=== PATIENT | male | born 1965 | race Caucasian/White ===

== ENCOUNTER 2023-12-09 09:53 | Emergency (ER) | payer OTHER, SELFPAY ==
[2023-12-09 10:07] VITALS: BP 113/71; PULSE 82; RESP 16; TEMP 36.6; O2SAT 93; BMI 31.3
[2023-12-09 10:24] LABS: Basophils Absolute Auto 0.1 X10*3/uL (0.0-0.2); Basophils Percent Auto 1.5 % (0-2); Eosinophils Absolute Auto 0.1 X10*3/uL (0.0-0.4); Eosinophils Percent Auto 1.8 % (0-4); Hematocrit 44.3 % (42.0-52.0); Hemoglobin 15.9 g/dl (14.0-18.0); Imm Gran Abs Auto 0.03 X10*3/uL (0.00-0.03); Imm Gran Pct Auto 0.4 % (0.0-0.4); Lymphocytes Percent Auto 25.6 % (20-40); MANUAL DIFF FLAG NO; Mean Corpuscular HGB Conc 35.9 g/dl (31.0-36.0); Mean Corpuscular Hemoglobin 35.1 pg (27.0-33.0); Mean Corpuscular Volume 97.8 fL (80.0-98.0); Mean Platelet Volume 9.1 fL (9.4-12.4); Monocytes Absolute Auto 0.7 X10*3/uL (0.1-1.2); Monocytes Percent Auto 9.5 % (2-11); Neutrophils Absolute Auto 4.8 x10*3/uL (2.0-8.3); Neutrophils Percent Auto 61.2 % (45-73); Platelet Count 219 X10*3/uL (160-400); Red Blood Count 4.53 X10*6/uL (4.60-5.80); Red Cell Distribution Width 12.2 % (11.0-16.0); White Blood Count 7.8 X10*3/uL (4.8-10.8)
[2023-12-09 10:38] LABS: Alanine Aminotransferase 33 U/L (0-40); Albumin Level 4.3 g/dL (3.5-5.0); Alkaline Phosphatase 51 U/L (39-117); Anion Gap 11 (12-20); Aspartate Amino Transferase 50 U/L (5-37); Bilirubin Total 0.4 mg/dL (0.0-1.0); Blood Urea Nitrogen 5 mg/dL (9-16); Calcium 9.3 mg/dL (8.4-10.2); Carbon Dioxide 26 mmol/L (22-29); Chloride 98 mmol/L (96-108); Creatinine Clr Calc Pharmacy 99.3; Estimated Glomerular Filt Rate > 60; Glucose Random 166 mg/dL (60-115); Lipase 17 U/L (8-78); Potassium 4.3 mmol/L (3.3-5.1); Sodium 131 mmol/L (135-145)
--- NOTE | 2023-12-09 11:07 | ED_ITS ---
HPI - General Adult General Chief complaint: Abdominal Pain Stated complaint: hernia Time Seen by Provider: 12/09/23 10:31 Source: patient Mode of arrival: ambulatory History of Present Illness ED Provider: Areli FUENTES narrative: Patient is a 58-year-old male with history of L4/5 fusion presenting to the emergency department with primary complaint of mild periumbilical abdominal pain swelling for the past 3 weeks. He states ?I used to have an inny and now I have an outtie.? Denies recent weight gain. States that he noticed this around 3 weeks ago and describes pain as mild. Denies any nausea, vomiting, diarrhea, constipation. Denies any urinary symptoms. Denies fevers. Also complaining of left hip pain and tingling radiating down upper leg. States has history of L4/5 fusion and has had similar symptoms in the past, reports most recent symptoms have been ongoing for 6 months. Denies any precipitating fall/trauma. States he is seeing his primary care provider on 12/13. MD complaint: abdominal pain, hip pain Onset (ago): week(s) Location: abdomen Severity: mild Quality: aching Pain Consistency: colicky Relieving factors: rest Exacerbating factors: movement Associated symptoms: denies other symptoms Treatments prior to arrival: none Related Data Previous Rx's ?Medication ?Instructions ?Recorded lidocaine 5 % topical patch 1 patch topical DAILY #15 ea 12/09/23 naproxen 500 mg tablet 500 mg PO BID #14 tabs 12/09/23 prednisone 20 mg tablet 40 mg (2 x 20 mg) PO DAILY #10 tabs 12/09/23 Allergies Allergy/AdvReac Type Severity Reaction Status Date / Time shellfish derived Allergy Itching Verified 12/09/23 10:10 Review of Systems 2 Review of Systems: As per HPI. Yes all other systems are reviewed and are negative Constitutional: Constitutional: Reports as per HPI [facility] Social History Social History Advance Directives: No Advance Directives Information Provided: Yes Physical Exam ED Vital Signs: Vital Signs - 24 hr 12/09/23 10:07 Temperature 97.9 F Pulse Rate 82 Respiratory Rate 16 Blood Pressure 113/71 Pulse Oximetry 93 Oxygen Delivery Method Room Air BMI result Body Mass Index 31.3 Vital signs have been reviewed and appear to be correct. Blood pressure normal. Heart rate normal. Respiratory rate normal. Temperature normal. Oxygen saturation normal. Const General: cooperative and no acute distress Orientation/consciousness: oriented to person, oriented to place, oriented to time and patient oriented x3 Limitations: no limitations HENMT Head: Yes normocephalic and Yes atraumatic Ears: external ears normal General nose exam: Normal external nose present Face and sinus: Yes face symmetric Mouth: oropharynx normal and moist mucous membranes Throat: Yes uvula midline Eyes Pupils: Equal, round and reactive pupils present Neck Neck: Yes normal visual inspection and Yes supple Resp Effort & Inspection: normal respiratory effort and able to speak in complete sentences Auscultation: clear to auscultation bilaterally Cardio Rate: regular rate Rhythm: regular rhythm Heart sounds: S1 normal heart sound present and S2 normal heart sound present GI Inspection: Yes visible herniation (small (2cm) periumbilical) Palpation (GI): Soft to palpation, nontender, no guarding, Hernia present umbilical (small), no pulsatile masses and No Rebound tenderness present Auscultation: normoactive bowel sounds General: Yes no CVA tenderness Back/Spine/Pelvis Back: no CVA tenderness Skin General skin exam: elasticity normal and turgor normal Neuro General: oriented to person, oriented to place, oriented to time, patient oriented x3, moves all extremities, no focal motor deficits and CN's II-XI intact bilaterally Cranial nerves: Yes Equal, round and reactive pupils present Cognition (Neuro): normal cognition Extrem General: Yes full ROM, Yes no pedal edema and Yes no calf tenderness Left lower extremity: hip/thigh Details: normal to inspection and normal ROM; no tenderness and foot Details: vascular exam Details: dorsalis pedis pulse present and posterior tibial pulse present Psych Mental Status: mental status grossly normal Affect: normal affect Thought process: Normal thought process present Medical Decision Making Medical Decision Making MDM Narrative: Patient is a 58-year-old male with history of L4/5 fusion presenting to the emergency department with primary complaint of mild periumbilical abdominal pain swelling for the past 3 weeks. On exam patient is awake, A+Ox3, VS WNL, afebrile, normal neurological exam without focal deficits, physical exam findings as above. Given reported symptoms and physical exam findings, initial differential includes umbilical hernia, lumbar radiculopathy, lumbar strain. Do not suspect septic joint, patient has full ROM, no erythema or warmth. Do not suspect incarcerated hernia. Labs notable for no leukocytosis, grossly within normal limits. Will send prescription for short course of prednisone to decrease inflammation for lumbar radiculopathy. Will refer to General surgery but advised patient to discuss this at his upcoming PCP appointment. Return precautions discussed at bedside. Patient verbalized understanding of and agreement with plan. Differential Diagnosis Differential Diagnoses: The differential diagnosis associated with the presentation includes As per [facility] Lab Data [facility] Lab Attestation statement: I reviewed the patient's lab results. as per [facility] 12/09/23 10:19 12/09/23 10:19 Labs: Lab Results 12/09/23 Range/Units 10:19 WBC 7.8 (4.8-10.8) X10*3/uL RBC 4.53 L (4.60-5.80) X10*6/uL Hgb 15.9 (14.0-18.0) g/dl Hct 44.3 (42.0-52.0) % MCV 97.8 (80.0-98.0) fL MCH 35.1 H (27.0-33.0) pg MCHC 35.9 (31.0-36.0) g/dl RDW 12.2 (11.0-16.0) % Plt Count 219 (160-400) X10*3/uL MPV 9.1 L (9.4-12.4) fL Immature Gran % (Auto) 0.4 (0.0-0.4) % Neut % (Auto) 61.2 (45-73) % Lymph % (Auto) 25.6 (20-40) % Orange % (Auto) 9.5 (2-11) % Eos % (Auto) 1.8 (0-4) % Baso % (Auto) 1.5 (0-2) % Lymph # (Auto) 2.0 (1.2-4.9) X10*3/uL Orange # (Auto) 0.7 (0.1-1.2) X10*3/uL Eos # (Auto) 0.1 (0.0-0.4) X10*3/uL Baso # (Auto) 0.1 (0.0-0.2) X10*3/uL Abs Immat Gran (auto) 0.03 (0.00-0.03) X10*3/uL Absolute Neuts (auto) 4.8 (2.0-8.3) x10*3/uL Absolute Nucleated RBC 0.000 (0.0-0.012) X10*3/uL Nucleated RBC % (auto) 0.0 (0.0-0.2) /100WBC Sodium 131 L (135-145) mmol/L Potassium 4.3 (3.3-5.1) mmol/L Chloride 98 (96-108) mmol/L Carbon Dioxide 26 (22-29) mmol/L Anion Gap 11 L (12-20) BUN 5 L (9-16) mg/dL Creatinine 0.86 (0.5-1.4) mg/dL Estim Creat Clear Calc 99.3 Estimated GFR > 60 Random Glucose 166 H (60-115) mg/dL Calcium 9.3 (8.4-10.2) mg/dL Total Bilirubin 0.4 (0.0-1.0) mg/dL AST 50 H (5-37) U/L ALT 33 (0-40) U/L Alkaline Phosphatase 51 (39-117) U/L Total Protein 7.0 (6.5-8.0) g/dL Albumin 4.3 (3.5-5.0) g/dL Lipase 17 (8-78) U/L External Record Review External record reviewed: Inpatient record, Office record and Outpatient record Prescription Management I considered prescription management with: Pain Medication and Other Discharge Plan Discharge Clinical Impression: Hernia, umbilical, Left lumbar radiculopathy Patient Disposition: Home, Self-Care Instructions: Umbilical Hernia (ED), Acute Low Back Pain (ED), Lumbar Radiculopathy (ED), Umbilical Hernia Repair (DC) Additional Instructions: You were evaluated today for abdominal and hip pain. Your exam showed evidence of an umbilical hernia. Please follow-up with your primary care provider about this at your appointment next week. You are being referred to General surgery for further management. You are also being treated for lumbar radiculopathy which is likely causing your left hip pain with naproxen and prednisone. You are also being prescribed topical lidocaine patches which you can wear for up to 12 hours in a 24 hour period. Please take all prescriptions as directed. Return to the emergency department if you develop increasing abdominal pain, persistent vomiting, difficulty having bowel movements, fever, new weakness, numbness, tingling to your extremities or any other concerning symptoms. Prescriptions: New prednisone 20 mg tablet 40 mg PO DAILY Qty: 10 0RF lidocaine 5 % adhesive patch,medicated 1 patch topical DAILY Qty: 15 0RF Rx Instructions: leave on most painful area for up to 12 hrs naproxen 500 mg tablet 500 mg PO BID Qty: 14 0RF Referrals: [facility] General Surgeons [Provider Group] Print Language: Vietnamese
[2023-12-09 11:54] VITALS: BP 128/76; PULSE 75; RESP 16; TEMP 36.9; O2SAT 93
== END 2023-12-09 11:56 | disposition home or self-care (01) ==
PROVIDERS: Emergency Provider Emergency Medicine; PCP Internal Medicine
DX: K42.9 Umbilical hernia without obstruction or gangrene (principal); M54.16 Radiculopathy, lumbar region; Z98.1 Arthrodesis status
CPT/HCPCS: 36415; 80053; 83690; 85025; 99282; 99283

== ENCOUNTER 2024-02-08 08:57 | Outpatient (REF) | payer OTHER, SELFPAY | END 2024-02-08 08:58 | disposition home or self-care (01) | LOC: HO.BBR 08:57 | PROVIDERS: PCP Internal Medicine; Visit Provider Internal Medicine | DX: Z13.89 Encounter for screening for other disorder (principal) ==

== ENCOUNTER 2024-03-21 08:54 | Outpatient (REF) | payer OTHER, SELFPAY | END 2024-03-21 08:55 | disposition home or self-care (01) | LOC: HO.BBR 08:54 | PROVIDERS: PCP Internal Medicine; Visit Provider Internal Medicine | DX: Z13.89 Encounter for screening for other disorder (principal) ==

== ENCOUNTER 2024-04-11 09:13 | Outpatient (REF) | payer OTHER, SELFPAY | END 2024-04-11 09:14 | disposition home or self-care (01) | LOC: HO.BBR 09:13 | PROVIDERS: PCP Internal Medicine; Visit Provider Internal Medicine | DX: Z13.89 Encounter for screening for other disorder (principal) ==

== ENCOUNTER 2024-04-13 09:35 | Emergency (ER) | payer OTHER, SELFPAY ==
--- NOTE | ~2024-04-13 | XR_ITS ---
EXAMINATION: XR RIBS, RIGHT CLINICAL INFORMATION: Fall. Pain and shortness of breath. COMPARISON: None available. TECHNIQUE: PA view of the chest as well as 3 views of the right ribs. FINDINGS: Small right-sided hydropneumothorax. Linear scarring versus atelectasis within the adjacent right lung base. No left-sided pleural effusion. No left-sided pneumothorax. Unremarkable cardiomediastinal silhouette. There are mildly displaced fractures of the lateral aspect of the right 8th through 12th ribs. No concerning lytic or blastic osseous lesion. No abnormal soft tissue calcification. XR/XR ribs RT min 3V w CXR1V IMPRESSION: 1. Mildly displaced fractures of the lateral aspect of the right 8th through 12th ribs. 2. Small right-sided hydropneumothorax with linear scarring versus atelectasis within the adjacent right lung base. No left-sided pneumothorax. This critical result was discussed with LATASHA Shepherd at 11:45 AM on 04/13/2024, and it was ascertained that the content and urgency of the report was understood at the time of direct communication. Electronically signed by: Prasanth Cochran MD 04/13/2024 12:07 PM EDT
--- NOTE | ~2024-04-13 | CT_ITS ---
EXAMINATION: CT ABDOMEN AND PELVIS WITH CONTRAST CLINICAL INFORMATION: Question of abdominal bleeding, fractured ribs COMPARISON: None available. TECHNIQUE: Multidetector volumetric images were obtained from the superior aspect of the liver through the pubic symphysis following administration 85 mL of Omnipaque 350 intravenous contrast. Sagittal and coronal reformatted images were obtained on the technologist's workstation. Oral contrast: No This CT examination was performed using dose optimization techniques as appropriate, variously including the following: *Automated exposure control *Adjustment of mA and/or kV according to patient size (this includes techniques or standardized protocols for targeted exams where dose is matched to indication/reason for exam; i.e. extremities or head) *Use of iterative reconstruction technique DLP: 566 mGy-cm FINDINGS: LUNG BASES: There is small to moderate pleural effusion with adjacent atelectasis and [id number] right-sided pneumothorax . Partially visualized ribs on the right revealed fractures along the posterior axillary line LIVER, GALLBLADDER, AND BILIARY TREE: Liver is of low attenuation due to hepatic steatosis without evidence of rupture or lesions. The gallbladder is unremarkable with no evidence of radiopaque gallstones, gallbladder wall thickening, or obvious pericholecystic inflammatory changes. PANCREAS: Unremarkable. SPLEEN: Unremarkable. ADRENAL GLANDS: There is thickening of the left adrenal gland and less prominent thickening of the right adrenal gland without nodules KIDNEYS AND URETERS: The kidneys are normal in size, shape, and attenuation. No hydronephrosis, hydroureter, or calculi seen. No perinephric stranding. BLADDER: Unremarkable. GASTROINTESTINAL TRACT: The small and large bowel are unremarkable. The appendix is unremarkable. ABDOMINAL WALL: No significant hernia is appreciated. LYMPH NODES: Normal. VASCULAR: Aorta is mildly dilated, measured 2.9 x 2.5 cm infrarenal and calcified PELVIC VISCERA: Unremarkable. OSSEOUS STRUCTURES: No other fractures are identified. There are degenerative changes in lumbar spine CT/CT abdomen pelvis w IV con IMPRESSION: 1. Right-sided pneumothorax and pleural effusion. 2. Multiple right-sided rib fractures. 3. Hepatic steatosis. 4. Mild dilatation of infrarenal abdominal aorta. 5. Thickening of the adrenal glands. Fleischner guidelines were followed. Electronically signed by: Erika Dueñas MD 04/13/2024 03:43 PM EDT
--- NOTE | ~2024-04-13 | CT_ITS ---
EXAMINATION: CT HEAD WITHOUT CONTRAST CLINICAL INFORMATION: Fall COMPARISON: None available. TECHNIQUE: Contiguous axial imaging was performed from the skull base to vertex without intravenous administration of contrast. This CT examination was performed using dose optimization techniques as appropriate, variously including the following: *Automated exposure control *Adjustment of mA and/or kV according to patient size (this includes techniques or standardized protocols for targeted exams where dose is matched to indication/reason for exam; i.e. extremities or head) *Use of iterative reconstruction technique DLP: 775 mGy-cm FINDINGS: CT examination of the brain shows age-related involutional changes with prominence of the ventricles and sulci. Periventricular white matter hypodensities are evident, likely on the basis of chronic microvascular ischemic disease, perhaps somewhat greater than expected for age. There is a small left anterior ganglionic lacunar infarct.. No acute hemorrhage, mass effect or shift is evident. In the posterior fossa, the brainstem, cerebellum and fourth ventricle are unremarkable. The orbits and bony calvarium are intact. The right frontal sinus is under pneumatized and opacified. The paranasal sinuses and mastoid air cells are otherwise clear. CT/CT head/brain wo IV con IMPRESSION: 1. Involutional changes and microvascular disease perhaps somewhat greater than expected for age. 2. No acute hemorrhage, mass effect, shift or acute intracranial pathology. Electronically signed by: Agustin Garcia MD 04/13/2024 02:54 PM EDT
--- NOTE | ~2024-04-13 | CT_ITS ---
EXAMINATION: CT CERVICAL SPINE WITHOUT CONTRAST CLINICAL INFORMATION: Fall. COMPARISON: None available. TECHNIQUE: Contiguous axial imaging was performed from the upper chest through the skull base without intravenous administration of contrast. Coronal and sagittal reformats were obtained at the acquisition workstation. This CT examination was performed using dose optimization techniques as appropriate, variously including the following: *Automated exposure control. *Adjustment of mA and/or kV according to patient size (this includes techniques or standardized protocols for targeted exams where dose is matched to indication/reason for exam; i.e. extremities or head). *Use of iterative reconstruction technique. DLP: 567 mGy-cm FINDINGS: The atlantooccipital and atlantoaxial articulations remain well aligned. Moderate degenerative arthropathy of the atlantodental articulation. Straightening of the normal cervical lordosis. Otherwise, there is anatomic alignment of the vertebral bodies and posterior elements. No evidence of acute fracture or subluxation. Mild degenerative loss of C6 vertebral body height. The remaining vertebral body heights are maintained. Advanced degenerative disc disease at C2-C3. Moderate degenerative disc disease from C3-C6. Facet and uncovertebral joint arthropathy leads to osseous encroachment on the neural foramina from C2-T1. There is no prevertebral soft tissue swelling. The thyroid gland and remaining cervical soft tissues are within normal limits. The lung apices demonstrate no abnormalities. CT/CT cervical spine wo IV con IMPRESSION: 1. No evidence of acute fracture or traumatic subluxation of the cervical spine. 2. Moderate multilevel degenerative spondyloarthropathy of the cervical spine. Electronically signed by: Lucho Oneal DO 04/13/2024 03:07 PM EDT
--- NOTE | ~2024-04-13 | CT_ITS ---
EXAMINATION: CT CHEST WITH CONTRAST CLINICAL INFORMATION: Right hydropneumothorax COMPARISON: None available. TECHNIQUE: Multidetector volumetric CT imaging of the chest was obtained after the administration of 85 mL of Omnipaque 350 intravenous contrast without immediate adverse reactions. Axial MIP volume rendering provided. Sagittal and coronal reformatted images were obtained. This CT examination was performed using dose optimization techniques as appropriate, variously including the following: *Automated exposure control *Adjustment of mA and/or kV according to patient size (this includes techniques or standardized protocols for targeted exams where dose is matched to indication/reason for exam; i.e. extremities or head) *Use of iterative reconstruction technique DLP: 360 mGy-cm FINDINGS: LUNGS: Lungs are clear but there is mild to moderate hydropneumothorax on the right. There is atelectasis in the right lower lobe MEDIASTINUM: The mediastinum is normal. PLEURA: There is right-sided small pleural effusion AXILLA: No lymphadenopathy. UPPER ABDOMEN: Liver is of low attenuation due to hepatic steatosis there is thickening of the left adrenal gland. OSSEOUS STRUCTURES: 5 lower ribs on the right revealed evidence of fracture, including ribs 8,9, 10, [address]/CT chest w IV con IMPRESSION: 1. Mild to moderate hydropneumothorax on the right. 2. Atelectasis in the right lower lobe. 3. Hepatic steatosis. 4. Thickening of the left adrenal gland. 5. Multiple ribs fractures are Fleischner guidelines were followed. Electronically signed by: Erika Dueñas MD 04/13/2024 03:34 PM EDT
[2024-04-13 09:54] VITALS: BP 112/67; PULSE 93; RESP 16; TEMP 36.6; O2SAT 96; BMI 29.4
[2024-04-13 10:51] VITALS: BP 115/70; PULSE 87; RESP 14; O2SAT 93
--- OUTSIDE RECORDS SUMMARY | 2024-04-13 10:58 | XMS_ITS | Continuity of Care Document ---
Author Organization [facility] Address [address] [place] [id number]- Care Team Providers Care Show Host Name Role Phone Tevin FLORIAN, Trent Lopez Primary Care Physician Encounter [facility] [place] Date(s): 09/18/19 - 09/28/[address] [address]- [facility] Attending Physician: Lawanda Wagner Admitting Physician: Lawanda Wagner Referring Physician: AdmtrLawanda Allergies, Adverse Reactions, Alerts Substance Reaction Severity Status shellfish itching Active Immunizations Given and Recorded Vaccine Date Status Refusal Reason tetanus/diphtheria/pertussis, acel(Tdap) 01/28/17 Given Pneumococcal Vaccine (oldterm) 1 02/11/07 Given 1Result Comment: lot # [id number] exp november 01, 2008 Medications Afeditab CR 60 mg oral tablet, extended release 1 tablet = 60 mg, By Mouth, Daily, # 30 tablet, 0 Refills, Maintenance, 10/07/18 9:01:40 EDT, ER Tablet Start Date: 10/07/18 Status: Ordered metoprolol 200 mg oral tablet, extended release 1 tablet = 200 mg, By Mouth, Daily, # 30 tablet, 0 Refills, Maintenance, 10/07/18 9:01:39 EDT, ER Tablet Start Date: 10/07/18 Status: Ordered multivitamin Therapeutic Multiple Vitamins oral tablet 1 tablet, By Mouth, Daily, # 30 tablet, 0 Refills, Maintenance, 01/23/16 8:43:02, Tablet, 1 tablet By Mouth Daily Start Date: 01/23/16 Status: Ordered omeprazole 20 mg oral delayed release tablet 1 tablet = 20 mg, By Mouth, Daily, # 30 tablet, 3 Refills, Maintenance, 04/19/19 13:24:00 EDT Start Date: 04/19/19 Status: Ordered Problem List Condition Effective Dates Status Health Status Inform ant Alcohol abuse(Confirmed) Active Arthritis(Confirmed) 1 Active Chest swelling(Confirmed) Active Disorder of lung(Confirmed) Active Hemochromatosis(Confirmed) Active Hypertensive disorder(Confirmed) Active Pancreatitis(Confirmed) 2007 Active Tobacco abuse(Confirmed) Active 1Left Ankle Social History Social History Type Response Smoking Status Never smoker entered on: 02/26/15 Sex
--- OUTSIDE RECORDS SUMMARY | 2024-04-13 10:58 | XMS_ITS | Continuity of Care Document ---
Author Organization [facility] Address [address] [place] [address]- Care Team Providers Care Operations And Maintenance Manager Name Role Phone Not on Staff, PCP Primary Care Physician Unavail able Encounter [facility] [place] Date(s): 05/23/21 - 06/22/21 [facility] [address] [place] [address]- Attending Physician: Lawanda Wagner Admitting Physician: Lawanda Wagner Referring Physician: AdmtrLawanda Allergies, Adverse Reactions, Alerts Substance Reaction Severity Status shellfish itching Active Immunizations Given and Recorded Vaccine Date Status Refusal Reason SARS-CoV-2 (COVID-19) Ad26 vaccine 10/07/20 Given tetanus/diphtheria/pertussis, acel(Tdap) 01/28/17 Given Pneumococcal Vaccine (oldterm) [...] 13:24:00 EDT Start Date: 04/19/19 Status: Ordered Tylenol Extra Strength 500 mg oral tablet 2 tablet = 1,000 mg, By Mouth, Every 8 hours, 0 Refills, Maintenance, 10/17/19 8:21:00 EDT Start Date: 10/17/19 Status: Ordered Problem List Condition Effective Dates Status Health Status Inform ant Alcohol abuse(Confirmed) Active Arthritis(Confirmed) 1 Active Chest swelling(Confirmed) Active Disorder of lung(Confirmed) Active Hemochromatosis(Confirmed) Active Hypertensive disorder(Confirmed) Active Pancreatitis(Confirmed) 2006 Active Tobacco abuse(Confirmed) Active 1Left Ankle Social History Social History Type Response Smoking Status Never smoker entered on: 02/26/15 Sex
--- OUTSIDE RECORDS SUMMARY | 2024-04-13 10:58 | XMS_ITS | Continuity of Care Document ---
Author Organization [facility] Address [address] [place] [address]- Care Team Providers Care Rn Home Care Name Role Phone Not on Staff, PCP Primary Care Physician Unavail able [place] [facility] Date(s): 06/11/22 - 07/11/22 [facility] [address] [place] [address]- Attending Physician: Lawanda Wagner Admitting Physician: Lawanda [...] ER Tablet Start Date: 10/07/18 Status: Ordered gabapentin 300 mg oral capsule Refills 0, Maintenance, 06/15/22 9:53:00 EST, Partial fill upon patient request if the prescriptionis for a schedule II opioid drug. Start Date: 06/15/22 Status: Ordered metoprolol 200 mg oral tablet, [...] Date: 10/17/19 Status: Ordered Problem List Condition Confirmation Course Effective Dates Status H ealth Status Informant Alcohol abuse Confirmed Active Arthritis 1 Confirmed Active Chest swelling Confirmed Active Disorder of lung Confirmed Active Hemochromatosis Confirmed Active Hypertensive disorder Confirmed Active Pancreatitis Confirmed 2007 Active Tobacco abuse Confirmed Active 1Left Ankle Social History Social History Type Response Smoking Status Never smoker entered on: 02/26/15 Sex Patient Care team information Care Team Personnel Name: Itzel Alcantar RN Position: [facility] Rad RN Member Role: Primary Care Nurse Name: Margarita Rogers RN Position: [facility] Onco RN Member Role: Primary Care Nurse Name: Not on Staff, PCP Position: [facility] Physician (General Medicine) Member Role: PCP Care Team Related Persons Name: EMANUEL QUIROGA Address: [address] [place] [address] Name: EMANUEL LOUIS Address: home [address] [place] [address] Name: CEE FOWLER Address: [place] [address] Name: KEELEY PUENTES Address: home [address] [place] [address] Name: FRANCISCO BUSTILLO
--- OUTSIDE RECORDS SUMMARY | 2024-04-13 10:58 | XMS_ITS | Continuity of Care Document ---
Author Organization [facility] Address [address] [place] [address]- Care Team Providers Care Water Quality Control Engineer Name Role Phone Tevin FLORIAN, Trent Lopez Primary Care Physician Encounter [facility] [place] [facility] Date(s): 08/08/19 - 08/18/[address] [address]- [facility] Attending Physician: Lawanda Wagner Admitting [...]
--- OUTSIDE RECORDS SUMMARY | 2024-04-13 10:58 | XMS_ITS | Continuity of Care Document ---
Author Organization [facility] Address [address] [place] [address]- Care Team Providers Care Striping Machine Operator Name Role Phone Michael Hernandez MD Primary Care Physician Encounter [facility] [id number] Date(s): 08/08/19 - 01/10/[address] [address]- [facility] Discharge Disposition: A-D/C Home Attending Physician: Trent Abarca MD Admitting Physician: Trent Abarca MD Referring Physician: Chuckie Ingram MD Allergies, Adverse Reactions, Alerts Substance Reaction Severity [...]
--- OUTSIDE RECORDS SUMMARY | 2024-04-13 10:58 | XMS_ITS | Continuity of Care Document ---
Author Organization [facility] Address [address] [place] [address]- Care Team Providers Care Tack Puller Name Role Phone Not on Staff, PCP Primary Care Physician Unavail able [place] [facility] [place](s): 12/08/22 - 01/07/23 [facility] [address] [place] [id number] Attending Physician: Lawanda Wagner Admitting Physician: AdmLawanda bennett Referring Physician: Admtr, Lawanda Allergies, Adverse Reactions, Alerts Substance Reaction Severity [...] Team Personnel Name: Itzel Alcantar RN Position: [facility] Rad RN Member Role: Primary Care Nurse Name: Margarita Rogers RN Position: [facility] Onco RN Member Role: Primary Care Nurse Name: Not on Staff, PCP Position: [facility] Physician (General Medicine) Member Role: PCP Care Team Related Persons Name: EMANUEL QUIROGA Address: home [address] [id number] Name: EMAUNEL LOUIS Address: home [address] [place] [address] Name: CEE FOWLER Address: [place] [address] Name: KEELEY PUENTES Address: [address] [place] [address] Name: FRANCISCO BUSTILLO
--- OUTSIDE RECORDS SUMMARY | 2024-04-13 10:58 | XMS_ITS | Continuity of Care Document ---
Author Organization [facility] Address [address] [place] [address]- Care Team Providers Care Appraiser Real Estate Name Role Phone Not on Staff, PCP Primary Care Physician Unavail able Encounter [place] Date(s): 06/15/22 - 07/15/22 [facility] [address] [place] [address] Allergies, Adverse Reactions, Alerts Substance Reaction Severity [...] Team Personnel Name: Itzel Alcantar RN Position: [facility] Rad RN Member Role: Primary Care Nurse Name: Margarita Rogers RN Position: [facility] Onco RN Member Role: Primary Care Nurse Name: Not on Staff, PCP Position: [facility] Physician (General Medicine) Member Role: PCP Care Team Related Persons Name: EMANUEL QUIROGA Address: home [address] [place] [address] Name: EMANUEL LOUIS Address: home [address] [place] [address] Name: CEE FOWLER Address: [place] [address] Name: KEELEY PUENTES Address: home [address] [place] [address] Name: FRANCISCO BUSTILLO
--- OUTSIDE RECORDS SUMMARY | 2024-04-13 10:58 | XMS_ITS | Continuity of Care Document ---
Author Organization [facility] Address [address] [place] [address]- Care Team Providers Care Dispute Coordinator Name Role Phone Michael Hernandez MD Primary Care Physician Thong lam [place] [facility] [place] - 03/28/[address] [address]- [facility] Discharge Disposition: A-D/C Home Attending Physician: Michael Hernandez MD Admitting Physician: Michael Hernandez MD Referring Physician: Michael Hernandez MD Allergies, Adverse Reactions, Alerts Substance Reaction [...]
--- OUTSIDE RECORDS SUMMARY | 2024-04-13 10:58 | XMS_ITS | Continuity of Care Document ---
Author Organization [facility] C ancer Care Address [address] [place] [address]- Care Team Providers Care Animal Cop Name Role Phone Not on Staff, PCP Primary Care Physician Unavail able [place] [facility]22 - 08/15/22 [facility] [address] [place] [address]- Discharge Disposition: A-D/C Home Attending Physician: Dewey FLORIAN, Jeremias Kinney Admitting Physician: Jeremias Palomo MD Referring Physician: Not on Staff, Referring MD Allergies, Adverse Reactions, Alerts Substance Reaction [...] Active Tobacco abuse Confirmed Active 1Left Ankle Vital Signs Most recent to oldest [Reference Range]: 1 Height 172.72 cm (06/15/22 9:46 AM) Weight 84.8 kg (06/15/22 9:46 AM) Oxygen Saturation [94-100 %] 98 % (06/15/22 9:46 AM) Pulse Rate [55-90 bpm] 89 bpm (06/15/22 9:46 AM) Body Mass Index [18.5-24.99 kg/m2] 28.43 kg/m2 *H* (06/15/22 9:46 AM) Blood Pressure [90-138/55-84 mm Hg] 134/ 71mm Hg (06/15/22 9:46 AM) Temperature [96.8-100.4 DegF] 97.3 DegF (06/15/22 9:46 AM) Mode of Delivery (Oxygen) Room air (06/15/22 9:46 AM) Blood pressure sites Arm, right (06/15/22 9:46 AM) Temperature Route Oral (06/15/22 9:46 AM) Dry Weight 84.8 kg (06/15/22 9:46 AM) Weight Obtained Via Standing scale (06/15/22 9:46 AM) Dry Weight Obtained Via Standing scale (06/15/22 9:46 AM) Social History Social History Type Response Smoking Status Never smoker entered on: 02/26/15 Sex Note * Renea Frost: PERFORM, SIGN, VERIFY Event Display: Patient Education/Instruction Authored Date: [id number] [facility] *Heme/Onc Adult Clinical Summary Name PARVIZ QUIROGA Age 57 Years 1965 PCP Not on Staff, PCP PCP Phone Visit Date 06/11/2022 13:32:00 Additional Instructions: Scheduled Appointments?? Future Appointments ?No Future Appointments Scheduled Follow-Up Instructions ?? With: Address: When: Jeremias CastleDana [facility], [address] [place] [address] Hematology Oncology [place] [id number] [facility] (1) 06/14/2023 9:00 AM Diagnosis Medications: Please continue your medications until treatment is completed or stopped by your provider. Discuss any questions related to medications with your provider. Medications to Continue with No Changes These medications were not printed or sent to your pharmacy Acetaminophen (Tylenol Extra Strength 500 mg oral tablet) 2 tab(s) Oral every 8 hours. Next Dose: Gabapentin (gabapentin 300 mg oral capsule) Next Dose: Metoprolol (metoprolol 200 mg oral tablet, extended release) 1 tab(s) Oral Daily. Refills: 0. Next Dose: Multivitamin (multivitamin Therapeutic Multiple Vitamins oral tablet) 1 tab(s) Oral Daily. Refills:0. Next Dose: NIFEdipine (Afeditab CR 60 mg oral tablet, extended release) 1 tab(s) Oral Daily. Refills: 0. Next Dose: Omeprazole (omeprazole 20 mg oral delayed release tablet) 1 tab(s) Oral Daily. Refills: 3. Next Dose: Allergy Info:?? shellfish Medications Given This Visit Future Orders ?No future orders Vital Signs Height 172.72 cm Weight 84.8 kg BMI 28.43 kg/m2 Blood Pressure 134 mm Hg/71 mm Hg Temperature 97.3 DegF Pulse Rate 89 bpm Respiratory Rate 02 Sat Mode of Delivery 98 %/Room air You can now view a summary of your hospital visit from the comfort of your home through a free online portal called [employer]. [employer] is a website that allows you to securely view your medical information including discharge summary, medications and follow-up visits. ??You can alsosend a secure electronic message to your doctor???s office to request appointments, renew medications or just ask a question. You can enroll at [email or web address] or register during your next office visit. Disclaimer:?? The information provided is of a general nature and is intended to be used in conjunction with the recommendations and advice of your health care practitioner. ??Every effort has been made to ensure that the information provided is accurate and complete at the time it is provided to you however, as your needs change, or, as new ??information becomes available, different or additional instructions may be required. If you have questions, please consult with your primary care provider or pharmacist, as appropriate. ??This information is not intended to serve as substitution for assessment and evaluation by a qualified health care provider. If you do not have a primary care provider, you may find a [facility] provider by calling [facility] at [phone]. For information about the plan of care including goals and instructions for your diagnosis, please see the patient education orders section of this document. Patient Education Materials?? The content of this educational material or handout may have been modified, supplemented, or adapted from its original content and format to support your individualized medical care. Patient Care team information Care Team Personnel Name: Itzel Alcantar RN Position: [facility] Rad RN Member Role: Primary Care Nurse Name: Margarita Rogers RN Position: [facility] Onco RN Member Role: Primary Care Nurse Name: Not on Staff, PCP Position: [facility] Physician (General Medicine) Member Role: PCP Care Team Related Persons Name: JUNAIDEMANUEL Address: home [address] [place] [address] Name: EMANUEL LOUIS Address: home [address] [place] [address] Name: CEE FOWLER Address: [place] [address] Name: KEELEY PUENTES Address: home [address] [place] [address] Name: FRANCISCO BUSTILLO
--- OUTSIDE RECORDS SUMMARY | 2024-04-13 10:58 | XMS_ITS | Continuity of Care Document ---
Author Organization [facility] C ancer Care Address [address] [place] [address]- Care Team Providers Care Coconut Candy Maker Name Role Phone Not on Staff, PCP Primary Care Physician Unavail able Encounter [facility] [place] Date(s): 05/13/20 - 07/17/20 [facility] [address] [place] [address]- Discharge Disposition: A-D/C Home Attending Physician: Dewey [...]
--- OUTSIDE RECORDS SUMMARY | 2024-04-13 10:58 | XMS_ITS | Continuity of Care Document ---
Author Organization [facility] C ancer Care Address [address] [place] [address]- Care Team Providers Care District Extension Service Agent Name Role Phone Not on Staff, PCP Primary Care Physician Unavail able Encounter [facility] [place] Date(s): 12/08/22 - 05/11/23 [facility] [address] [place] [address]- Discharge Disposition: A-D/C Home Attending Physician: Dewey FLORIAN, Jeremias Kinney Admitting Physician: Dewey FLORIAN, Jeremias Kinney Referring Physician: Not on Staff, Referring MD [...] Team Personnel Name: Itzel Alcantar RN Position: [facility] Rad RN Member Role: Primary Care Nurse Name: Margarita Rogers RN Position: [facility] Onco RN Member Role: Primary Care Nurse Name: Not on Staff, PCP Position: [facility] Physician (General Medicine) Member Role: PCP Name: Jeremias Palomo MD Position: [facility] Physician - Oncology Med Service: Hematology & Oncology Member Role: Admitting Physician Address: Address: [address] [place] [address] Cancer Care [facility] [place] [address]- Care Team Related Persons Name: EMANUEL QUIROGA Address: home [address] [place] [address] Name: EMANUEL LOUIS Address: home [address] [place] [address] Name: CEE FOWLER Address: [place] [address] Name: KEELEY PUENTES Address: home [address] [place] [address] Name: FRANCISCO BUSTILLO
--- OUTSIDE RECORDS SUMMARY | 2024-04-13 10:58 | XMS_ITS | Continuity of Care Document ---
Author Organization [facility] C ancer Care Address [address] [place] [address]- Care Team Providers Care Scaffold Builder Name Role Phone Not on Staff, PCP Primary Care Physician Unavail able Encounter [facility] [place] Date(s): 06/07/23 - 01/10/24 [facility] [address] [place] [id number] Discharge Disposition: A-D/C Home Attending Physician: Dewey [...] Oncology Member Role: Admitting Physician Address: Address: [address] [place] [address] Cancer Care [facility] [place] [address]- Care Team Related Persons Name: EMANUEL QUIROGA Address: home [address] [place] [address] Name: EMANUEL LOUIS Address: home [address] [place] [address] Name: CEE FOWLER Address: [place] [address] Name: KEELEY PUENTES Address: home [address] [place] [address] Name: FRANCISCO BUSTILLO
--- OUTSIDE RECORDS SUMMARY | 2024-04-13 10:58 | XMS_ITS | Continuity of Care Document ---
Author Organization [facility] ancer [facility] Address [address] [place] [address]- Care Team Providers Care Casino Floor Person Name Role Phone Not on Staff, PCP Primary Care Physician Unavail able [place] [facility] 07/10/22 [facility] [address] [place] [address] Allergies, Adverse Reactions, Alerts Substance Reaction [...] Team Personnel Name: Itzel Alcantar RN Position: [facility] Rad RN Member Role: Primary Care Nurse Name: Margarita Rogers RN Position: [facility] Onco RN Member Role: Primary Care Nurse Name: Not on Staff, PCP Position: [facility] Physician (General Medicine) Member Role: PCP Care Team Related Persons Name: EMANUEL QUIROGA Address: home [address] [place] [address] Name: EMANUEL LOUIS Address: [address] [place] [address] Name: CEE FOWLER Address: [place] [address] Name: KEELEY PUENTES Address: home [address] [place] [address] Name: FRANCISCO BUSTILLO
--- OUTSIDE RECORDS SUMMARY | 2024-04-13 10:59 | XMS_ITS | Continuity of Care Document ---
Author Organization [facility] Address [address] [place] [address]- Care Team Providers Care Yard Pilot Name Role Phone Michael Hernandez MD Primary Care Physician Encounter [facility] [place] Date(s): 10/30/19 - 01/16/[address] [address]- [facility] Discharge Disposition: A-D/C Home Attending Physician: Michael Hernandez MD Admitting Physician: Michael Hernandez MD Referring Physician: Chuckie Ingram MD Allergies, [...]
--- OUTSIDE RECORDS SUMMARY | 2024-04-13 10:59 | XMS_ITS | Continuity of Care Document ---
Author Organization [facility] C ancer Care Address [address] [place] [address]- Care Team Providers Care Lift Supervisor Name Role Phone Not on Staff, PCP Primary Care Physician Unavail able Encounter [facility] Date(s): 05/23/21 - 03/11/22 [facility] [address] [place] [address]- Discharge Disposition: A-D/C Home Attending Physician: Dewey [...] 2007 Active Tobacco abuse(Confirmed) Active 1Left Ankle Vital Signs Most recent to oldest [Reference Range]: 1 Height 172.72 cm (05/30/21 9:20 AM) Weight 82.1 kg (05/30/21 9:20 AM) Pulse Rate [55-90 bpm] 79 bpm (05/30/21 9:20 AM) Body Mass Index [18.5-24.99] 27.52 *H* (05/30/21 9:20 AM) Blood Pressure [90-138/55-84 mm Hg] 122/ 68mm Hg (05/30/21 9:20 AM) Temperature [96.8-100.4 DegF] 97.2 DegF (05/30/21 9:20 AM) Blood pressure sites Arm, right (05/30/21 9:20 AM) Temperature Route Temporal (05/30/21 9:20 AM) Dry Weight 82.1 kg (05/30/21 9:20 AM) Weight Obtained Via Standing scale (05/30/21 9:20 AM) Dry Weight Obtained Via Standing scale (05/30/21 9:20 AM) Social History Social History Type Response Smoking Status Never smoker entered on: 02/26/15 Sex Care Team Personnel Name: Not on Staff, PCP
--- OUTSIDE RECORDS SUMMARY | 2024-04-13 10:59 | XMS_ITS | Continuity of Care Document ---
Author Organization [facility] C ancer Care Address [address] [place] [address]- Care Team Providers Care Multimedia Educational Specialist Name Role Phone Not on Staff, PCP Primary Care Physician Unavail able Encounter [facility] [place] Date(s): 05/13/20 - 06/12/20 [facility] [address] [place] [id number] Attending Physician: Lawanda Wagner Admitting Physician: Lawanda [...]
--- OUTSIDE RECORDS SUMMARY | 2024-04-13 10:59 | XMS_ITS | Continuity of Care Document ---
Author Organization [facility] C ancer Care Address [address] [place] [address]- Care Team Providers Care Supervisor In Circuit Testing Name Role Phone Not on Staff, PCP Primary Care Physician Unavail able Encounter [facility] Date(s): 05/17/20 - 06/16/20 [facility] [address] [place] [address]- Allergies, Adverse Reactions, Alerts Substance Reaction Severity [...]
--- OUTSIDE RECORDS SUMMARY | 2024-04-13 10:59 | XMS_ITS | Continuity of Care Document ---
Author Organization [facility] C ancer Care Address [address] [place] [address]- Care Team Providers Care Steamer Blocker Name Role Phone Not on Staff, PCP Primary Care Physician Unavail able Encounter [facility] [place] Date(s): 06/07/23 - 07/07/23 [facility] [address] [place] [id number] Attending Physician: Lawanda Wagner Admitting Physician: [...] Team Personnel Name: Itzel Alcantar RN Position: [facility] Rad RN Member Role: Primary Care Nurse Name: Margarita Rogers RN Position: [facility] Onco RN Member Role: Primary Care Nurse Name: Not on Staff, PCP Position: [facility] Physician (General Medicine) Member Role: PCP Care Team Related Persons Name: EMANUEL QUIROGA Address: home [address] [place] [id number] Name: EMANUEL LOUIS Address: home [address] [place] [address] Name: CEE FOWLER Address: [place] [address] Name: KEELEY PUENTES Address: home [address] [place] [address] Name: FRANCISCO BUSTILLO
--- OUTSIDE RECORDS SUMMARY | 2024-04-13 10:59 | XMS_ITS | Patient Health Record ---
Author Organization [facility] Address [address] [place], [place] [address] Care Team Providers Care Police Superintendent Name Role Phone No, PCP Primary Care Provider Lidia Novak Unavailable [phone] REASON FOR REFERRAL No Information SOCIAL HISTORY Sex Assigned At : Social History Observation Description Sex Assigned At Unknown PLAN OF TREATMENT No Information Insurance Providers Payer Name Payer Address Payer Phone Subscriber Number Group Number Insured Name Patient Relationship to Insured Coverage Start Date Coverage End Date [place] Medicare [place] [employer] [address] [place] [address] [id number] Justice Coello Self - patient is the insured 1
--- OUTSIDE RECORDS SUMMARY | 2024-04-13 10:59 | XMS_ITS | Continuity of Care Document ---
Author Organization [facility] Address [address] [place] [address]- Care Team Providers Care Lapel Padder Name Role Phone Michael Hernandez MD Primary Care Physician Thong lam [place] [facility] - 04/27/[address] [address]- [facility] Attending Physician: Lawanda Wagner Admitting Physician: Lawanda [...]
--- NOTE | 2024-04-13 11:19 | ED_ITS ---
HPI - General Adult General Chief complaint: Fall Stated complaint: sob-r flank pain-back pain Time Seen by Provider: 04/13/24 11:10 Source: patient Mode of arrival: ambulatory Limitations: no limitations History of Present Illness ED Provider: Reji Shepherd PA-C HPI narrative: 59 yold male with pmh of lumbar spine fusion and is a smoker presents to the ED for Right flank/rib pain since 04/02/2024 Since falling down stairs. Patient states he fell down 8 flights of stairs due to slippery carpet on 04/02/2024. Patient states he fell directly on right flank right rib area. Patient denies hitting head or loss of consciousness. Patient is not on any blood thinner. Patient denies any nausea, vomiting, coughing blood, rectal bleeding, chest pain shortness of breath of movement, headache, dizziness, or pain in lower extremities. Related Data Previous Rx's ?Medication ?Instructions ?Recorded lidocaine 5 % topical patch 1 patch topical DAILY #15 ea 12/09/23 naproxen 500 mg tablet 500 mg PO BID #14 tabs 12/09/23 prednisone 20 mg tablet 40 mg (2 x 20 mg) PO DAILY #10 tabs 12/09/23 oxycodone 5 mg capsule 5 mg PO Q8H PRN pain 3 days #9 caps 04/13/24 Allergies Allergy/AdvReac Type Severity Reaction Status Date / Time shellfish derived Allergy Itching Verified 04/13/24 09:56 Review of Systems 2 Review of Systems: Right flank rib pain Yes all other systems are reviewed and are negative [facility] Social History Social History Alcohol intake: current Alcohol intake frequency: 3 or more drinks per day Alcohol type: beer Smoked in Last 30 Days: Yes Use of substances other than those prescribed or required for medical reasons: Yes Substance Use Type: Marijuana Advance Directives: No Advance Directives Information Provided: Yes Do you have a plan to hurt others: No Plan Physical Exam ED Vital Signs: Vital Signs - 24 hr 04/13/24 09:54 04/13/24 10:51 04/13/24 14:33 Temperature 97.9 F Pulse Rate 93 87 78 Respiratory Rate 16 14 16 Blood Pressure 112/67 115/70 141/81 H Pulse Oximetry 96 93 91 L Oxygen Delivery Method Room Air Room Air Room Air 04/13/24 16:41 04/13/24 17:37 Temperature 97.4 F 97.4 F Pulse Rate 90 90 Respiratory Rate 10 L 10 L Blood Pressure 154/79 H 154/79 H Pulse Oximetry 93 94 Oxygen Delivery Method Room Air Room Air BMI result Body Mass Index 29.4 Const General: cooperative, healthy appearing, comfortable, no acute distress, well developed, alert, awake and Physically active Orientation/consciousness: patient oriented x3 [facility] Head: Yes normal to inspection, Yes No palpable skull fracture present, Yes normocephalic and Yes atraumatic Ears: hearing grossly normal bilaterally, external ears normal, TM's normal bilaterally, TM normal on the right, TM normal on the left, EAC's normal, mastoids normal and no periauricular adenopathy Eyes General: appearance normal, both eyes and all related structures Neck Neck: Yes normal visual inspection, Yes full ROM, Yes no lymphadenopathy, Yes no meningeal signs, Yes trachea midline, Yes supple, No anterior neck swelling and No tender Chest Chest palpation & inspection: normal inspection of the chest and normal palpation of entire chest wall Chest/axillae images: 2 1. Positive for right lower rib flank ecchymosis and tenderness on palpation. Negative for crepitus. Resp Effort & Inspection: normal respiratory effort and able to speak in complete sentences Auscultation: clear to auscultation bilaterally Cardio Jugular venous distension: no JVD Heart sounds: S1 normal heart sound present and S2 normal heart sound present GI Inspection: Yes normal to inspection Palpation (GI): Soft to palpation, not firm, nontender, no guarding and not rigid General: No CVA tenderness and Yes no CVA tenderness Back/Spine/Pelvis Back: no CVA tenderness, No CVA tenderness and No back tenderness Back/spine/pelvis image: 2 1. Positive for right flank/lower rib ecchymosis with tenderness on palpation Skin General skin exam: no rashes or lesions noted, elasticity normal and turgor normal Neuro General: patient oriented x3, gait normal, tone normal, moves all extremities, Normal light touch and pain sensation, no meningeal signs, no focal motor deficits, CN's II-XI intact bilaterally and normal sensation to monofilament Extrem General: Yes normal to inspection, Yes full ROM and Yes capillary refill normal Psych Appearance: grossly normal, well kempt and not disheveled Medications Administered Discontinued Medications Generic Name Dose Route Start Last Admin Trade Name Freq PRN Reason Stop Dose Admin Iohexol 85 ml 04/13/24 12:57 04/13/24 12:57 Iohexol 350 Mg/Ml 75 Ml Infus..Btl IV 04/13/24 12:58 85 ml ONCE ONE Administration Medical Decision Making Medical Decision Making [facility] Narrative: 59-year-old male right flank ecchymosis with tenderness on palpation due to fall on the stairs since 04/02. Patient's chest x-ray pending.. 12:30pm: Spoke with Dr. Rene recommends patient getting a chest CT/abdominal CT scan. Patient presently not in nay any distress. 16:41pm: CT scan results came back and confirms right hydropneumothorax. Patient is stable. Patient not in distress. Dr. Rene states no surgical intervention needed. He states patient is stable and hydropneumothorax is 11 days. he states patient could be addmite for pain control overnight and repeat chest x-ray in the morning. He states if patient does not want to be admitted and patient could be discharged with pain medication follow-up with his clinic. Patient explained worrisome signs and informed to return to the ED immediately. Patient does not want to be admitted and would like to be discharged with pain medication. Patient informed to follow-up with Dr. Rene in his clinic. 4:53pm: O2 saturation on ambulation 95% without any distress or SOB. Ealier reading 02 readings of 93% and 91% were error and positional. Resp rate before discharge was 16. Differential Diagnosis Differential Diagnoses: The differential diagnosis associated with the presentation includes (Pneumothorax, hemothorax) Admission/Observation Consideration of admission/observation: Escalation of care including admission/observation considered Consult Healthcare Provider Management of the patient was discussed with: Clinical Trial Leader (Dr. Rene) Lab Data [facility] Lab Attestation statement: I reviewed the patient's lab results. 04/13/24 12:05 04/13/24 12:05 Labs: Lab Results 04/13/24 Range/Units 12:05 WBC 10.4 (4.8-10.8) X10*3/uL RBC 4.38 L (4.60-5.80) X10*6/uL Hgb 15.3 (14.0-18.0) g/dl Hct 43.6 (42.0-52.0) % MCV 99.5 H (80.0-98.0) fL MCH 34.9 H (27.0-33.0) pg MCHC 35.1 (31.0-36.0) g/dl RDW 12.0 (11.0-16.0) % Plt Count 241 (160-400) X10*3/uL MPV 9.2 L (9.4-12.4) fL Immature Gran % (Auto) 0.4 (0.0-0.4) % Neut % (Auto) 63.7 (45-73) % Lymph % (Auto) 22.9 (20-40) % Hand % (Auto) 10.0 (2-11) % Eos % (Auto) 1.7 (0-4) % Baso % (Auto) 1.3 (0-2) % Lymph # (Auto) 2.4 (1.2-4.9) X10*3/uL Hand # (Auto) 1.0 (0.1-1.2) X10*3/uL Eos # (Auto) 0.2 (0.0-0.4) X10*3/uL Baso # (Auto) 0.1 (0.0-0.2) X10*3/uL Abs Immat Gran (auto) 0.04 H (0.00-0.03) X10*3/uL Absolute Neuts (auto) 6.6 (2.0-8.3) x10*3/uL Absolute Nucleated RBC 0.000 (0.0-0.012) X10*3/uL Nucleated RBC % (auto) 0.0 (0.0-0.2) /100WBC PT 10.8 L (10.9-12.4) SEC INR 0.9 (0.9-1.1) APTT 35.4 (26.0-36.8) SEC Sodium 136 (135-145) mmol/L Potassium 4.7 (3.3-5.1) mmol/L Chloride 100 (96-108) mmol/L Carbon Dioxide 28 (22-29) mmol/L Anion Gap 13 (12-20) BUN 6 L (9-16) mg/dL Creatinine 0.87 (0.5-1.4) mg/dL Estim Creat Clear Calc 94.2 Estimated GFR > 60 Random Glucose 90 (60-115) mg/dL Calcium 9.6 (8.4-10.2) mg/dL Total Bilirubin 0.4 (0.0-1.0) mg/dL AST 31 (5-37) U/L ALT 24 (0-40) U/L Alkaline Phosphatase 94 (39-117) U/L Total Protein 7.1 (6.5-8.0) g/dL Albumin 4.2 (3.5-5.0) g/dL Independent Interpretation I performed an independent interpretation of an: Plain X-Ray and CT Scan Radiology Impression Discussion of test interpretation with radiology: I have reviewed the radiologist's reading. Independent Historian Clinical information obtained from an independent historian. History obtained from or confirmed by: Other (Patient) External Record Review External record reviewed: Other (Prior visits) Discharge Plan Discharge Clinical Impression: Pneumothorax Patient Disposition: Home, Self-Care Instructions: Traumatic Pneumothorax (ED) Additional Instructions: Imaging shows stable pneumothorax that occurred 11 days ago. Return to the ED immediately for any chest pain, shortness of breath, swelling of the neck, swelling of the face, pale skin, diaphoresis, lips turning blue, or any other concerning symptoms. You need to follow-up immediately with Dr. Rene our thoracic surgeon. Prescriptions: New oxycodone 5 mg capsule 5 mg PO Q8H PRN (Reason: pain) 3 Days Qty: 9 0RF Rx Instructions: Partial Fill upon patient request. No Action prednisone 20 mg tablet 40 mg PO DAILY Qty: 10 0RF lidocaine 5 % adhesive patch,medicated 1 patch topical DAILY Qty: 15 0RF Rx Instructions: leave on most painful area for up to 12 hrs naproxen 500 mg tablet 500 mg PO BID Qty: 14 0RF Referrals: Jose Miguel Rene MD [Physician] - (Right hydropneumothorax) Stand Alone Forms: Work/School Release Interventions: ED Discharge Assessment Last Done: 04/13/24 17:37 Discharge Date/Time: 04/13/24 17:38 Print Language: Syriac
[2024-04-13 12:11] LABS: MANUAL DIFF FLAG NO
[2024-04-13 12:12] LABS: Basophils Absolute Auto 0.1 X10*3/uL (0.0-0.2); Basophils Percent Auto 1.3 % (0-2); Eosinophils Absolute Auto 0.2 X10*3/uL (0.0-0.4); Eosinophils Percent Auto 1.7 % (0-4); Hematocrit 43.6 % (42.0-52.0); Hemoglobin 15.3 g/dl (14.0-18.0); Imm Gran Abs Auto 0.04 X10*3/uL (0.00-0.03); Imm Gran Pct Auto 0.4 % (0.0-0.4); Lymphocytes Absolute Auto 2.4 X10*3/uL (1.2-4.9); Lymphocytes Percent Auto 22.9 % (20-40); Mean Corpuscular HGB Conc 35.1 g/dl (31.0-36.0); Mean Corpuscular Hemoglobin 34.9 pg (27.0-33.0); Mean Corpuscular Volume 99.5 fL (80.0-98.0); Mean Platelet Volume 9.2 fL (9.4-12.4); Neutrophils Absolute Auto 6.6 x10*3/uL (2.0-8.3); Neutrophils Percent Auto 63.7 % (45-73); Platelet Count 241 X10*3/uL (160-400); Red Blood Count 4.38 X10*6/uL (4.60-5.80); White Blood Count 10.4 X10*3/uL (4.8-10.8)
[2024-04-13 12:21] LABS: INTERNATIONAL NORM RATIO 0.9 (0.9-1.1); Prothrombin Time 10.8 SEC (10.9-12.4)
[2024-04-13 12:23] LABS: Partial Thromboplastin Time 35.4 SEC (26.0-36.8)
[2024-04-13 12:28] LABS: Alanine Aminotransferase 24 U/L (0-40); Albumin Level 4.2 g/dL (3.5-5.0); Alkaline Phosphatase 94 U/L (39-117); Anion Gap 13 (12-20); Aspartate Amino Transferase 31 U/L (5-37); Bilirubin Total 0.4 mg/dL (0.0-1.0); Blood Urea Nitrogen 6 mg/dL (9-16); Calcium 9.6 mg/dL (8.4-10.2); Carbon Dioxide 28 mmol/L (22-29); Chloride 100 mmol/L (96-108); Creatinine Clr Calc Pharmacy 94.2; Estimated Glomerular Filt Rate > 60; Glucose Random 90 mg/dL (60-115); Potassium 4.7 mmol/L (3.3-5.1); Sodium 136 mmol/L (135-145); Total Protein 7.1 g/dL (6.5-8.0)
[2024-04-13] MEDS: iohexoL 350 MG/ML 75 ML INFUS..BTL 85 ML IV (12:57)
[2024-04-13 14:33] VITALS: BP 141/81; PULSE 78; RESP 16; O2SAT 91
[2024-04-13 16:41] VITALS: BP 154/79; PULSE 90; RESP 10; TEMP 36.3; O2SAT 93
[2024-04-13 17:37] VITALS: BP 154/79; PULSE 90; RESP 10; TEMP 36.3; O2SAT 94
== END 2024-04-13 17:38 | disposition home or self-care (01) ==
PROVIDERS: Physician Assistant; Emergency Provider Emergency Medicine; PCP Internal Medicine
DX: J93.9 Pneumothorax, unspecified (principal); R06.02 Shortness of breath; R07.81 Pleurodynia; M54.2 Cervicalgia; R01.2 Other cardiac sounds; R51.9 Headache, unspecified; R07.89 Other chest pain; F17.210 Nicotine dependence, cigarettes, uncomplicated; Z79.899 Other long term (current) drug therapy
CPT/HCPCS: 36415; 70450; 71101; 71260; 72125; 74177; 80053; 85025; 85610; 85730; 94010; 99284; Q9967

== ENCOUNTER 2024-04-17 09:31 | Outpatient (AMB) | payer OTHER, SELFPAY ==
--- NOTE | 2024-04-17 09:33 | A.OFFVIS_ITS ---
Vital Signs 04/17/24 09:43 Weight 194 lb BP 103/56 L Blood Pressure Location Lt brachial Position Sitting Pulse 96 Intake Visit Reasons: Rt pneumothorax Intake Note: Patient here to follow up ED visit on 04-13-24. Patient c/o: smoker for 40+yrs. Denies difficulty breathing. Ground Host/Hostess Required: No Accompanied by: Self / Same As Patient Allergies shellfish derived Allergy (Verified 04/17/24 09:38) Itching HPI Comments Details: Patient seen for follow-up status post recent hospitalization for multiple right rib fractures. All things considered, patient is doing quite well. Has no respiratory issues or complaints. Is costal discomfort is improving [facility] Medical History (Updated 04/17/24 @ 09:41 by HOLLEY Alarcon) Torn rotator cuff Sciatic nerve disease HTN (hypertension) Surgical History (Updated 04/17/24 @ 09:48 by Jose Miguel Rene MD) Previous back surgery Social History (Updated 04/17/24 @ 09:42 by HOLLEY Alarcon) Alcohol intake: current Alcohol intake frequency: 3 or more drinks per day Alcohol type: beer Cigarettes Per Day: 10 Substance Use Type: Marijuana Physical Exam Vital Signs: Last Vital Signs Pulse 96 04/17/24 09:43 BP 103/56 L 04/17/24 09:43 Chest Other: Chest breath sounds bilaterally. Right costal tenderness. No evidence of any ecchymosis or bruising. O2 saturation 96%. Unlabored respiration Assessment & Plan Assessment & Plan (1) Multiple fractures of rib involving four or more ribs: Code(s): S22.49XA - Multiple fractures of ribs, unspecified side, initial encounter for closed fracture Category: Surgical Plan Of inspissated, patient was doing quite well. He is encouraged to continue doing his incentive spirometry and will otherwise follow-up with me p.r.n.. All questions answered. Medications: Discontinued prednisone Discontinued Reason: Patient no longer taking 40 mg (2 x 20 mg) PO DAILY 10 tabs 0RF oxycodone Partial Fill upon patient request. Discontinued Reason: Patient Completed Course 5 mg PO Q8H 3 days PRN 9 caps 0RF pain Coding Level of Care Code Est Pt Level 4 (04150) Diagnoses Multiple fractures of rib involving four or more ribs S22.49XA
[2024-04-17 09:43] VITALS: BP 103/56; PULSE 96
== END 2024-04-17 09:54 | disposition home or self-care (01) ==
PROVIDERS: PCP Internal Medicine; Visit Provider Surgery
DX: S22.49XA Multiple fractures of ribs, unspecified side, initial encounter for closed fracture (principal)
CPT/HCPCS: 99214

== ENCOUNTER 2024-04-24 | Outpatient (REF) | payer OTHER, SELFPAY ==
--- OUTSIDE RECORDS SUMMARY | 2024-06-16 14:08 | XMS_ITS | Patient Health Record ---
Author Organization [facility] Address [address], [place] [id number] Care Team Providers Care Child Care Aide Name Role Phone No, PCP Primary Care Provider Lidia Novak Unavailable [phone] Reason For Referral No Information Plan Of Treatment No Information Insurance Providers Payer Name Payer Address Payer Phone Subscriber Number Group Number Insured Name Patient Relationship to Insured Coverage Start Date Coverage End Date [place] [employer] [address] [facility] [place] [address] [id number] Justice Coello Self - patient is the insured 1
== END 2024-04-24 00:01 | disposition home or self-care (01) ==
LOC: CF
PROVIDERS: PCP Internal Medicine; Visit Provider Surgery
DX: S22.41XD Multiple fractures of ribs, right side, subsequent encounter for fracture with routine healing (principal)
CPT/HCPCS: 99212

== ENCOUNTER → 2025-01-04 09:35 | Outpatient (BNV) | payer OTHER, SELFPAY | PROVIDERS: PCP Internal Medicine; Visit Provider Radiology Diagnostic Radiology | DX: M76.01 Gluteal tendinitis, right hip (principal); M25.551 Pain in right hip | CPT/HCPCS: 72192; 73502 ==

== ENCOUNTER 2025-01-04 09:57 | Emergency (ER) | payer OTHER, SELFPAY ==
--- NOTE | ~2025-01-04 | XR_ITS ---
EXAMINATION: XR HIP, RIGHT CLINICAL INFORMATION: pain, decreased ROM after fall COMPARISON: None available. TECHNIQUE: AP pelvis, and 2 views of the right hip. FINDINGS: No fracture, dislocation, or suspicious bone lesion. The pelvis is intact. 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 Degenerative changes present in the lower lumbar spine. Normal femoral head contour is without evidence of AVN. There is amorphous calcification at the right greater trochanter, in keeping with calcific bursitis or tendinitis. Soft tissues demonstrate diffuse vascular calcification. XR/XR hip RT w PEL1V IMPRESSION: 1. No acute bony abnormalities of the pelvis or right hip. 2. Mild degenerative changes bilateral hip joints and bilateral SI joints. 3. Calcific bursitis and/or tendinitis of the right greater trochanter. Electronically signed by: Guy Dillard MD 01/04/2025 10:41 AM EDT
--- NOTE | ~2025-01-04 | CT_ITS ---
EXAMINATION: CT PELVIS WITHOUT CONTRAST CLINICAL INFORMATION: Trauma COMPARISON: None available. TECHNIQUE: Helical scanning was performed with submillimeter collimation through the pelvis. Sagittal and coronal multiplanar 2-D reconstructions were obtained. This CT examination was performed using dose optimization techniques as appropriate, variously including the following: *Automated exposure control *Adjustment of mA and/or kV according to patient size (this includes techniques or standardized protocols for targeted exams where dose is matched to indication/reason for exam; i.e. extremities or head) *Use of iterative reconstruction technique FINDINGS: PELVIS: The urinary bladder is intact. The prostate is normal in size. Imaged bowel structures appear normal. Normal appendix visualized. There is advanced calcific atheromatous disease of the aorta, iliac arteries, common and profunda femoral arteries. The pelvic girdle musculature is normal in attenuation without abnormal fluid collection or hematoma. OSSEOUS STRUCTURES: No fracture or dislocation is evident. No suspicious bone lesion. There is an old healed fracture of S5. The hip joints demonstrate mild degenerative arthritis bilaterally. The sacrum is intact. There is mild degenerative arthritis in both SI joints. There is advanced degenerative spondylosis of the lower lumbar spine. There are no lumbar fractures identified. There is calcific tendinopathy of the distal gluteus medius and minimus tendons on the right. (Series 7, image 62). There is inflammation of the distal muscle and myotendinous junction. CT/CT pelvis wo IV con IMPRESSION: 1. The sacrum, pelvis, and proximal femurs are intact without acute fracture. 2. There is calcific tendinopathy of the gluteus medius tendons on the right. There is mild associated inflammation of the distal gluteus medius muscle. 3. There is mild degenerative arthritis in both hip joints. 4. There is advanced calcific atheromatous disease of the imaged major arterial vasculature. Electronically signed by: Guy Dillard MD 01/04/2025 02:19 PM EDT
[2025-01-04 10:15] VITALS: BP 104/59; PULSE 72; RESP 18; TEMP 36; O2SAT 92; BMI 30.2
[2025-01-04 11:17] LABS: MANUAL DIFF FLAG NO
[2025-01-04 11:20] LABS: Hematocrit 44.0 % (42.0-52.0); Hemoglobin 15.8 g/dl (14.0-18.0); Imm Gran Abs Auto 0.03 X10*3/uL (0.00-0.03); Imm Gran Pct Auto 0.3 % (0.0-0.4); Lymphocytes Absolute Auto 1.7 X10*3/uL (1.2-4.9); Mean Corpuscular HGB Conc 35.9 g/dl (31.0-36.0); Mean Corpuscular Hemoglobin 34.5 pg (27.0-33.0); Mean Corpuscular Volume 96.1 fL (80.0-98.0); NRBC Abs Auto 0.000 X10*3/uL (0.0-0.012); NRBC Pct Auto 0.0 /100WBC (0.0-0.2); Platelet Count 175 X10*3/uL (160-400); Red Blood Count 4.58 X10*6/uL (4.60-5.80); White Blood Count 8.7 X10*3/uL (4.8-10.8)
[2025-01-04 11:34] LABS: Alanine Aminotransferase 42 U/L (0-40); Albumin Level 3.6 g/dL (3.5-5.0); Alkaline Phosphatase 94 U/L (39-117); Anion Gap 12 (12-20); Aspartate Amino Transferase 81 U/L (5-37); Blood Urea Nitrogen 3 mg/dL (9-16); Calcium 8.3 mg/dL (8.4-10.2); Carbon Dioxide 28 mmol/L (22-29); Chloride 98 mmol/L (96-108); Creatinine Clr Calc Pharmacy 115.2; Estimated Glomerular Filt Rate > 60; Potassium 3.3 mmol/L (3.3-5.1); Sodium 135 mmol/L (135-145); Total Protein 6.4 g/dL (6.5-8.0)
--- OUTSIDE RECORDS SUMMARY | 2025-01-04 12:28 | XMS_ITS | Clinical Summary ---
Author Organization [facility] Address [address] [place] [address] Care Team Providers Care Recreation Engineer Name Role Phone Luis Sandoval MD Primary Care Provider [phone] Allergies Active Allergy Reactions Criticality Noted Date Comments Shellfish 11/01/2023 Medications Medication Sig Dispensed Refills Start Date End Date Status METOPROLOL SUCCINATE PO Take by mouth. 0 Active NIFEDIPINE PO Take by mouth. 0 Active acamprosate (CAMPRAL) 333 MG tablet Take 2 tablets (666 mg total) by mouth 3 (three) times a day. 0 Active amLODIPine (NORVASC) tablet 5 mg Take 1 tablet (5 mg total) by mouth daily. 0 Active atorvastatin (LIPITOR) tablet 20 mg Take 1 tablet (20 mg total) by mouth daily. 0 Active escitalopram (LEXAPRO) 5 MG tablet Take 1 tablet (5 mg total) by mouth daily. 0 Active fenofibrate (TRICOR) tablet 145 mg Take 1 tablet (145 mg total) by mouth daily. 0 Active folic acid (FOLVITE) tablet 1 mg Take 1 tablet (1 mg total) by mouth daily. 0 Active gabapentin (NEURONTIN) 300 MG capsule Take 1 capsule (300 mg total) by mouth 2 (two) times a day. 0 Active meloxicam (MOBIC) 15 MG tablet Take 1 tablet (15 mg total) by mouth daily. 0 Active omeprazole (PriLOSEC) 20 MG capsule Take 1 capsule (20 mg total) by mouth daily. 0 Active thiamine mononitrate (VITAMIN B-1) 100 MG tablet Take 1 tablet (100 mg total) by mouth daily. 0 Active Active Problems Patient Care Coordination No te Formatting of this note migh t be different from the original. Therapeutic Phlebotomy - [facility] Problem Noted Date Diagnosed Date Stenosis, cervical spine 09/16/2018 Subacromial bursitis of right shoulder joint 12/2018 Neck and shoulder pain 09/01/2018 Family History Medical History Relation Name Comments Diabetes Father Heart disease Mother Hypertension Mother Relation Name Status Comments Father Mother Social History Tobacco Use Types Packs/Day Years Used Date Smoking Tobacco: Every Day Cigarettes 47 Smokeless Tobacco: Never Tobacco Cessation:Ready to Q uit: Not Asked; Counseling Given: Not Answered Alcohol Use Standard Drinks/Week Comments Yes 0 (1 standard drink = 0.6 oz pur e alcohol) Sex and Gender Information Value Date Recorded Sex Assigned at Not on file Gender Identity Not on file Sexual Orientation Not on file Job Start Date Occupation Industry Not on file Not on file Not on file Last Filed Vital Signs Vital Sign Reading Time Taken Comments Blood Pressure 94/58 04/10/2024 10:27 AM EDT Pulse 95 04/10/2024 10:27 AM EDT Temperature 36.7 C (98 F) 04/10/2024 10:27 AM EDT Respiratory Rate - - Oxygen Saturation 94% 04/10/2024 10:27 AM EDT Inhaled Oxygen Concentration - - Weight 88.5 kg (195 lb) 04/10/2024 10:27 AM EDT Height 170.2 cm (5' 7 ) 04/10/2024 10:27 AM EDT Body Mass Index 30.54 04/10/2024 10:27 AM EDT Plan of Treatment Health Maintenance Due Date Last Done Comments Hepatitis C Screening 1965 Depression Screening 1976 BMI Counseling 01/14/1982 Preventative Health Evaluation 01/14/1982 DTap / Tdap / Td (1 - Tdap) 01/14/1983 Pneumococcal Vaccine (2 of 2 - PCV) 02/12/2008 02/11/2007 Colon Cancer Screening (Colonoscopy) 01/14/2009 Shingrix-Zoster Vaccine (1 o f 2) 01/14/2014 COVID-19 Vaccine (2 - 2023-2 5 season) 2024 10/07/2020 Influenza Vaccine (#1) 2025 3, 03/17/2021, 03/21/2020 RSV Adult > 60+ Yrs or (1 - 1-dose 75+ series) 01/14/2039 Hepatitis B Vaccines Aged Out No long er eligible based on patient's age to complete this topic RSV Ped < 20 months Aged Out No longe r eligible based on patient's age to complete this topic Care Teams Recreation Engineer Relationship Specialty Start Date End Date Luis Sandoval MD [address] [place] [address] [phone] PCP - General Primary Care 06/14/23
--- OUTSIDE RECORDS SUMMARY | 2025-01-04 12:28 | XMS_ITS | Clinical Summary ---
Author Organization [facility] [address] [place] [address] [place] [phone] Phone Care Team Providers Care Dope House Operator Helper Name Role Phone Luis Sandoval MD Primary Care Provider Allergies Active Allergy Reactions Criticality Noted Date Comments Shellfish Derived 11/01/2023 Medications acamprosate (CAMPRAL) 333 mg EC tablet Take 2 tablets (666 mg total) by mouth 3 (three) times a day. Active NIFEdipine CC (ADALAT CC) 60 mg 24 hr tablet TAKE 1 TABLET BY MOUTH DAILY 90 tablet 1 4 Active metoprolol succinate (TOPROL-XL) 200 mg 24 hr tablet TAKE 1 TABLET(200 MG) BY MOUTH 1 TIME EACH DAY 90 tablet 5 Active Vitamin B-1 100 mg tablet TAKE 1 TABLET BY MOUTH EVERY DAY 90 tablet 5 Active omeprazole (PriLOSEC) [address] capsule TAKE 1 CAPSULE BY MOUTH DAILY 90 capsule 1 5 Active folic acid (FOLVITE) 1 mg tablet TAKE 1 TABLET BY MOUTH DAILY 90 tablet 1 5 Active acetaminophen (Tylenol Extra Strength) 500 mg tablet Take 2 tablets (1,000 mg total) by mouth. 0 Active diclofenac (VOLTAREN) 1 % topical gel Apply 1 applicator topically. 4 Active lisinopriL (PRINIVIL,ZESTR IL) 10 mg tablet Take 1 tablet (10 mg total) by mouth 1 (one) time each day. Active atorvastatin (LIPITOR) 20 mg tablet Take 1 tablet (20 mg total) by mouth 1 (one) time each day. 90 tablet 1 5 Active cyclobenzaprine (FLEXERIL) 10 mg tabletIndicatio ns:Chronic midline low back pain without sciatica Take 1 tablet (10 mg total) by mouth at bedtime as needed for muscle spasms. 30 tablet 4 5 Active escitalopram (LEXAPRO) 10 mg tablet Take 1 tablet (10 mg total) by mouth 1 (one) time each day. 90 tablet 1 5 Active fenofibrate (TRICOR) 145 mg tablet Take 1 tablet (145 mg total) by mouth 1 (one) time each day. 90 tablet 1 5 Active gabapentin (NEURONTIN) 300 mg capsule Take 1 capsule (300 mg total) by mouth 2 (two) times a day. 180 each 1 5 Active albuterol HFA (PROAIR HFA ; PROVENTIL HFA ; VENTOLIN HFA) 90 mcg/actuation inhaler Inhale 2 puffs by mouth every 4 (four) hours if needed for wheezing. 6.7 g 3 5 Active fluticasone furoate-vilante roL (Breo Ellipta) 100-25 mcg/dose inhaler Inhale 1 puff by mouth 1 (one) time each day. 1 each 5 5 Active Active Problems Problem Noted Date Diagnosed Date Primary hypertension 10/18/2024 Hypertriglyceridemia 10/18/2024 Prediabetes 10/18/2024 Wolff's esophagus without dysplasia 10/18/2024 Chronic obstructive pulmonar y disease (CMS/HCC V24, CMS/HCC V28) 10/18/2024 Anxiety and depression 10/18/2024 Hemochromatosis 10/18/2024 Alcohol use disorder 10/18/2024 Lung nodule 07/26/2024 Stenosis, cervical spine 09/16/2018 Neck and shoulder pain 09/01/2018 Subacromial bursitis of right shoulder joint 12/2018 Encounters Date Type Department Care Team Description 12/11/2024 11:00 AM EDT Telemedicine Thoracic Surgery - [address] [address] Alanis Rob NP Lung nodule (Primary Dx) 11/21/2024 7:03 AM EDT - 11/21/2024 11:59 PM EDT Hospital Encounter [facility] CT Scan [address] [place] [id number] Lung nodule Discharge Disposition: Home or Self Care 10/30/2024 10:00 AM EDT Consult Gastroenterology - [place] [facility] [address] [facility] [address] [place] [address] Leana Joya NP Wolff's esophagus without dysplasia (Primary Dx); History of adenomatous polyp of colon; Tobacco use 10/30/2024 Telephone Gastroenterology - [place] [address] [facility] [address] [facility] [address] [place] [address] Leana Joya NP 10/18/2024 3:30 PM EDT Office Visit Adult Medicine [address] [phone] Luis Sandoval MD Primary hypertension (Primary Dx); Hypertriglyceridemia; Prediabetes; Wolff's esophagus without dysplasia; Chronic obstructive pulmonary disease, unspecified COPD type (CMS/HCC V24, CMS/HCC V28); Anxiety and depression; Alcohol use disorder; Hemochromatosis, unspecified hemochromatosis type; Chronic midline low back pain without sciatica; Screening for colorectal cancer; Screening for prostate cancer from Last 3 Months Surgical History Surgery Date Site/Laterality Comments LEG SURGERY PROCEDURE: HISTORICAL LEG SURGERY; COMMENT: ORIF Left Tibial Fx with hardware OTHER SURGICAL HISTORY PROCEDURE: LUMBAR SPINE FUSION, LAT TRANSVERSE ROTATOR CUFF REPAIR PROCEDURE: HISTORICAL ROTATOR CUFF REPAIR; COMMENT: BIlateral CARPAL TUNNEL RELEASE Right PROCEDURE: HI NEUROPLASTY &/TRANSPOS MEDIAN NRV CARPAL TUNNE SHOULDER SURGERY PROCEDURE:SHOULDER SURGERY BACK SURGERY PROCEDURE:BACK SURGERY HAND SURGERY PROCEDURE:HAND SURGERY Medical History Medical History Date Comments Alcoholism /alcohol abuse 02/15/2007 DX:Alc oholism /alcohol abuse; COMMENT: 02/09/07 Admitted to [facility] with alcoholic pancreatitis Depression 09/06/2018 DX:Depression 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 Hereditary hemochromatosis (CMS/HCC V24) 019 DX:Hereditary hemochromatosis (HCC) Hx of pancreatitis 08/01/2018 DX:Hx of panc reatitis Hypertension DX:Hypertension Tobacco use 08/01/2018 DX:Tobacco use Tremor 09/06/2018 DX:Tremor Hypertriglyceridemia 09/06/2018 DX:Hypertri glyceridemia Seizure ([facility] V24, [facility] V28) 03/14/2019 DX:Seizure ([facility]); COMMENT: Hospitalized 02/2019 COPD (chronic obstructive pu lmonary disease) ([facility] V24, [facility] V28) DX:COPD (chronic o bstructive pulmonary disease) ([facility]) Hypertension DX:Hypertension Family History Medical History Relation Name Comments Brain cancer Aunt Testicular cancer Brother Coronary artery disease Father Diabetes Father Brain cancer Maternal Grandfather Heart attack Mother fatal ate age 4 7 her 1st was 37 Heart disease Mother Hypertension Mother No Known Problems Sister Lung cancer Neg Hx Relation Name Status Comments Aunt Alive Brother Alive Father Maternal Grandfather Mother Sister Alive Social History Tobacco Use Types Packs/Day Years Used Date Smoking Tobacco: Every Day Cigarettes 1 49.4 Started: 08/01/1975 Smokeless Tobacco: Never Tobacco Cessation:Ready to Q uit: Not Asked; Counseling Given: Not Answered Alcohol Use Standard Drinks/Week Comments Yes 0 (1 standard drink = 0.6 oz pur e alcohol) Sex and Gender Information Value Date Recorded Sex Assigned at Male 07/07/2024 12:14 PM EST Legal Sex Male 7:00 PM EST Gender Identity Male 07/07/2024 12:14 PM EST Sexual Orientation Straight 07/07/2024 12 :14 PM EST Obstetrics History Last Filed Vital Signs Vital Sign Reading Time Taken Comments Blood Pressure 115/75 10/30/2024 10:06 AM EDT Pulse 100 10/30/2024 10:06 AM EDT Temperature 36.8 C (98.2 F) 10/18/2024 3:27 PM EDT Respiratory Rate 16 10/18/2024 3:27 PM EDT Oxygen Saturation 95% 10/30/2024 10:06 AM EDT Inhaled Oxygen Concentration - - Weight 87.1 kg (192 lb) 10/30/2024 10:06 AM EDT Height 170.2 cm (5' 7 ) 10/30/2024 10:06 AM EDT Body Mass Index 30.07 10/30/2024 10:06 AM EDT Plan of Treatment Health Maintenance Due Date Last Done Comments Hepatitis A Vaccines (1 of 2 - Risk 2-dose series) 01/14/1983 Pneumococcal Vaccine: 50+ Years (2 of 2 - PCV) 02/12/2008 02/11/2007 Pneumococcal Vaccine: Pediatrics (0 to 5 Years) and At-Risk Patients (6 to 49 Years) (2 of 2 - PCV) 02/12/2008 02/11/2007 Zoster Vaccines (1 of 2) 01/14/2014 Cholesterol Screening (Lipid Panel) 05/30/2022 Colorectal Cancer Screening: Colonoscopy 05/30/2022 Depression Screening 05/30/2022 HIV Screening 05/30/2022 Hepatitis C Screening 05/30/2022 Medicare Annual Wellness Visit 05/30/2022 Social Influencers of Health Screening 05/30/2022 Hypertension/CHF/CAD Annual BMP Blood Test 06/07/2022 RSV Immunization Adult Patients (1 - Risk 60-74 years 1-dose series) 2024 COVID-19 Vaccine (2 - season) 2024 10/07/2020 Influenza Vaccine (#1) 2025 3, 03/17/2021, 03/21/2020, Additional history exists Lung Cancer Screening (Low Dose CT) 03/22/2025 03/22/2024 DTaP,Tdap,and Td Vaccines (3 - Td or Tdap) 01/28/2027 01/28/2017, 06/28/1999 HIB Vaccines Aged Out No longer eligi ble based on patient's age to complete this topic HPV Vaccines Aged Out No longer eligi ble based on patient's age to complete this topic Hepatitis B Vaccines Aged Out No long er eligible based on patient's age to complete this topic IPV Vaccines Aged Out No longer eligi ble based on patient's age to complete this topic MMR Vaccines Aged Out No longer eligi ble based on patient's age to complete this topic Meningococcal ACWY Vaccine Aged Out N o longer eligible based on patient's age to complete this topic Meningococcal B Vaccine Aged Out No l onger eligible based on patient's age to complete this topic RSV Immunization Patients Under 20 months Aged Out No longer eligible based on patient's age to complete this topic Varicella Vaccines Aged Out No longer eligible based on patient's age to complete this topic Procedures Procedure Name Priority Date/Time Associated Diagnosis Comments CT CHEST WO CONTRAST (LUNG-RADS F/U) Routine 11/21/2024 7:35 AM EDT Lung nodule CT LUNG SCREENING LOW DOSE Routine 03/22/2024 9:08 AM EDT from Last 3 Months or Most Recently Relevant to Health Maintenance Results * CT Chest wo Contrast (Lung-RADS F/U) (11/21/2024 7:35 AM EDT) Anatomical Region Laterality Modality Body Computed Tomogra phy 11/21/2024 7:39 AM EDT Impressions 11/21/2024 7:54 AM EDT No suspicious change in a peripheral nodule in the posterior right lower lobe. No new suspicious abnormality. Recommend low-dose lung cancer screening CT in one year LUNG RADS: Lung-RADS 2: BENIGN S Modifier (Significant or Potentially Significant Findings): None present No suspicious nonpulmonary findings. RECOMMENDATIONS: 12 month screening low dose [address] -------- FINAL REPORT -------- Dictated By: Leonidas Latif Dictated Date: 11/21/2024 07:39 ET Assigned Physician: Leonidas Latif Reviewed and Electronically Signed By: Leonidas Latif Signed Date: 11/21/2024 07:54 ET Workstation ID: [id number] Transcribed By: Self Edit Transcribed Date: 11/21/2024 07:39 ET Narrative 11/21/2024 7:54 AM EDT EXAMINATION: CT CHEST WITHOUT CONTRAST CLINICAL INFORMATION: Right base lung nodule. Abnormal lung cancer screening CT. Evaluate for interval changes COMPARISON: Portions of previous 07/09/24, 03/20/24 TECHNIQUE: Multidetector CT. Examination of the chest. Examination of the chest without IV contrast. Reformatting in the coronal and sagittal planes. DLP: 173 mGy-cm Dose optimization was performed including the use of low-dose iterative reconstruction technique with automatic exposure control based on patient size. Type of contrast: None Volume of IV contrast: None Volume of contrast discarded: 0 mL FINDINGS: LUNG: No suspicious abnormalities the trachea or mainstem bronchi. There is some central airway wall thickening. LUNG NODULES: Slightly indistinct peripheral nodule posterior right lower lobe 11/21/24-0.5 cm 07/09/2024-0.5 cm 03/20/2024-mean diameter 0.7 cm No new suspicious nodule or mass. There are a few minor linear opacities. MEDIASTINUM: There is a stable circumscribed low density anterior mediastinal mass with average Hounsfield unit readings of -2. 5/-1.9 cm (4/39) 07/09/2024-2.0 cm (4/42) 03/20/2024-2.0 cm. CARDIAC: The heart is not enlarged. No pericardial fluid or thickening CORONARY CALCIFICATION: There are marked coronary calcifications. VASCULAR: There is no thoracic aortic aneurysm. The main pulmonary artery is normal caliber PLEURA: There is no pleural fluid or pneumothorax AXILLA/CHEST WALL: There are no enlarged axillary lymph nodes. No chest wall mass demonstrated VISUALIZED UPPER ABDOMEN: No suspicious abnormality on limited assessment of the visualized upper abdomen. Marked fatty change in the visualized portions of the liver MUSCULOSKELETAL: No suspicious focal bony lesion. There are multiple healing rib fractures. Alanis Rob NP IMG CT PROCEDURES Final Res ult * CT LUNG SCREENING LOW DOSE (03/22/2024 9:08 AM EDT) Anatomical Region Laterality Modality Computed Tomogra phy 03/20/2024 2:33 PM EDT Narrative 03/22/2024 9:[address] [facility] Diagnostic Imaging Department [address] [place], [place] [id number] Patient: JUNAIDJUSTICE./Age/Sex: 1965 - 59 - M Unit#: [id number] Location/Status: SPDICATLS/REG CLI Mnemonic/Ordering Site: [facility] Ordering Physician: NIKO ANDREW MD CT Lung Screening Low Dose - 03/20/24 - 1441 Report Status:Signed PROCEDURE: CT chest lung cancer screening low dose examination. INDICATION: CT lung screening. TECHNIQUE: Chest CT without intravenous contrast was performed. Low-dose examination was performed. Reformatted images were evaluated. DOSE: CTDIvol: 4.9mGy. Total exam DLP: 172.3mGy-cm COMPARISON: None. Baseline exam FINDINGS: NODULES: There is an 8 mm nodule in the periphery of the right lung base (series 3 image 180). No other significant nodularity noted. LUNGS: Minimal emphysematous changes. OTHER: Limited views of the upper abdomen appear normal. Coronary atherosclerotic disease. Minimal plaque in the aorta without aneurysm. No significant lymphadenopathy. Mild degenerative changes in the spine. IMPRESSION: There is a 8mm nodule at the posterior right lung base. Lung-RADS 4A. Follow up examination is advised in 3 months from this baseline exam. Dictating Physician: MORGAN HORNE MD Electronically Signed by: MORGAN HORNE MD Dic Date/Time: 03/22/24858 Sign date/Time: 03/22/24 0908 Procedure Note Morgan Horne MD - 04/12/2024 [facility] Diagnostic Imaging Department [address] [place] [address] Patient: JUSTICE COELLO Sisi Young/Age/Sex: 1965 - 59 - M Unit#: [id number] Location/Status: SPDICATLS/REG CLI Mnemonic/Ordering Site: [facility] Ordering Physician: NIKO ANDREW MD CT Lung Screening Low Dose - 03/20/24 - 1441 Report Status:Signed PROCEDURE: CT chest lung cancer screening low dose examination. INDICATION: CT lung screening. TECHNIQUE: Chest CT without intravenous contrast was performed.Low-dose examination was performed. Reformatted images were evaluated. DOSE: CTDIvol: 4.9mGy. Total exam DLP: 172.3mGy-cm COMPARISON: None. Baseline exam FINDINGS: NODULES: There is an 8 mm nodule in the periphery of the right lung base (series 3 image 180). No other significant nodularity noted. LUNGS: Minimal emphysematous changes. OTHER: Limited views of the upper abdomen appear normal. Coronary atherosclerotic disease. Minimal plaque in the aorta without aneurysm.No significant lymphadenopathy. Mild degenerative changes in the spine. IMPRESSION: There is a 8mm nodule at the posterior right lung base. Lung-RADS 4A. Follow up examination is advised in 3 months from thisbaseline exam. Dictating Physician: MORGAN HORNE MD Electronically Signed by: MORGAN HORNE MD Dic Date/Time: 03/22/2459 Sign date/Time: 03/22/24 0908 Niko Andrew MD IMG CT PROCEDURES Final Result from Last 3 Months or Most Recently Relevant to Health Maintenance Insurance [employer] MEDICARE Member Subscriber Plan / Payer (Ef fective 2018-Present) Name:JUSTICE COELLO Relation to Subscriber:Self Name:Justice Coello Payer ID:[id number] Group ID:[id number] Type:Not on file Address: [place] [address] [phone] Care Teams Dope House Operator Helper Relationship Specialty Start Date End Date Luis Sandoval MD [address] [place] [id number] PCP - General 06/14/23
--- OUTSIDE RECORDS SUMMARY | 2025-01-04 12:29 | XMS_ITS | Data Portability ---
Author Organization [place] [facility] Address [address] [place] [address] Care Team Providers Care Manager Animal Name Role Phone BROOKLYNN GANDHI Primary Care Provider Assessment Encounter Date Assessment Date Assessment LastModified by Organization Details LastModified Time 11/28/2024 11/28/2024 59-year-old man with ongoing debilitating back and radiating left leg pain over the last 2 years. No MRI. Had a lumbar laminotomy decompression here in 2017 which was quite effective. He had an MRI to rule out an ongoing compressive lesion. Will arrange and follow-up thereafter. Natural history reviewed and questions answered. [email or web address] Not available 11/28/2024 17:21:29 Plan of Treatment Reminders Order Date Submit Date Provider Last Modified By Organization Details Last Modified Time Details Appointments MUST SEE 15 2024 10:30A M Braden Conley MD Not available Not available Not available Lab None recorded. Referral None recorded. Procedures None recorded. Surgeries None recorded. Imaging XR, lumbar spine, 2 view - 320 lumbar 2v 2024 025 [facility], [address], [facility] [address], [place], [address], 12/01/2024 10:10:16 MRI, lumbar spine, w/o contrast - mri lumbar -eval for stenosis 2024 025 [facility] ([facility]), [address], [place], [address], 12/13/2024 16:06:36 Medication Orders None recorded. Patient TargetsNo targets recorded. Patient InstructionsNo instructions recorded. Reason for Referral None Reported. Results Created Date Observation Date Name Description Value Unit Range Abnormal Flag Note LastModifiedBy Organization Detail LastModifiedTime 11/29/19 25 11/28/2024 XR, lumba r spine , 2 view http:/ [email or web address] ?Encry pted=s hAaTro YD8dLq bEUv6g %2BXZw aYqtaq 0bqfl% 2Fg9IQ a4ajBk vP9nXo QUaueC m3YtLR FvZlgJ J8Ophiem HZtai3 0l5926 AC0Kla 3SEVaK mKiQtr MwF INTERFACE [facility] [address], [place], [address], 11/28/2024 15:10:47 11/29/19 25 11/28/2024 XR, lumba r spine , 2 view http:/ [email or web address] ?Encry pted=s hAaTro YD8dLq bEUv6g %2BXZw aYqtaq 0bqfl% 2Fg9IQ a4ajBk vP9nXo QUaueC m3YtLR FvZlgJ[facility]tai3 [id number] AC0Kla 3SEVaK mKiQtr MwF INTERFACE [facility] [address], [place], [address], 11/28/2024 15:10:48 12/14/19 25 12/12/2024 MRI, lumba r spine , w/o contr ast [facility] Access ion Number : [id number] Patito t Name: Thao Coello Medica l Record Number : [id number] Date of : 1964 Date of Exam: 2024 Referr ing Physic kirti: Braden Conley [address] [place] [address] Exam: MR Lumbar Spine (C-) CPT 74548 Room Descri ption: [facility] 3.0T MR Lumbar Spine (C-) CPT 64174 INDICA TION: Radicu lopath y, lumbar region mri lumbar -eval for stenos is Radicu lopath y, lumbar region mri lumbar -eval for stenos is TECHNI QUE: MRI of the lumbar spine was perfor med withou t intrav enous contra st utiliz ing sagitt al T1, sagitt al T2, sagitt al STIR, axial T1, and axial T2-bonifacio ghted sequen sage. COMPAR GEOFF: None. FINDIN GS: NUMBER ING: The study assume s 5 non-ri b-bear ing lumbar type verteb ral bodies . ALIGNM ENT, VERTEB JEFFRY, MARROW , AND DISCS: Alignm ent is normal . Verteb ral body height s are preser ashlyn. There are promin ent Modic type I signal change s at L2-L3 and L3-L4. There are Modic type II signal change s at L4-L5 and to a lesser extent at L2-L3 and L3-L4. Endpla te osteop hytes throug hout the lumbar spine. Diffus e disc desicc ation, with loss of interv ertebr al disc height which is most pronou nced at L3-L4 and L4-L5. Multip le small Schmor l's nodes. Multil evel facet arthro nerissa. CONUS: The conus is normal in signal and contou r, with normal level of termin ation at L1. PARASP INAL TISSUE S: There is atroph y of the piano regulator ior parasp inal muscul ature. DETAIL ED FINDIN GS BY LEVEL: L1-L2: Minima l disc bulge. Facet spurri ng. No signif icant canal stenos is. Mild bilate ral neural forami nal narrow ing. L2-L3: Diffus e disc bulge, ligame ntum flavum thicke marium, and facet arthro nerissa. No signif icant canal stenos is. Mild to modera te bilate ral neural forami nal narrow ing. L3-L4: Diffus e disc bulge, ligame ntum flavum thicke marium, and facet arthro nerissa. Mild spinal canal narrow ing. Modera te bilate ral neural forami nal narrow ing. L4-L5: Diffus e disc bulge, ligame ntum flavum thicke marium, and facet arthro nerissa. No signif icant canal stenos is. Mild left and severe right neural forami nal narrow ing with exitin g right L4 nerve root compre ssion. L5-S1: Diffus e disc bulge. Facet arthro nerissa. No signif icant canal stenos is. Severe left and mild to modera te right neural forami nal narrow ing with exitin g left L5 nerve root compre ssion. IMPRES CLAUDE: Degene rative change s of the lumbar spine as detail ed above. There is severe right neural forami nal narrow ing at L4-L5 and severe left neural forami nal narrow ing at L5-S1 with compre ssion of the exitin g nerve roots. Please correl ate for hanny cintron g distri bution sympto ms. Electr onical ly Signed By: Debbie severino [facility] ([facility]) [address], [place], [address], 12/14/2024 11:41:31 Result Notes Documentation Provider Name and Address Organization Details Recorded Time Xr, Lumbar Spine, 2 View : [email or web address]? Encrypted=irUiIpvNI6eIdlW Uv6g%5IAMdsUzbhs7zkgt%2Fg 9DGj5puWjaX7qXxVWnclKf7Jp GPQkIbcCYD5nDtQEswz59h547 8DK4Zjs3GTQvXyEvJeeEgN Not Available [facility] 11/28/2024 15:10:48 Xr, Lumbar Spine, 2 View : [email or web address] Encrypted=puFyGsrKC2nZaoV Uv6g%4TMWpdGlqgj9xmnh%2Fg 3SEv6yhKxsI0iAfDLocnLe4Sk FQKlMknJAI6nHiIXcgj31a909 4XY6Hwo4VTYtVrTrFzbIoT Not Available [facility] 11/28/2024 15:10:49 Mri, Lumbar Spine, W/o Contrast : [facility]: [id number] Patient Name: Justice Coello Date of : 1965 Date of Exam: 12-12-2024 Referring Physician: Braden Conley [address] [place] [address] Exam: MR Lumbar Spine (C-) CPT 02615 Room Description: [facility] 3.0T MR Lumbar Spine (C-) CPT 79924 INDICATION: Radiculopathy, lumbar region mri lumbar -eval for stenosis Radiculopathy, lumbar region mri lumbar -eval for stenosis TECHNIQUE: MRI of the lumbar spine was performed without intravenous contrast utilizing sagittal T1, sagittal T2, sagittal STIR, axial T1, and axial T2-weighted sequences. COMPARISON: None. FINDINGS: NUMBERING: The study assumes 5 ogt-lka-iblequo lumbar type vertebral bodies. ALIGNMENT, VERTEBRAE, MARROW, AND DISCS: Alignment is normal. Vertebral body heights are preserved. There are prominent Modic type I signal changes at L2-L3 and L3-L4. There are Modic type II signal changes at L4-L5 and to a lesser extent at L2-L3 and L3-L4. Endplate osteophytes throughout the lumbar spine. Diffuse disc desiccation, with loss of intervertebral disc height which is most pronounced at L3-L4 and L4-L5. Multiple small Schmorl's nodes. Multilevel facet arthropathy. CONUS: The conus is normal in signal and contour, with normal level of termination at L1. PARASPINAL TISSUES: There is atrophy of the posterior paraspinal musculature. DETAILED FINDINGS BY LEVEL: L1-L2: Minimal disc bulge. Facet spurring. No significant canal stenosis. Mild bilateral neural foraminal narrowing. L2-L3: Diffuse disc bulge, ligamentum flavum thickening, and facet arthropathy. No significant canal stenosis. Mild to moderate bilateral neural foraminal narrowing. L3-L4: Diffuse disc bulge, ligamentum flavum thickening, and facet arthropathy. Mild spinal canal narrowing. Moderate bilateral neural foraminal narrowing. L4-L5: Diffuse disc bulge, ligamentum flavum thickening, and facet arthropathy. No significant canal stenosis. Mild left and severe right neural foraminal narrowing with exiting right L4 nerve root compression. L5-S1: Diffuse disc bulge. Facet arthropathy. No significant canal stenosis. Severe left and mild to moderate right neural foraminal narrowing with exiting left L5 nerve root compression. IMPRESSION: Degenerative changes of the lumbar spine as detailed above. There is severe right neural foraminal narrowing at L4-L5 and severe left neural foraminal narrowing at L5-S1 with compression of the exiting nerve roots. Please correlate for corresponding distribution symptoms. Electronically Signed By: Debbie yu [facility] 12/14/2024 11:41:31 Problems Name Problem SNOMED Code Status Onset Date Resolution Date Notes Provider Name and Address Organization Details Recorded Time No complaints 384671710 Active Status: 'I'; Not Available [facility] 4 09:25:26 Lumbar radiculopat 422027494 Active 2024 Juju Munozburn, POLITICAL WORKER [address], [place], [address] , [facility] [place] 5 16:11:08 Full thickness rotator cuff tear 132444134 Active 2016 Problem Code: M75.121; Problem Code Type: ICD-10; Status: 'A'; Not Available [facility] 4 11:59:23 Problem Notes None recorded. Medical Equipment None Reported. Allergies No known drug allergies Medications Name Sig Start Date Stop Date Status Note LastModified by Organization Details LastModified Time cyclobenzap rine 10 mg tablet TAKE 1 TABLET BY MOUTH THREE TIMES DAILY active Not Available Not Available No t Available atorvastati n 20 mg tablet TAKE 1 TABLET BY MOUTH DAILY active Not Available Not Available No t Available tizanidine 4 mg tablet TAKE 1 TABLET BY MOUTH THREE TIMES DAILY active Not Available Not Available No t Available meloxicam 15 mg tablet TAKE 1 TABLET BY MOUTH DAILY NEEDED FOR PAIN active Not Available Not Available No t Available metoprolol succinate ER 200 mg tablet,exte nded release 24 hr TAKE 1 TABLET BY MOUTH DAILY active Not Available Not Available No t Available prednisone 20 mg tablet TAKE 3 TABLETS BY MOUTH DAILY FOR 3 DAYS THEN TAKE 2 TABLETS BY MOUTH DAILY FOR 3 DAYS THEN TAKE 1 TABLET BY MOUTH DAILY FOR 3 DAYS active Not Available Not Available No t Available amlodipine 5 mg tablet TAKE 1 AND 1/2 TABLETS BY MOUTH DAILY active Not Available Not Available No t Available oxycodone-a cetaminophe n 5 mg-325 mg tablet TAKE 1 TABLET BY MOUTH FOUR TIMES DAILY FOR 7 DAYS active Not Available Not Available No t Available pseudoephed rine-guaife nesin ER 80-700 mg tablet,exte nded release 1 po qid prn paIN 2013 active Statu s: 'Curr ent'; Not Available Not Available Not Available lisinopril 10 mg tablet TAKE 1 TABLET BY MOUTH DAILY active Not Available Not Available No t Available oxycodone 5 mg capsule TAKE 1 CAPSULE BY MOUTH EVERY 8 HOURS FOR 3 DAYS NEEDED FOR PAIN active Not Available Not Available No t Available gabapentin 300 mg capsule TAKE 1 CAPSULE BY MOUTH TWICE DAILY NEEDED FOR PAIN active Not Available Not Available No t Available omeprazole 20 mg capsule,del ayed release TAKE 1 CAPSULE BY MOUTH DAILY active Not Available Not Available No t Available folic acid 1 mg tablet TAKE 1 TABLET BY MOUTH DAILY active Not Available Not Available No t Available albuterol sulfate HFA 90 mcg/actuati on aerosol inhaler INHALE 2 PUFFS BY MOUTH EVERY 4 HOURS IF NEEDED FOR WHEEZING active Not Available Not Available No t Available Vitamin B-1 100 mg tablet TAKE 1 TABLET BY MOUTH EVERY DAY active Not Available Not Available No t Available nifedipine ER 60 mg tablet,exte nded release TAKE 1 TABLET BY MOUTH DAILY active Not Available Not Available No t Available naproxen 500 mg tablet TAKE 1 TABLET BY MOUTH TWICE DAILY active Not Available Not Available No t Available escitalopra m 10 mg tablet TAKE 1 TABLET BY MOUTH DAILY active Not Available Not Available No t Available acamprosate 333 mg tablet,ángel yed release TAKE 2 TABLETS BY MOUTH THREE TIMES DAILY active Not Available Not Available No t Available fenofibrate nanocrystal lized 145 mg tablet TAKE 1 TABLET BY MOUTH DAILY active Not Available Not Available No t Available diclofenac 1 % topical gel APPLY TOPICALLY TWICE DAILY NEEDED FOR LOWER BACK PAIN active Not Available Not Available No t Available oxycodone HCl-oxycodo ne-ASA as directed 1-2TAB Q4-6H PRN PAIN 07/29 completed Statu s: 'Disc ontin ued'; Not Available Not Available Not Available Vitals Date Recorded Body height Body mass index (BMI) Body weight Provider Name and Address Organization Details Last Updated DateTime 12/26/2024 170.18 cm 29.8 kg/m2 75589.55 g CHRISTOPHER FORD [place] - [facility] 12/26/2024 10:11:19 Social History None recorded. Functional Status None recorded. Mental Status None recorded. Family History Nothing Reported. Medical History No medical history recorded. Past Encounters Encounter ID Performer Location Encounter Start Date Encounter Closed Date Diagnosis/Indication Diagnosis SNOMED-CT Code Diagnosis ICD10 Code Diagnosis Note [id number] MD JAEL William [place] [address] [place] [address] 11/28/2024 14:07:35 12/01/2024 10:10:16 Lumbar radiculopathy 412077042 M54.16 [id number] Juju Holguin, THADDE[place] [address] [place] [address] 12/26/2024 09:52:43 12/26/2024 16:11:20 Lumbar radiculopathy 709732037 M54.16 Health Concerns Section Related Observation LastModified by Organization Detai ls LastModified Time None Recorded Concern Status LastModified by Organization Details LastModified Time None Recorded Advance Directives Directive None Recorded Payers Insurance Date Sequence Insurance Name Policy Number Policy Gale Covered Member ID Gale Member ID Guarantor Name 12/26/2024 1 [facility] - DOS ON OR AFTER 2022 - ONE CARE (MEDICARE REPLACEMENT/ADV ANTAGE - HMO) Justice Coello [id number] Justice Coello 02/10/2024 1 [facility]: HMO [facility] (O) Justice Coello [id number] Justice Coello Notes Date Note Type Note Provider Name and Address Organization Details Recorded Time 11/28/2024 text/html HPI: 59-year-old male with ongoing back and radiating left leg pain over the last 2 years time. Gradual in onset. No clear etiology. Aching in quality. Reports his pain is 8 out of 10. Mechanical in nature. Awakens him at night. No bowel or bladder complaints described. PFMSH and ROS has been reviewed, updated and is located in the patient's chart. TREATMENT: Physical therapy ineffective. Had some injection management as well ineffective. 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 Braden Conley MD [address], [place], [address], [place] [facility] 11/28/2024 17:21:45 12/26/2024 text/html I am seeing the patient under the general supervision of Dr. Holland who was available but who did not see the patient. HPI: 59-year-old male with ongoing back and radiating left leg pain over the last 2 years time. Gradual in onset. No clear etiology. Aching in quality. Reports his pain is 8 out of 10. Mechanical in nature. Awakens him at night. No bowel or bladder complaints described. Had a lumbar laminotomy decompression here in 2017 which was quite effective. He reports JUSTIN injections x3 at [facility] within the last year with no help. Returns today for MRI review. He was supposed to see Dr. Conley, he's not sure why that appt was cancelled and he's seeing me instead. RADICULITIS: LLE lateral thigh PFMSH and ROS have been reviewed, updated, and it is located in the patient's chart. 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 Able to balance on heels and tip toes.--- Posture - neutralTenderness:- -- Spinous processes - none--- Paraspinal musculature - noneROM:--- Lumbar spine: 70% normalLower extremity strength:--- LLE 5/5--- RLE 5/5Neurologic:--- Positive sensation to light moving touch IMAGING:- MRI lumbar spine dated 12/12/2024 independently reviewed today shows diffuse degenerative changes varying from mild to severe. Multiple levels with diffuse disc bulges. L4-L5 disc bulge severe right foraminal stenosis compressing exiting right L4 nerve root. L5-S1 disc bulge causing severe left foraminal stenosis compression left exiting L5 nerve root. IMPRESSION: Lumbar radiculopathy LLE with findings on the left side at L5-S1. PLAN: Findings discussed with the patient today. L4-L5 has findings on the right. He has no right leg symptoms. L5-S1 findings on the left which coincides with what he describes.- Given that he has already tried multiple injections, Refer back to Dr. Conley to discuss surgical indications. FOLLOW UP: surgical consult with Dr Conley Speech recognition loss prevention lead software was used to create portions of this document. An attempt at proofreading has been made to minimize errors. Please call for corrections. Juju Holguin, POLITICAL WORKER [address], [place], [address], [facility] - [facility] 12/26/2024 16:11:19
[2025-01-04 13:44] LABS: Appearance Urine Clear; Glucose Urine UA Negative (Negative); PH 6.0 (5.0-9.0); Specific Gravity - Urine <= 1.005 (1.005-1.025)
[2025-01-04 13:53] LABS: Cannabinoid Screen Urine POSITIVE (Not Detect)
--- NOTE | 2025-01-04 13:58 | ED.GENADULT ---
HPI - General Adult General Chief complaint: Fall Stated complaint: r hip pain Time Seen by Provider: 01/04/25 12:40 Source: patient, RN notes reviewed and old records reviewed Mode of arrival: ambulatory Limitations: no limitations History of Present Illness ED Provider: Reynaldo FUENTES narrative: 59-year-old male past medical history significant for hypertension, alcohol abuse presents for evaluation of right hip pain. Patient reports that he was drinking with his brother last weekend, 5 days ago. He fell onto his right side. He reports that he did not have any significant pain initially He had some scrapes to his knees in his right elbow He reports yesterday his pain became substantially worse to the point where he can no longer stand to bear weight or walk His pain is 7/10 The patient also notes that you drinks alcohol in excess. He drinks approximately 12 beers per day His last drink was this morning He is interested in detox Denies any headache, neck pain, chest pain or abdominal pain Related Data Home Medications ?Medication ?Instructions ?Recorded ?Confirmed albuterol sulfate 90 mcg/actuation inhalation 04/17/24 04/17/24 aerosol inhaler amlodipine 5 mg tablet mg PO 04/17/24 04/17/24 atorvastatin 20 mg tablet 20 mg PO DAILY 04/17/24 04/17/24 cyclobenzaprine 10 mg tablet 10 mg PO BID PRN 04/17/24 04/17/24 escitalopram oxalate 10 mg tablet 10 mg PO DAILY 04/17/24 04/17/24 folic acid 1 mg tablet 1 mg PO DAILY 04/17/24 04/17/24 gabapentin 300 mg capsule mg PO 04/17/24 04/17/24 lisinopril 10 mg tablet 10 mg PO DAILY 04/17/24 04/17/24 meloxicam 15 mg tablet 15 mg PO DAILY 04/17/24 04/17/24 metoprolol succinate 200 mg 200 mg PO DAILY 04/17/24 04/17/24 tablet,extended release 24 hr nifedipine 60 mg tablet,extended 60 mg PO DAILY 04/17/24 04/17/24 release omeprazole 20 mg capsule,delayed 20 mg PO DAILY 04/17/24 04/17/24 release thiamine HCl (vitamin B1) 100 mg 100 mg PO DAILY 04/17/24 04/17/24 tablet (Vitamin B-1) Previous Rx's ?Medication ?Instructions ?Recorded lidocaine 5 % topical patch 1 patch topical DAILY #15 ea 12/09/23 naproxen 500 mg tablet 500 mg PO BID #14 tabs 12/09/23 Allergies Allergy/AdvReac Type Severity Reaction Status Date / Time shellfish derived Allergy Itching Verified 01/04/25 10:20 Review of Systems Constitutional: Constitutional: Denies body ache(s), Denies chills, Denies fever(s) and Denies headache(s) Eyes: Eyes: Denies blurry vision ENT: Denies dizziness and Denies headache(s) Cardiovascular: Cardiovascular: Denies chest pain and Denies dyspnea on exertion Respiratory: Respiratory: Denies cough and Denies dyspnea on exertion Gastrointestinal: Gastrointestinal: Denies abdominal pain, Denies nausea and Denies vomiting Musculoskeletal: Musculoskeletal: Reports arthralgias, Denies joint swelling and Reports limited range of motion Integumentary/Breasts: Skin/Breast: Denies rash Neurologic: Denies dizziness and Denies headache(s) Psychiatric: Psychiatric: Denies anxiety PMFSH Past Medical History Medical History (Updated 01/04/25 @ 14:43 by Momo Jacobs) Torn rotator cuff Sciatic nerve disease HTN (hypertension) Surgical History (Updated 04/17/24 @ 09:48 by Jose Miguel Rene MD) Previous back surgery Social History Social History (Updated 04/17/24 @ 09:42 by HOLLEY Alarcon) Alcohol intake: current Alcohol intake frequency: 3 or more drinks per day Alcohol type: beer Cigarettes Per Day: 10 Substance Use Type: Marijuana Advance Directives: No Advance Directives Information Provided: Yes Physical Exam ED Vital Signs: Vital Signs - 24 hr 01/04/25 10:15 Temperature 96.8 F Pulse Rate 72 Respiratory Rate 18 Blood Pressure 104/59 L Pulse Oximetry 92 Oxygen Delivery Method Room Air BMI result Body Mass Index 30.2 Const General: healthy appearing, comfortable, no acute distress, alert and awake Nutritional Appearance: well nourished Orientation/consciousness: patient oriented x3 HENMT Head: Yes normocephalic and Yes atraumatic Eyes Eyelids: Yes eyelids normal Conjunctivae: conjunctivae normal Sclerae: sclerae normal Corneas: corneas normal Pupils: Equal, round and reactive pupils present EOM: EOMs intact bilaterally Neck Neck: Yes full ROM Resp Effort & Inspection: normal respiratory effort, able to speak in complete sentences and not labored Cardio Rate: regular rate Rhythm: regular rhythm GI Inspection: No distended Palpation (GI): Soft to palpation, not firm, nontender, no guarding and not rigid Back/Spine/Pelvis Other: Exquisite tenderness to the right hip without deformity. The patient has full passive range of motion to the right hip. There is limited active range of motion to the right hip. No calf tenderness, no right knee tenderness on exam. Full range of motion with flexion-extension of the right knee.. Skin General skin exam: elasticity normal Neuro General: patient oriented x3 Cranial nerves: Yes Equal, round and reactive pupils present and Yes Bilaterally intact EOM present Cognition (Neuro): normal cognition Course Reevaluation(s) Reevaluation #1: Patient met with the recovery team and felt he would prefer to self present to [facility] tomorrow. He has been in a [place] in the past in his brother we will be able to bring him in the morning. CT scan of the hip shows no occult fractures but does show calcific tendonitis and bursitis. Time: 14:41 Medical Decision Making Medical Decision Making MDM Narrative: 59-year-old male past medical history as above presents for evaluation of right hip pain. He does have some tenderness to the right hip, x-ray shows calcific tendonitis/bursitis which is likely the cause of his pain. However he reports he is unable to stand or walk due to the pain. With the assistance and was able to stand the patient up to bear weight but he is unable to take any steps. We will get a CT scan of the pelvis to evaluate for occult fracture. There was no evidence of trauma to the head or neck. His follows about 5 days ago, I do not see any indication for emergent imaging of the head or C-spine given that he has no pain or neurologic symptoms. His labs show no significant hematology findings, his electrolytes are within normal limits. The patient has a random glucose of 117 but he is not a diabetic, no evidence of DKA. He has a slight elevation of total bilirubin, AST and ALT which is likely related to alcoholic liver disease. He has no abdominal pain, no abdominal tenderness on exam, less likely obstructive biliary disease. He is interested in speaking to the recovery team regarding detox Differential Diagnosis Differential Diagnoses: The differential diagnosis associated with the presentation includes Right hip pain Calcific bursitis Tendonitis Occult pelvic fracture Hip fracture less likely Alcohol abuse Admission/Observation Consideration of admission/observation: Escalation of care including admission/observation considered Lab Data MDM Lab Attestation statement: I reviewed the patient's lab results. As above 01/04/25 11:14 01/04/25 11:14 Labs: Lab Results 01/04/25 01/04/25 Range/Units 11:14 13:37 WBC 8.7 (4.8-10.8) X10*3/uL RBC 4.58 L (4.60-5.80) X10*6/uL Hgb 15.8 (14.0-18.0) g/dl Hct 44.0 (42.0-52.0) % MCV 96.1 (80.0-98.0) fL MCH 34.5 H (27.0-33.0) pg MCHC 35.9 (31.0-36.0) g/dl RDW 13.5 (11.0-16.0) % Plt Count 175 D (160-400) X10*3/uL MPV 9.8 (9.4-12.4) fL Immature Gran % (Auto) 0.3 (0.0-0.4) % Neut % (Auto) 65.4 (45-73) % Lymph % (Auto) 19.5 L (20-40) % Gillespie % (Auto) 12.8 H (2-11) % Eos % (Auto) 1.0 (0-4) % Baso % (Auto) 1.0 (0-2) % Lymph # (Auto) 1.7 (1.2-4.9) X10*3/uL Gillespie # (Auto) 1.1 (0.1-1.2) X10*3/uL Eos # (Auto) 0.1 (0.0-0.4) X10*3/uL Baso # (Auto) 0.1 (0.0-0.2) X10*3/uL Abs Immat Gran (auto) 0.03 (0.00-0.03) X10*3/uL Absolute Neuts (auto) 5.7 (2.0-8.3) x10*3/uL Absolute Nucleated RBC 0.000 (0.0-0.012) X10*3/uL Nucleated RBC % (auto) 0.0 (0.0-0.2) /100WBC Sodium 135 (135-145) mmol/L Potassium 3.3 D (3.3-5.1) mmol/L Chloride 98 (96-108) mmol/L Carbon Dioxide 28 (22-29) mmol/L Anion Gap 12 (12-20) BUN 3 L (9-16) mg/dL Creatinine 0.72 (0.5-1.4) mg/dL Estim Creat Clear Calc 115.2 Estimated GFR > 60 Random Glucose 117 H (60-115) mg/dL Calcium 8.3 L D (8.4-10.2) mg/dL Total Bilirubin 1.1 H (0.0-1.0) mg/dL AST 81 H (5-37) U/L ALT 42 H (0-40) U/L Alkaline Phosphatase 94 (39-117) U/L Total Protein 6.4 L (6.5-8.0) g/dL Albumin 3.6 (3.5-5.0) g/dL Urine Color Yellow Urine Appearance Clear Urine pH 6.0 (5.0-9.0) Ur Specific Cash <= 1.005 (1.005-1.025) Urine Protein Negative (Neg-Trace) mg/dL Urine Glucose (UA) Negative (Negative) mg/dL Urine Ketones Negative (Negative) mg/dL Urine Blood Negative (Negative) Urine Nitrite Negative (Negative) Ur Leukocyte Esterase Negative (Negative) Urine RBC 0-2 (0-2) /HPF Urine WBC 0-5 (0-5) /HPF Ur Squamous Epith Cells 0-2 (0-2) /HPF Urine Bacteria None Seen (None Seen) Hyaline Casts 0-2 (0-2) /LPF Urine Opiates Screen Not Detected (Not Detect) Ur Buprenorphine Scrn Not Detected (Not Detect) ng/mL Ur Oxycodone Screen Not Detected (Not Detect) ng/mL Urine Methadone Screen Not Detected (Not Detect) ng/mL Urine Fentanyl Screen Not Detected (Not Detect) Ur Barbiturates Screen Not Detected (Not Detect) Ur Phencyclidine Scrn Not Detected (Not Detect) Ur Amphetamines Screen Not Detected (Not Detect) U Benzodiazepines Scrn Not Detected (Not Detect) Urine Cocaine Screen Not Detected (Not Detect) U Marijuana (THC) Screen POSITIVE H (Not Detect) Ethyl Alcohol 130 mg/dL Radiology Impression Discussion of test interpretation with radiology: I have reviewed the radiologist's reading. Radiologist Impression: FINDINGS: No fracture, dislocation, or suspicious bone lesion. The pelvis is intact. 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 Degenerative changes present in the lower lumbar spine. Normal femoral head contour is without evidence of AVN. There is amorphous calcification at the right greater trochanter, in keeping with calcific bursitis or tendinitis. Soft tissues demonstrate diffuse vascular calcification. XR/XR hip RT w PEL1V IMPRESSION: 1. No acute bony abnormalities of the pelvis or right hip. 2. Mild degenerative changes bilateral hip joints and bilateral SI joints. 3. Calcific bursitis and/or tendinitis of the right greater trochanter. Electronically signed by: Guy Dillard MD 01/04/2025 10:41 AM EDT RP Discharge Plan Discharge Clinical Impression: Acute pain of right hip, Calcific tendinitis, Alcohol abuse Patient Disposition: Home, Self-Care Instructions: Abuse of Alcohol (ED), Tendinitis (ED) Additional Instructions: Your blood work today was reassuring. Your liver enzymes were slightly elevated which is likely due to excessive alcohol use. You may self present to [facility] for detox tomorrow morning at 8:00 a.m. The x-ray of your hip showed calcific tendinitis and the CT scan showed the same. There was no fracture of your hip or pelvis Follow-up with your primary doctor, return for new or worsening symptoms. You may use ibuprofen or Tylenol as needed for pain Prescriptions: No Action lidocaine 5 % adhesive patch,medicated 1 patch topical DAILY Qty: 15 0RF Rx Instructions: leave on most painful area for up to 12 hrs naproxen 500 mg tablet 500 mg PO BID Qty: 14 0RF albuterol sulfate 90 mcg/actuation HFA aerosol inhaler inhalation gabapentin 300 mg capsule PO escitalopram oxalate 10 mg tablet 10 mg PO DAILY metoprolol succinate 200 mg tablet extended release 24 hr 200 mg PO DAILY nifedipine 60 mg tablet extended release 60 mg PO DAILY cyclobenzaprine 10 mg tablet 10 mg PO BID PRN lisinopril 10 mg tablet 10 mg PO DAILY thiamine HCl (vitamin B1) [Vitamin B-1] 100 mg tablet 100 mg PO DAILY folic acid 1 mg tablet 1 mg PO DAILY omeprazole 20 mg capsule,delayed release(DR/EC) 20 mg PO DAILY amlodipine 5 mg tablet PO meloxicam 15 mg tablet 15 mg PO DAILY atorvastatin 20 mg tablet 20 mg PO DAILY Print Language: Dutch
[2025-01-04 15:14] VITALS: BP 165/92; PULSE 75; RESP 16; TEMP 36.9; O2SAT 96
== END 2025-01-04 15:17 | disposition home or self-care (01) ==
PROVIDERS: Physician Assistant; Emergency Provider Emergency Medicine; PCP Internal Medicine
DX: F10.10 Alcohol abuse, uncomplicated (principal); Y90.6 Blood alcohol level of 120-199 mg/100 ml; M25.551 Pain in right hip; M65.28 Calcific tendinitis, other site; Z79.899 Other long term (current) drug therapy
CPT/HCPCS: 36415; 72192; 73502; 80053; 80307; 81001; 85025; 99284; S9485

== ENCOUNTER 2025-01-09 08:01 | Inpatient (IN) | payer OTHER, SELFPAY ==
[2025-01-09] VITALS (12 sets, daily range): BP systolic 129–206; BP diastolic 62–99; PULSE 68–98; RESP 13–26; TEMP 36.3–37.3; O2SAT 92–99; BMI 29.8; BMI 28.7
--- OUTSIDE RECORDS SUMMARY | 2025-01-09 08:47 | XMS_ITS | Data Portability ---
Author Organization [place] [facility] Address [address] [place] [address] Care Team Providers Care Manager Electrical Name Role Phone BROOKLYNN GANDHI Primary Care [...] [address] [facility], [address], [facility] [address], [place], [address], 12/01/2024 10:10:16 MRI, lumbar spine, w/o contrast - mri lumbar -eval for stenosis 2024 025 [facility] ([facility] [address], [place], [address], 12/13/2024 16:06:36 Medication Orders None recorded. Patient TargetsNo targets recorded. Patient InstructionsNo instructions recorded. Reason for Referral None Reported. Results Created Date Observation Date Name Description Value Unit Range Abnormal Flag Note LastModifiedBy Organization Detail LastModifiedTime 11/29/19 25 11/28/2024 XR, lumba r spine , 2 view http:/ [email or web address] ?Encry pted=s hAaTro YD8dLq bEUv6g %2BXZw aYqtaq 0bqfl% 2Fg9IQ a4ajBk vP9nXo QUaueC m3YtLR FvZlgJ J8[place] HZtai3 8t1924 AC0Kla 3SEVaK mKiQtr MwF INTERFACE [facility] [address], [place], [address], 11/28/2024 15:10:47 11/29/19 25 11/28/2024 XR, lumba r spine , 2 view http:/ [email or web address] ?Encry pted=s hAaTro YD8dLq bEUv6g %2BXZw aYqtaq 0bqfl% 2Fg9IQ a4ajBk vP9nXo QUaueC m3YtLR FvZlgJOE [facility] Hospitaltai[facility] 1w9322 AC0Kla 3SEVaK mKiQtr MwF INTERFACE [facility] [address], [place], [address], 11/28/2024 15:10:48 12/14/19 25 12/12/2024 MRI, lumba r spine , w/o contr ast [facility] Access ion Number : [id number] Patito t Name: Thao Coello Medica l Record Number : [id number] Date of : 1964 Date of Exam: 2024 Referr ing Physic kirti: Braden Conley [address] [place] [address] Exam: MR Lumbar Spine (C-) CPT 79696 Room Descri ption: [facility] 3.0T MR Lumbar Spine (C-) CPT 98536 INDICA TION: Radicu lopath y, lumbar region [...] S: There is atroph y of the pricing associate ior parasp inal muscul ature. DETAIL ED [...] Electr onical ly Signed By: Debbie severino [facility] ([facility]) [address], [place], [address], 12/14/2024 11:41:31 Result Notes Documentation Provider Name and Address Organization Details Recorded Time Xr, Lumbar Spine, 2 View : [email or web address]? Encrypted=fhUzYhyPI9nOjpF Uv6g%2JQPbpOuzxh7pbww%2Fg 1HRn5nyOhxL6bNwAVymkIq9By OWZwRwyFNA5tRdHNlby28i898 7OL9Mdn6QCGkRgOkTwjHqQ Not Available [facility] 11/28/2024 15:10:48 Xr, Lumbar Spine, 2 View : [email or web address] Encrypted=odLhTnbNB8tJysU Uv6g%2FDVpoOifsn0xebo%2Fg 2GSd2xzHzfG8uOjBTyjeYl6Kz TQEuSvjFRJ0dUiBGlfc00n865 4KD7Wnn0UIWyGcIvSqsKjR Not Available [facility] 11/28/2024 15:10:49 Mri, Lumbar Spine, W/o Contrast : [facility] Accession Number: [id number] Patient Name: Justice Coello Date of : 1965 Date of Exam: 12-12-2024 Referring Physician: Braden Conley [address] [place] [address] Exam: MR Lumbar Spine (C-) CPT 37863 Room Description: [facility] 3.0T MR Lumbar Spine (C-) CPT 11203 INDICATION: Radiculopathy, lumbar region mri lumbar -eval for stenosis Radiculopathy, lumbar region mri lumbar -eval for stenosis TECHNIQUE: MRI of the lumbar spine was performed without intravenous contrast utilizing sagittal T1, sagittal T2, sagittal STIR, axial T1, and axial T2-weighted sequences. COMPARISON: None. FINDINGS: NUMBERING: The study assumes 5 yqk-odu-zqguulk lumbar type vertebral bodies. ALIGNMENT, VERTEBRAE, MARROW, [...] distribution symptoms. Electronically Signed By: Debbie yu [facility] 12/14/2024 11:41:31 Problems Name Problem SNOMED Code Status Onset Date Resolution Date Notes Provider Name and Address Organization Details Recorded Time No complaints 706902987 Active Status: 'I'; Not Available [facility] 4 09:25:26 Lumbar radiculopat 081662367 Active 2024 Juju Munozburn, ROLL FORGER [address] [facility] [address], [place], [address] , [facility] [place] [facility] 5 16:11:08 Full thickness rotator cuff tear 413493512 Active 2016 Problem Code: M75.121; Problem Code Type: ICD-10; Status: 'A'; Not Available [facility] 4 11:59:23 Problem Notes None recorded. Medical [...] Updated DateTime 12/26/2024 170.18 cm 29.8 kg/m2 85061.55 g CHRISTOPHER FORD [place] - [place] [facility] 12/26/2024 10:11:19 Social History None recorded. Functional Status None recorded. Mental Status None recorded. Family History Nothing Reported. Medical History No medical history recorded. Past Encounters Encounter ID Performer Location Encounter Start Date Encounter Closed Date Diagnosis/Indication Diagnosis SNOMED-CT Code Diagnosis ICD10 Code Diagnosis Note [id number] MD JAEL William - [place] [address] [place] [address] 11/28/2024 14:07:35 12/01/2024 10:10:16 Lumbar radiculopathy 737322710 M54.16 [id number] Juju Holguin, THADDEUS P[place] [address] [place] [address] 12/26/2024 09:52:43 01/05/2025 14:20:12 Lumbar radiculopathy 339954225 M54.16 Health Concerns Section Related Observation LastModified by Organization Detai ls LastModified Time None Recorded Concern Status LastModified by Organization Details LastModified Time None Recorded Advance Directives Directive None Recorded Payers Insurance Date Sequence Insurance Name Policy Number Policy Gale Covered Member ID Gale Member ID Guarantor Name 01/05/2025 1 [facility] - DOS ON OR AFTER 2022 - ONE CARE (MEDICARE REPLACEMENT/ADV ANTAGE - HMO) Justice Coello [id number] Justice Coello 02/10/2024 1 [facility]: HMO [facility] (O) Justice Coello [id number] Justice Coello Notes Date Note Type Note [...] some injection management as well ineffective. 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 Braden Conley MD [address], [place], [address], [place] [facility] [place] [facility] 11/28/2024 17:21:45 12/26/2024 text/html [...] effective. He reports JUSTIN injections x3 at [facility] within the last year with no help. Returns today for MRI review. He was supposed to see Dr. Conley, he's not sure why that appt was cancelled and he's seeing me instead. RADICULITIS: LLE lateral thigh PFMSH and ROS have been reviewed, updated, and it is located in the patient's chart. PRIOR TREATMENTS/MEDICATI ONS: JUSTIN (no help) WORK STATUS: [employer] EXAM: examination of the lumbar spineTransitions: Patient [...] surgical consult with Dr Conley Speech recognition glue mill operator software was used to create portions of this document. An attempt at proofreading has been made to minimize errors. Please call for corrections. Juju Holguin, ROLL FORGER [address] [facility] [address], [place], [address], [facility] - [place] [facility] 12/26/2024 16:11:19
--- OUTSIDE RECORDS SUMMARY | 2025-01-09 08:47 | XMS_ITS | Clinical Summary ---
Author Organization [facility] Address [address] [place] [address] Care Team Providers Care Assembler Musical Equipment Name Role Phone Luis Sandoval MD Primary Care Provider [phone] Allergies Active Allergy Reactions Criticality Noted Date [...] different from the original. Therapeutic Phlebotomy - [facility] Problem Noted Date Diagnosed Date Stenosis, cervical [...] age to complete this topic Care Teams Assembler Musical Equipment Relationship Specialty Start Date End Date Luis Sandoval MD [address] [place] [address] [id number] PCP - General Primary Care 06/14/23
[2025-01-09 08:50] LABS: MANUAL DIFF FLAG NO
--- NOTE | 2025-01-09 08:50 | MHC.EDTECH ---
vitals at 835 is not accurate on this pt!!
[2025-01-09 08:54] LABS: Hematocrit 43.2 % (42.0-52.0); Hemoglobin 15.8 g/dl (14.0-18.0); Imm Gran Abs Auto 0.02 X10*3/uL (0.00-0.03); Imm Gran Pct Auto 0.3 % (0.0-0.4); Lymphocytes Absolute Auto 0.9 X10*3/uL (1.2-4.9); Mean Corpuscular HGB Conc 36.6 g/dl (31.0-36.0); Mean Corpuscular Hemoglobin 34.4 pg (27.0-33.0); Mean Corpuscular Volume 94.1 fL (80.0-98.0); NRBC Abs Auto 0.000 X10*3/uL (0.0-0.012); NRBC Pct Auto 0.0 /100WBC (0.0-0.2); Platelet Count 241 X10*3/uL (160-400); Red Blood Count 4.59 X10*6/uL (4.60-5.80); White Blood Count 6.3 X10*3/uL (4.8-10.8)
--- NOTE | 2025-01-09 08:55 | ECG_ITS ---
Test Reason : ETOH Blood Pressure : */* mmHG Vent. Rate : 68 BPM Atrial Rate : 68 BPM P-R Int : 148 ms QRS Dur : 76 ms QT Int : 476 ms P-R-T Axes : 59 -32 47 degrees QTcB Int : 506 ms Normal sinus rhythm Left axis deviation Cannot rule out Anterior infarct , age undetermined Prolonged QT Abnormal ECG No previous ECGs available Referred By: Renetta Pavon Electronically Signed By: DUNCAN RAJAN
--- NOTE | 2025-01-09 09:03 | PC.NURSE ---
Addendum entered by Carla Alberts RN 01/09/25 09:04: Patient alert and oriented with alcohol use disorder who stopped drinking last night and believes he had a withdrawal sz. Patient here recently for a fall. Patient diaphoretic and tremulous. potline monitor applied and NSR noted. Lungs essentially clear bilat. Respirations even and non-labored. Positive smoking history. Abdomen soft, distended, non-tender with positive bowel sounds. Positive pedal pulses with no edema. Small scabbed areas noted to right wrist and large scabbed area noted to left knee. Original Note: Medical History (Updated 01/04/25 @ 14:43 by Momo Jacobs) Torn rotator cuff Sciatic nerve disease HTN (hypertension) Alcohol use disorder
--- NOTE | 2025-01-09 09:04 | ED.SEIZURE ---
HPI - Seizure General Chief Complaint: Seizure Stated Complaint: seizures Time Seen by Provider: 01/09/25 08:48 Source: patient, family and old records reviewed Mode of arrival: ambulatory Limitations: no limitations History of Present Illness ED Provider: JASPREET HPI Narrative: 59 yo male with PMH of ETOH use disorder about 12 beers a day but no hx of seizures, GERD, HTN, HLD, here with c/o trying to detox at home he notes he was in bed at 9pm and woke up soaked with urine and confused. He is not sure how long this lasted. He has never had this before. He states he feels shaky and does not feel well. No head trauma did fall on his knees recently. He has not been admitted to the hospital for seizures in past. MD complaint: seizure Onset (ago): day(s) (9pm yesterday ) Description of Episode: loss of consciousness Witnessed: No Trauma: No Seizure History: No Place: Home Possible Precipitating Event: alcohol withdrawal Associated symptoms: confusion Treatments prior to arrival: none Related Data Home Medications ?Medication ?Instructions ?Recorded ?Confirmed albuterol sulfate 90 mcg/actuation 2 inh inhalation Q4H PRN Shortness 04/17/24 04/17/24 aerosol inhaler Of Breath Or Wheezing amlodipine 5 mg tablet mg PO 04/17/24 04/17/24 atorvastatin 20 mg tablet 20 mg PO DAILY 04/17/24 04/17/24 cyclobenzaprine 10 mg tablet 10 mg PO BID PRN 04/17/24 04/17/24 escitalopram oxalate 10 mg tablet 10 mg PO DAILY 04/17/24 04/17/24 folic acid 1 mg tablet 1 mg PO DAILY 04/17/24 04/17/24 gabapentin 300 mg capsule 300 mg PO BID 04/17/24 04/17/24 lisinopril 10 mg tablet 10 mg PO DAILY 04/17/24 04/17/24 meloxicam 15 mg tablet 15 mg PO DAILY 04/17/24 04/17/24 metoprolol succinate 200 mg 200 mg PO DAILY 04/17/24 04/17/24 tablet,extended release 24 hr nifedipine 60 mg tablet,extended 60 mg PO DAILY 04/17/24 04/17/24 release omeprazole 20 mg capsule,delayed 20 mg PO DAILY@0630 04/17/24 04/17/24 release thiamine HCl (vitamin B1) 100 mg 100 mg PO DAILY 04/17/24 04/17/24 tablet (Vitamin B-1) fenofibrate nanocrystallized 145 145 mg PO DAILY 01/09/25 mg tablet gabapentin 300 mg capsule 600 mg PO BEDTIME 01/09/25 Previous Rx's ?Medication ?Instructions ?Recorded lidocaine 5 % topical patch 1 patch topical DAILY #15 ea 12/09/23 naproxen 500 mg tablet 500 mg PO BID #14 tabs 12/09/23 Allergies Allergy/AdvReac Type Severity Reaction Status Date / Time shellfish derived Allergy Itching Verified 01/09/25 08:19 Review of Systems Review of Systems: Constitutional : No Fever, No Chills, No Fatigue ENT/Mouth : No sore throat, No Rhinorrhea Eyes: No Eye Pain, No Swelling, No Redness Cardiovascular : No Chest Pain, No SOB, No Dyspnea on Exertion Respiratory : No Cough, No Sputum Gastrointestinal : No Nausea, No Vomiting, No Diarrhea, No abdominal Pain Genitourinary : No Dysuria, No Urinary Frequency, No Hematuria, Musculoskeletal : No joint pain, No Myalgias, No Joint Swelling Skin : No Skin Lesions, No rash Neuro : No Weakness, No Numbness, No Dizziness, no Headache, pos seizure All other systems reviewed and are negative PMFSH Past Medical History Attestation statement: The following information was validated with the patient. Source: old records reviewed Medical History Torn rotator cuff Sciatic nerve disease HTN (hypertension) Surgical History Previous back surgery Social History Social History Alcohol intake: current Alcohol intake frequency: 3 or more drinks per day Alcohol type: beer Cigarettes Per Day: 10 Smoked in Last 30 Days: Yes Use of substances other than those prescribed or required for medical reasons: Yes Substance Use Type: Marijuana Substance Use Frequency: Chronic Longstanding Any prior treatment program specific to substance use: Yes Advance Directives: Yes Advance Directives Information Provided: Yes Advance Directives on File: No Do you have a plan to hurt others: No Plan Physical Exam Vital Signs: Vital Signs: Last Vital Signs Temp 98.3 F 01/09/25 08:43 Pulse 80 01/09/25 10:00 Resp 15 01/09/25 10:00 BP 169/92 H 01/09/25 10:00 Pulse Ox 99 01/09/25 10:00 O2 Del Method Nasal Cannula 01/09/25 10:00 O2 Flow Rate 2 01/09/25 10:00 BMI result Body Mass Index 29.8 Appearance: Alert. Oriented X3. Mild acute distress. Eyes: Pupils equal, round and reactive to light. ENT: Pharynx normal. tongue fasciculations Neck: Normal inspection. Neck supple. CVS: Normal heart rate and rhythm. Pulses normal. Respiratory: No respiratory distress. Breath sounds normal. Abdomen: Soft and nontender. Skin: Skin warm and dry. Normal skin color. Normal skin turgor. Extremities: No lower extremity edema. No calf ttp abrasions on both knees old Neuro: Oriented X 3. No motor deficit. No sensory deficit. CN2-12 intact. tremors Course Course Course Narrative: did well after IV valium easily woken but did go down to 89%, responded well to 2L NC - he is more calm less anxious. he is a heavy smoker Medications Administered Discontinued Medications Generic Name Dose Route Start Last Admin Trade Name Busterq PRN Reason Stop Dose Admin Diazepam 5 mg 01/09/25 08:54 01/09/25 09:10 Diazepam 10 Mg/2 Ml Cartridge IVPUSH 01/09/25 08:55 5 mg STAT STA Administration Thiamine HCl 200 mg/ Sodium 102 mls @ 204 mls/hr 01/09/25 08:54 01/09/25 09:40 Chloride IV 01/09/25 09:23 Infused ONCE ONE Infusion Lactated Ringer's 1,000 mls @ 999 mls/hr 01/09/25 08:54 01/09/25 10:30 Lr IV 01/09/25 09:54 Infused .Q1H1M ONE Infusion Magnesium Sulfate 2 gm in 50 mls @ 25 mls/hr 01/09/25 08:54 01/09/25 09:10 Magnesium Sulfate/H2o IV 01/09/25 10:53 25 mls/hr ONCE ONE Administration Phenobarbital Sodium 264 mg 01/09/25 10:00 01/09/25 10:03 Phenobarbital Sodium 130 Mg/Ml Im Once IM 01/09/25 10:01 264 mg ONCE ONE Administration Protocol Medical Decision Making Medical Decision Making MDM Narrative: 59 yo male with PMH of ETOH use disorder about 12 beers a day but no hx of seizures, GERD, HTN, HLD, here with c/o seizure 9pm in bed no trauma he is shaky and tremulous at this time will need labs, IV magnesium, IV thiamine, IVF and start on valium and phenobarb. He has no head trauma. No SI. Hx consistent with ETOH seizure Differential Diagnosis Differential Diagnoses: The differential diagnosis associated with the presentation includes lyte abnormality, alcohol withdrawal, seizure Admission/Observation Consideration of admission/observation: Escalation of care including admission/observation considered will admit for further workup Consult Healthcare Provider Management of the patient was discussed with: Hospitalist (will admit) Lab Data [facility] Lab Attestation statement: I reviewed the patient's lab results. 01/09/25 08:45 01/09/25 08:45 Labs: Lab Results 01/09/25 Range/Units 08:45 WBC 6.3 (4.8-10.8) X10*3/uL RBC 4.59 L (4.60-5.80) X10*6/uL Hgb 15.8 (14.0-18.0) g/dl Hct 43.2 (42.0-52.0) % MCV 94.1 (80.0-98.0) fL MCH 34.4 H (27.0-33.0) pg MCHC 36.6 H (31.0-36.0) g/dl RDW 13.2 (11.0-16.0) % Plt Count 241 D (160-400) X10*3/uL MPV 9.9 (9.4-12.4) fL Immature Gran % (Auto) 0.3 (0.0-0.4) % Neut % (Auto) 74.3 H (45-73) % Lymph % (Auto) 13.6 L (20-40) % [place] % (Auto) 10.5 (2-11) % Eos % (Auto) 0.2 (0-4) % Baso % (Auto) 1.1 (0-2) % Lymph # (Auto) 0.9 L (1.2-4.9) X10*3/uL [place] # (Auto) 0.7 (0.1-1.2) X10*3/uL Eos # (Auto) 0.0 (0.0-0.4) X10*3/uL Baso # (Auto) 0.1 (0.0-0.2) X10*3/uL Abs Immat Gran (auto) 0.02 (0.00-0.03) X10*3/uL Absolute Neuts (auto) 4.7 (2.0-8.3) x10*3/uL Absolute Nucleated RBC 0.000 (0.0-0.012) X10*3/uL Nucleated RBC % (auto) 0.0 (0.0-0.2) /100WBC Sodium 139 (135-145) mmol/L Potassium 3.4 (3.3-5.1) mmol/L Chloride 102 (96-108) mmol/L Carbon Dioxide 25 (22-29) mmol/L Anion Gap 15 (12-20) BUN 3 L (9-16) mg/dL Creatinine 0.66 (0.5-1.4) mg/dL Estim Creat Clear Calc 124.8 Estimated GFR > 60 Random Glucose 149 H (60-115) mg/dL Calcium 8.8 D (8.4-10.2) mg/dL Magnesium 1.6 (1.6-2.6) mg/dL Total Bilirubin 1.0 (0.0-1.0) mg/dL AST 102 H (5-37) U/L ALT 39 (0-40) U/L Alkaline Phosphatase 101 (39-117) U/L Total Protein 7.1 (6.5-8.0) g/dL Albumin 3.8 (3.5-5.0) g/dL Ethyl Alcohol 105 mg/dL Independent Interpretation I performed an independent interpretation of an: EKG Interpretation: Rate: 68 Rhythm: NSR [place]: left Normal P waves. Normal MARYJANE. Normal QRS complex. ST T wave : inverted t waves V1, flat t waves V2-V4, no ROC qTC: 506 prior studies: no acute ischemia The study has been interpreted contemporaneously by me. . Critical Care Time Critical Care Time Critical Care Time: Yes Total Critical Care Time: 45 Attestation: Time is exclusive of separately billable procedures. Time includes: direct patient care, patient reassessment, coordination of patient care, interpretation of data (laboratory data, pulse oximetry,)), review of patient's medical records, medical consultation and documentation of patient care. IV valium and IM Phenobarb protocol. Procedures excluded from critical care time: electrocardiography. I attest to this time spent taking care of the patient Discharge Plan Discharge Clinical Impression: Alcohol withdrawal seizure Qualifiers: Complication of substance-induced condition: with unspecified complication Qualified Code(s): F10.939 - Alcohol use, unspecified with withdrawal, unspecified Patient Disposition: Admitted As Inpatient
[2025-01-09 09:08] LABS: Alanine Aminotransferase 39 U/L (0-40); Albumin Level 3.8 g/dL (3.5-5.0); Alkaline Phosphatase 101 U/L (39-117); Anion Gap 15 (12-20); Aspartate Amino Transferase 102 U/L (5-37); Blood Urea Nitrogen 3 mg/dL (9-16); Calcium 8.8 mg/dL (8.4-10.2); Carbon Dioxide 25 mmol/L (22-29); Chloride 102 mmol/L (96-108); Creatinine Clr Calc Pharmacy 124.8; Estimated Glomerular Filt Rate > 60; Magnesium 1.6 mg/dL (1.6-2.6); Potassium 3.4 mmol/L (3.3-5.1); Sodium 139 mmol/L (135-145); Total Protein 7.1 g/dL (6.5-8.0)
[2025-01-09] MEDS: Thiamine HCL 200 MG in 0.9 % Sodium Chloride 100 ML 204 MG IV (09:09)
[2025-01-09] MEDS: diazePAM 10 MG/2 ML CARTRIDGE 5 MG IVPUSH (09:10)
[2025-01-09] MEDS: Magnesium Sulfate/H2O 2 GM/50 ML PIGGYBACK IV (09:10)
[2025-01-09] MEDS: Lactated Ringers 1,000 ML 999 ML IV (09:11)
[2025-01-09] MEDS: PHENobarbitaL sodium 130 MG/ML IM ONCE 264 MG IM (10:03)
--- NOTE | 2025-01-09 10:56 | PM.IMHP ---
History of Present Illness Date of Service: 01/09/25 Chief Complaint: seizures 59M PMH hereditary hemochromatosis, etoh dependence, htn, hld, hepatic steatosis presented with seizures. 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 In ED patient diaphoretic and tremulous given phenobarbital Review of Systems Review of Systems: Yes all other systems are reviewed and are negative [facility] Medical History Torn rotator cuff Sciatic nerve disease HTN (hypertension) Surgical History Previous back surgery Social History Alcohol intake: current Alcohol intake frequency: 3 or more drinks per day Alcohol type: beer Cigarettes Per Day: 10 Smoked in Last 30 Days: Yes Use of substances other than those prescribed or required for medical reasons: Yes Substance Use Type: Marijuana Substance Use Frequency: Chronic Longstanding Any prior treatment program specific to substance use: Yes Advance Directives: Yes Advance Directives Information Provided: Yes Advance Directives on File: No Do you have a plan to hurt others: No Plan Meds Allergies Allergy/AdvReac Type Severity Reaction Status Date / Time shellfish derived Allergy Itching Verified 01/09/25 08:19 Active Medications: Current Medications Acetaminophen (Acetaminophen 325 Mg Tablet) 650 mg PO Q6H PRN PRN Reason: Pain, Mild 1-3,fever,headache Calcium Carbonate (Calcium Carbonate 750 Mg Tab.Chew) 750 mg PO Q4H PRN PRN Reason: Heartburn Magnesium Hydroxide (Milk Of Magnesia 30 Ml Oral.Susp) 30 ml PO DAILY PRN PRN Reason: Constipation Melatonin (Melatonin 3 Mg Tablet) 6 mg PO BEDTIME PRN PRN Reason: Insomnia Pharmacy Consult (Consult Rx Etoh Phenob Im/Po) 1 each MISCELLANE ONCE PRN; Protocol PRN Reason: Consult order Phenobarbital (Phenobarbital 15 Mg Tablet) 45 mg PO BID MARY; Protocol Stop: 01/11/25 21:01 Phenobarbital (Phenobarbital 30 Mg Tablet) 30 mg PO BID MARY; Protocol Stop: 01/13/25 21:01 Phenobarbital (Phenobarbital 30 Mg Tablet) 30 mg PO DAILY [facility]; Protocol Stop: 01/15/25 09:01 Phenobarbital Sodium (Phenobarbital Sodium 130 Mg/Ml Vial Im Q3hx2) 198 mg IM Q3H MARY; Protocol Stop: 01/09/25 16:01 Sodium Chloride (0.9 % Sodium Chloride Flush 3 Ml Syringe) 3 ml IVFLUSH QSHIFT [facility] Home Medications ?Medication ?Instructions ?Recorded ?Confirmed ?Last Taken ?Type albuterol sulfate 90 mcg/actuation 2 inh inhalation Q4H PRN Shortness 04/17/24 04/17/24 Unknown History aerosol inhaler Of Breath Or Wheezing amlodipine 5 mg tablet mg PO 04/17/24 04/17/24 Unknown History atorvastatin 20 mg tablet 20 mg PO DAILY 04/17/24 04/17/24 Unknown History cyclobenzaprine 10 mg tablet 10 mg PO BID PRN 04/17/24 04/17/24 Unknown History escitalopram oxalate 10 mg tablet 10 mg PO DAILY 04/17/24 04/17/24 Unknown History folic acid 1 mg tablet 1 mg PO DAILY 04/17/24 04/17/24 Unknown History gabapentin 300 mg capsule 300 mg PO BID 04/17/24 04/17/24 Unknown History lisinopril 10 mg tablet 10 mg PO DAILY 04/17/24 04/17/24 Unknown History meloxicam 15 mg tablet 15 mg PO DAILY 04/17/24 04/17/24 Unknown History metoprolol succinate 200 mg 200 mg PO DAILY 04/17/24 04/17/24 Unknown History tablet,extended release 24 hr nifedipine 60 mg tablet,extended 60 mg PO DAILY 04/17/24 04/17/24 Unknown History release omeprazole 20 mg capsule,delayed 20 mg PO DAILY@0630 04/17/24 04/17/24 Unknown History release thiamine HCl (vitamin B1) 100 mg 100 mg PO DAILY 04/17/24 04/17/24 Unknown History tablet (Vitamin B-1) fenofibrate nanocrystallized 145 145 mg PO DAILY 01/09/25 Unknown History mg tablet gabapentin 300 mg capsule 600 mg PO BEDTIME 01/09/25 Unknown History Physical Exam Vital Signs and Narrative: Vital Signs: Last Vital Signs Temp 98.3 F 01/09/25 08:43 Pulse 80 01/09/25 10:00 Resp 15 01/09/25 10:00 BP 169/92 H 01/09/25 10:00 Pulse Ox 99 01/09/25 10:00 O2 Del Method Nasal Cannula 01/09/25 10:00 O2 Flow Rate 2 01/09/25 10:00 BMI result Body Mass Index 29.8 General: AO X 3, no acute distress, diaphoretic, tremulous Resp: CTA bilateral, no accessory muscles used CVS: S1,S2,RRR GI: soft, non tender, non distended Neuro: motor grossly intact, alert Psych: appropriate affect, appropriate insight Results Labs 01/09/25 08:45 01/09/25 08:45 Labs: Laboratory Results - last 24 hr 01/09/25 08:45 MCV 94.1 MCH 34.4 H MCHC 36.6 H RDW 13.2 Plt Count 241 D MPV 9.9 Immature Gran % (Auto) 0.3 Neut % (Auto) 74.3 H Lymph % (Auto) 13.6 L [place] % (Auto) 10.5 Eos % (Auto) 0.2 Baso % (Auto) 1.1 Lymph # (Auto) 0.9 L [place] # (Auto) 0.7 Eos # (Auto) 0.0 Baso # (Auto) 0.1 Abs Immat Gran (auto) 0.02 Absolute Neuts (auto) 4.7 Absolute Nucleated RBC 0.000 Nucleated RBC % (auto) 0.0 Anion Gap 15 Estim Creat Clear Calc 124.8 Estimated GFR > 60 Random Glucose 149 H Calcium 8.8 D Magnesium 1.6 Total Bilirubin 1.0 AST 102 H ALT 39 Alkaline Phosphatase 101 Total Protein 7.1 Albumin 3.8 Ethyl Alcohol 105 Assessment and Plan (1) Alcohol withdrawal seizure: Qualifiers: Complication of substance-induced condition: with unspecified complication Qualified Code(s): F10.939 - Alcohol use, unspecified with withdrawal, unspecified; R56.9 - Unspecified convulsions Status: Acute Plan 59M PMH hereditary hemochromatosis, etoh dependence, htn, hld, hepatic steatosis presented with seizures Alcohol dependence with withdrawal and seizure Phenobarbital, CIWA Addiction Monitor LFTs, vitamin supplement Hypertension Continue metoprolol, amlodipine Hyperlipidemia Continue statin Hepatic steatosis Multifactorial-alcohol, hereditary hemochromatosis-check iron profile DVT prophylaxis with Lovenox Full code Quality Stroke Does the patient have a stroke diagnosis?: No VTE Prior VTE?: No VTE Risk Level:: Medical - moderate - high VTE Device Contraindication: Treatment Not Indicated VTE Drug Contraindication: N/A - Med Ordered
--- NOTE | 2025-01-09 11:59 | PHA.MEDREC ---
Addendum entered by [facility] 01/09/25 12:25: Reviewed by [facility] Original Note: Pharmacy Consult ? Medication Reconciliation Pharmacy has completed the medication reconciliation. Spoke with pt and he had on hand an outdated list of medications we went through and confirmed what the pt is taking for medications. Pt stated he ran out of his Metoprolol about 5 days ago and pt ran out of his Nifedipine tabs 2 weeks ago and states his pharmacy hasn't filled them but he should be taking them.
[2025-01-09] MEDS: PHENobarbitaL sodium 130 MG/ML VIAL IM Q3Hx2 198 MG IM ×2 (13:05→16:25)
[2025-01-09] MEDS: 0.9 % Sodium Chloride Flush 3 ML SYRINGE IVFLUSH (16:27)
[2025-01-10 03:15] VITALS: BP 184/90; PULSE 79; RESP 20; TEMP 36.3; O2SAT 96
[2025-01-10 06:55] LABS: Alanine Aminotransferase 43 U/L (0-40); Albumin Level 3.9 g/dL (3.5-5.0); Alkaline Phosphatase 105 U/L (39-117); Aspartate Amino Transferase 89 U/L (5-37); Blood Urea Nitrogen 5 mg/dL (9-16); Calcium 9.2 mg/dL (8.4-10.2); Creatinine Clr Calc Pharmacy 119.1; Estimated Glomerular Filt Rate > 60; Iron 193 mcg/dL (45-160); Magnesium 2.1 mg/dL (1.6-2.6); Percent Iron Saturation 89 % (15-50); Total Iron Binding Capacity 218 mcg/dL (228-428); Total Protein 7.0 g/dL (6.5-8.0); Unsaturated Iron Binding < 25 ug/dL
[2025-01-10 07:02] LABS: Anion Gap 14 (12-20); Carbon Dioxide 26 mmol/L (22-29); Chloride 103 mmol/L (96-108); Potassium 4.3 mmol/L (3.3-5.1); Sodium 139 mmol/L (135-145)
[2025-01-10 07:20] LABS: Hematocrit 45.7 % (42.0-52.0); Hemoglobin 16.4 g/dl (14.0-18.0); Mean Corpuscular HGB Conc 35.9 g/dl (31.0-36.0); Mean Corpuscular Hemoglobin 34.5 pg (27.0-33.0); Mean Corpuscular Volume 96.2 fL (80.0-98.0); NRBC Abs Auto 0.000 X10*3/uL (0.0-0.012); NRBC Pct Auto 0.0 /100WBC (0.0-0.2); Platelet Count 234 X10*3/uL (160-400); Red Blood Count 4.75 X10*6/uL (4.60-5.80); White Blood Count 6.1 X10*3/uL (4.8-10.8)
[2025-01-10 07:45] VITALS: BP 173/84; PULSE 76; RESP 18; TEMP 37.2; O2SAT 93
[2025-01-10 07:45] LABS: CDiff Gene PCR NEGATIVE (Negative)
[2025-01-10] MEDS: NIFEdipine ER 60 MG TAB.ER.24 PO (08:12)
[2025-01-10] MEDS: Metoprolol Succinate ER 100 MG TAB.ER.24H 200 MG PO (08:12)
[2025-01-10] MEDS: 0.9 % Sodium Chloride Flush 3 ML SYRINGE IVFLUSH ×2 (08:13→16:59)
--- NOTE | 2025-01-10 08:30 | MHC.CM.PN ---
CM met with Patient at bedside and addressed IMM with him, providing Patient with the original and a copy has been placed on the chart. Patient lives in a house with his Aunt Ashley and he required no services nor DME FE[employer]. Home self care vs Recovery Team intervention R/T ETOH is the tentative plan and CM has initiated and will follow for dc planning.PCP is Dr. Luis Sandoval and Brother/Sam will transport to home at time of dc. Sister/Ruth is the HCP.
--- NOTE | 2025-01-10 09:52 | P.PNIM_ITS ---
Subjective Subjective Date of Service: 01/10/25 Interval History: tremor Physical Exam 2 Vital Signs: Vital Signs: Last Vital Signs Temp 98.9 F 01/10/25 07:45 Pulse 76 01/10/25 07:45 Resp 18 01/10/25 07:45 BP 173/84 H 01/10/25 07:45 Pulse Ox 93 01/10/25 07:45 O2 Del Method Room Air 01/10/25 07:45 O2 Flow Rate 2 01/09/25 10:00 BMI result Body Mass Index 28.7 General: AO X 3, n o acute distress, diaphoretic, tremu lous Resp: CTA bi lateral, no access ory muscles used C VS: S1,S2,RRR GI: soft, non tender, non distended Neur o: motor grossly intact, alert Psyc h: appropriate aff ect, appropriate i nsight Objective Data Active Medications Acetaminophen (Acetaminophen 325 Mg Tablet) 650 mg PO Q6H PRN PRN Reason: Pain, Mild 1-3,fever,headache Last Admin: 01/09/25 20:19 Dose: 650 mg Documented By: YAMILETH Albuterol Sulfate (Albuterol Sulfate 90 Mcg 8 Gm Inhaler) 2 puff INHALE Q4H PRN PRN Reason: Shortness Of Breath Or Wheezing Atorvastatin Calcium (Atorvastatin Calcium 20 Mg Tablet) 20 mg PO DAILY [facility] TO [facility] Last Admin: 01/10/25 08:12 Dose: 20 mg Documented By: SRIDEVI Calcium Carbonate (Calcium Carbonate 750 Mg Tab.Chew) 750 mg PO Q4H PRN PRN Reason: Heartburn Enoxaparin Sodium (Enoxaparin Sodium 40 Mg/0.4 Ml Syringe) 40 mg SUBCUT Q24H [facility]END[facility] Last Admin: 01/10/25 08:13 Dose: 40 mg Documented By: SRIDEVI Escitalopram Oxalate (Escitalopram Oxalate 10 Mg Tablet) 10 mg PO DAILY [facility] Last Admin: 01/10/25 08:12 Dose: 10 mg Documented By: SRIDEVI Fenofibrate (Fenofibrate 160 Mg Tablet) 160 mg PO DAILY [facility] TO [facility] Last Admin: 01/10/25 08:12 Dose: 160 mg Documented By: SRIDEVI Folic Acid (Folic Acid 1 Mg Tablet) 1 mg PO DAILY [facility] Last Admin: 01/10/25 08:12 Dose: 1 mg Documented By: SRIDEVI Gabapentin (Gabapentin 300 Mg Capsule) 600 mg PO DAILY [facility] Last Admin: 01/10/25 08:12 Dose: 600 mg Documented By: SRIDEVI Magnesium Hydroxide (Milk Of Magnesia 30 Ml Oral.Susp) 30 ml PO DAILY PRN PRN Reason: Constipation Melatonin (Melatonin 3 Mg Tablet) 6 mg PO BEDTIME PRN PRN Reason: Insomnia Last Admin: 01/09/25 20:19 Dose: 6 mg Documented By: YAMILETH Metoprolol Succinate (Metoprolol Succinate Er 100 Mg Tab.Er.24h) 200 mg PO DAILY [facility]; Protocol Last Admin: 01/10/25 08:12 Dose: 200 mg Documented By: SRIDEVI Multivitamins/Vitamin C (Multivitamin Tablet) 1 tab PO DAILY [facility] Last Admin: 01/10/25 08:12 Dose: 1 tab Documented By: SRIDEVI Nifedipine (Nifedipine Er 60 Mg Tab.Er.24) 60 mg PO DAILY [facility] Last Admin: 01/10/25 08:12 Dose: 60 mg Documented By: SRIDEVI Omeprazole (Omeprazole 20 Mg Capsule.Dr) 20 mg PO DAILY@0630 [facility] Last Admin: 01/10/25 06:05 Dose: 20 mg Documented By: YAMILETH Pharmacy Consult (Consult Rx Etoh Phenob Im/Po) 1 each MISCELLANE ONCE PRN; Protocol PRN Reason: Consult order Phenobarbital (Phenobarbital 15 Mg Tablet) 45 mg PO BID [facility]; Protocol Stop: 01/11/25 21:01 Last Admin: 01/10/25 08:12 Dose: 45 mg Documented By: SRIDEVI Phenobarbital (Phenobarbital 30 Mg Tablet) 30 mg PO BID [facility]; Protocol Stop: 01/13/25 21:01 Phenobarbital (Phenobarbital 30 Mg Tablet) 30 mg PO DAILY [facility]; Protocol Stop: 01/15/25 09:01 Sodium Chloride (0.9 % Sodium Chloride Flush 3 Ml Syringe) [facility] Last Admin: 01/10/25 08:13 Dose: 3 ml Documented By: SRIDEVI Thiamine HCl (Thiamine Hcl 100 Mg Tablet) 100 mg PO DAILY [facility] Last Admin: 01/10/25 08:12 Dose: 100 mg Documented By: SRIDEVI Labs 01/10/25 06:07 01/10/25 06:07 Labs: Laboratory Results - last 24 hr 01/10/25 01/10/25 06:07 06:10 MCV 96.2 MCH 34.5 H MCHC 35.9 RDW 13.1 Plt Count 234 MPV 10.2 Absolute Nucleated RBC 0.000 Nucleated RBC % (auto) 0.0 Anion Gap 14 Estim Creat Clear Calc 119.1 Estimated GFR > 60 Random Glucose 118 H Calcium 9.2 Magnesium 2.1 Iron 193 H TIBC 218 L % Saturation 89 H Unsat Iron Binding < 25 Total Bilirubin 1.3 H Direct Bilirubin 0.7 H AST 89 H ALT 43 H Alkaline Phosphatase 105 Total Protein 7.0 Albumin 3.9 C. difficile Tox B Gene NEGATIVE Assessment and Plan (1) Alcohol dependence: Status: Acute Plan 59M PMH hereditary hemochromatosis, etoh dependence, htn, hld, hepatic steatosis presented with seizures Alcohol dependence with withdrawal and seizure Phenobarbital, CIWA Addiction vitamin supplement Hypertension Continue metoprolol, amlodipine Hyperlipidemia Continue statin Hepatic steatosis Multifactorial-alcohol, hereditary hemochromatosis- outpatient follow up DVT prophylaxis with Lovenox Full code reason for continued hospitalization: withdrawal Quality Stroke Does the patient have a stroke diagnosis?: No VTE Prior VTE?: No VTE Risk Level:: Medical - moderate - high VTE Device Contraindication: Treatment Not Indicated VTE Drug Contraindication: N/A - Med Ordered
[2025-01-10 11:34] VITALS: BP 148/81; PULSE 85; RESP 18; TEMP 37.1; O2SAT 92
--- NOTE | 2025-01-10 12:15 | PC.NURSE ---
Patient gave permission for Brother Sam Coello to receive updates regarding care.
[2025-01-10 12:48] LABS: E. coli EAEC Not Detected (Not Detect.); E. coli EPEC Detected (Not Detect.); E. coli ETEC Not Detected (Not Detect.); E. coli STEC Not Detected (Not Detect.); Shigella sp./EIEC Not Detected (Not Detect.)
[2025-01-10 15:43] VITALS: BP 149/80; PULSE 66; RESP 18; TEMP 37.1; O2SAT 94
--- NOTE | 2025-01-10 16:13 | HO.ADDICTCON ---
History of Present Illness Date of Service: 01/10/2025 Chief Complaint: etoh withdrawal Reason for Consult: AUD Sources of Information: patient interviewed and chart reviewed HPI Narrative: Patient is a 59 year old male with history of AUD and hereditary hemochromatosis Presented to [facility] ED reporting withdrawal sx and possibly waking up in urine at home--? seizure. Medically admitted with acute alcohol withdrawal. Patient seen in room 444. He is awake, alert, pleasant and engaged in interview. He reports long history of AUD. Most recently drinking at least a 12 pack of beer and several nips daily. He states that Wednesday he presented to [facility] and was unable to secure a bed, so he went home and drank a 12 pack. Wednesday morning he presented to [facility]. Treatment history discussed--reports admission to 35 facility. Most recently at the end of 2017. He abstained from alcohol for 2 years, until he had several deaths in his family and began drinking again. Denies any other treatment admissions Discussed JANICE--he states he has a bottle of Campral at home, but is not taking it. Has not trialled Naltrexone. Strong family history of AUD--mother passed at age 47. 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 Withdrawal sx improved from yesterday--denies loose stools, n/v, mild tremor. no diaphoresis or restlessness noted Medical Evaluation Reviewed: Yes Review of Systems Constitutional: Reports as per HPI Diagnostics Vital Signs (24Hr): Vital Signs - 24 hr 01/09/25 17:18 01/09/25 17:58 01/09/25 19:32 Temperature 98.2 F 97.9 F 98 F Pulse Rate 68 76 98 Respiratory Rate 19 18 18 Blood Pressure 206/93 H 171/87 H 163/98 H Pulse Oximetry 92 94 95 Oxygen Delivery Method Room Air Room Air Room Air 01/09/25 23:47 01/10/25 03:15 01/10/25 07:45 Temperature 97.4 F 97.4 F 98.9 F Pulse Rate 74 79 76 Respiratory Rate 20 20 18 Blood Pressure 167/94 H 184/90 H 173/84 H Pulse Oximetry 97 96 93 Oxygen Delivery Method Room Air Room Air Room Air 01/10/25 11:34 01/10/25 15:43 Temperature 98.8 F 98.8 F Pulse Rate 85 66 Respiratory Rate 18 18 Blood Pressure 148/81 H 149/80 H Pulse Oximetry 92 94 Oxygen Delivery Method Room Air Room Air BMI result Body Mass Index 28.7 Labs 01/10/25 06:07 01/10/25 06:07 Labs: Laboratory Results - last 48 hr 01/09/25 01/10/25 01/10/25 08:45 06:07 06:10 WBC 6.3 6.1 RBC 4.59 L 4.75 Hgb 15.8 16.4 Hct 43.2 45.7 MCV 94.1 96.2 MCH 34.4 H 34.5 H MCHC 36.6 H 35.9 RDW 13.2 13.1 Plt Count 241 D 234 MPV 9.9 10.2 Immature Gran % (Auto) 0.3 Neut % (Auto) 74.3 H Lymph % (Auto) 13.6 L [place] % (Auto) 10.5 Eos % (Auto) 0.2 Baso % (Auto) 1.1 Lymph # (Auto) 0.9 L [place] # (Auto) 0.7 Eos # (Auto) 0.0 Baso # (Auto) 0.1 Abs Immat Gran (auto) 0.02 Absolute Neuts (auto) 4.7 Absolute Nucleated RBC 0.000 0.000 Nucleated RBC % (auto) 0.0 0.0 Sodium 139 139 Potassium 3.4 4.3 D Chloride 102 103 Carbon Dioxide 25 26 Anion Gap 15 14 BUN 3 L 5 L Creatinine 0.66 0.68 Estim Creat Clear Calc 124.8 119.1 Estimated GFR > 60 > 60 Random Glucose 149 H 118 H Calcium 8.8 D 9.2 Magnesium 1.6 2.1 Iron 193 H TIBC 218 L % Saturation 89 H Unsat Iron Binding < 25 Total Bilirubin 1.0 1.3 H Direct Bilirubin 0.7 H AST 102 H 89 H ALT 39 43 H Alkaline Phosphatase 101 105 Total Protein 7.1 7.0 Albumin 3.8 3.9 Stl C. cayetanensis PCR Not Detected Stool Rotavirus A PCR Not Detected Stl Adenov F 40/ PCR Not Detected Stool Astrovirus (PCR) Not Detected Stool Campylobacter PCR Not Detected Stool Cryptosporidium PCR Not Detected Stl Sh Tox Pr E STEC PCR Not Detected Stool E coli O157 PCR Not applicable Stl Enterotoxigenic E PCR Not Detected Stool EPEC (PCR) Detected A Stool EAEC (PCR) Not Detected Stl E. histolytica PCR Not Detected Stool Giardia Lamblia PCR Not Detected Stl P. shigelloides PCR Not Detected Stool Salmonella PCR Not Detected Stool Sapovirus (PCR) Not Detected Stl Shigella/EIEC PCR Not Detected St Y.enterocolitica PCR Not Detected Stool Vibrio (PCR) Not Detected Stl Vibrio cholerae PCR Not Detected Stl Norovirus GI/GII PCR Not Detected Ethyl Alcohol 105 C. difficile Tox B Gene NEGATIVE Mental Status Exam Mental Status Exam Level of Consciousness: Awake, Appropriate and Alert Patient Behavior: Appropriate and Talkative Affect Description: Calm Speech Pattern: Clear Hallucinations: None Thought Process: Intact Thought Content: positive for Intact Judgement: Good Medications Medications Current Medications Acetaminophen (Acetaminophen 325 Mg Tablet) 650 mg PO Q6H PRN PRN Reason: Pain, Mild 1-3,fever,headache Last Admin: 01/10/25 12:00 Dose: 650 mg Albuterol Sulfate (Albuterol Sulfate 90 Mcg 8 Gm Inhaler) 2 puff INHALE Q4H PRN PRN Reason: Shortness Of Breath Or Wheezing Atorvastatin Calcium (Atorvastatin Calcium 20 Mg Tablet) 20 mg PO DAILY [facility] Last Admin: 01/10/25 08:12 Dose: 20 mg Calcium Carbonate (Calcium Carbonate 750 Mg Tab.Chew) 750 mg PO Q4H PRN PRN Reason: Heartburn Enoxaparin Sodium (Enoxaparin Sodium 40 Mg/0.4 Ml Syringe) 40 mg SUBCUT Q24H [facility] Last Admin: 01/10/25 08:13 Dose: 40 mg Escitalopram Oxalate (Escitalopram Oxalate 10 Mg Tablet) 10 mg PO DAILY [facility] Last Admin: 01/10/25 08:12 Dose: 10 mg Fenofibrate (Fenofibrate 160 Mg Tablet) 160 mg PO DAILY [facility] Last Admin: 01/10/25 08:12 Dose: 160 mg Folic Acid (Folic Acid 1 Mg Tablet) 1 mg PO DAILY [facility] Last Admin: 01/10/25 08:12 Dose: 1 mg Gabapentin (Gabapentin 300 Mg Capsule) 600 mg PO DAILY [facility] Last Admin: 01/10/25 08:12 Dose: 600 mg Magnesium Hydroxide (Milk Of Magnesia 30 Ml Oral.Susp) 30 ml PO DAILY PRN PRN Reason: Constipation Melatonin (Melatonin 3 Mg Tablet) 6 mg PO BEDTIME PRN PRN Reason: Insomnia Last Admin: 01/09/25 20:19 Dose: 6 mg Metoprolol Succinate (Metoprolol Succinate Er 100 Mg Tab.Er.24h) 200 mg PO DAILY [facility]; Protocol Last Admin: 01/10/25 08:12 Dose: 200 mg Multivitamins/Vitamin C (Multivitamin Tablet) 1 tab PO DAILY [facility] Last Admin: 01/10/25 08:12 Dose: 1 tab Nifedipine (Nifedipine Er 60 Mg Tab.Er.24) 60 mg PO DAILY [facility] Last Admin: 01/10/25 08:12 Dose: 60 mg Omeprazole (Omeprazole 20 Mg Capsule.Dr) 20 mg PO DAILY@0630 [facility] Last Admin: 01/10/25 06:05 Dose: 20 mg Pharmacy Consult (Consult Rx Etoh Phenob Im/Po) 1 each MISCELLANE ONCE PRN; Protocol PRN Reason: Consult order Phenobarbital (Phenobarbital 15 Mg Tablet) 45 mg PO BID [facility]; Protocol Stop: 01/11/25 21:01 Last Admin: 01/10/25 08:12 Dose: 45 mg Phenobarbital (Phenobarbital 30 Mg Tablet) 30 mg PO BID [facility]; Protocol Stop: 01/13/25 21:01 Phenobarbital (Phenobarbital 30 Mg Tablet) 30 mg PO DAILY [facility]; Protocol Stop: 01/15/25 09:01 Sodium Chloride (0.9 % Sodium Chloride Flush 3 Ml Syringe) 3 ml IVFLUSH QSHIFT [facility] Last Admin: 01/10/25 08:13 Dose: 3 ml Thiamine HCl (Thiamine Hcl 100 Mg Tablet) 100 mg PO DAILY [facility] Last Admin: 01/10/25 08:12 Dose: 100 mg Allergies Allergies Allergy/AdvReac Type Severity Reaction Status Date / Time shellfish derived Allergy Itching Verified 01/09/25 08:19 Assessment & Plan Assessment & Plan (1) Alcohol use disorder, severe, dependence: Status: Acute Code(s): F10.20 - Alcohol dependence, uncomplicated Assessment and Plan: withdrawal sx much improved, phenobarbital taper in place po thiamine Recovery Support RN to follow in AM to discuss JANICE and other recovery supports --patient verbalizing motivation for treatment and help seeking Total time managing care of this patient today __30__ minutes. PMFSH Past Medical History Medical History (Updated 01/10/25 @ 16:13 by Caty Pena CNP) Alcohol dependence Hereditary hemochromatosis Torn rotator cuff Sciatic nerve disease HTN (hypertension) Surgical History Surgical History Previous back surgery Social History Social History Household Members: Family Housing: House Do you presently have visiting nurse or other home services: Yes Alcohol intake: current Alcohol intake frequency: 3 or more drinks per day Alcohol type: beer Patient Tobacco Use Status: Current everyday Tobacco user Tobacco use type: Cigarette Cigarettes Per Day: 10 Substance Use Type: Marijuana service: No
[2025-01-10 19:13] VITALS: BP 138/79; PULSE 63; RESP 17; TEMP 36.7; O2SAT 95
[2025-01-10 23:56] VITALS: BP 163/92; PULSE 65; RESP 17; TEMP 36.7; O2SAT 95
[2025-01-11] VITALS (7 sets, daily range): BP systolic 145–175; BP diastolic 82–88; PULSE 65–86; RESP 16–17; TEMP 36.3–36.9; O2SAT 93–96
[2025-01-11 07:03] LABS: Hematocrit 42.5 % (42.0-52.0); Hemoglobin 15.4 g/dl (14.0-18.0); Mean Corpuscular HGB Conc 36.2 g/dl (31.0-36.0); Mean Corpuscular Hemoglobin 34.5 pg (27.0-33.0); Mean Corpuscular Volume 95.1 fL (80.0-98.0); NRBC Abs Auto 0.000 X10*3/uL (0.0-0.012); NRBC Pct Auto 0.0 /100WBC (0.0-0.2); Platelet Count 220 X10*3/uL (160-400); Red Blood Count 4.47 X10*6/uL (4.60-5.80); White Blood Count 5.9 X10*3/uL (4.8-10.8)
[2025-01-11 07:23] LABS: Anion Gap 15 (12-20); Blood Urea Nitrogen 7 mg/dL (9-16); Calcium 8.5 mg/dL (8.4-10.2); Carbon Dioxide 25 mmol/L (22-29); Chloride 102 mmol/L (96-108); Creatinine Clr Calc Pharmacy 128.5; Estimated Glomerular Filt Rate > 60; Magnesium 1.9 mg/dL (1.6-2.6); Potassium 3.6 mmol/L (3.3-5.1); Sodium 138 mmol/L (135-145)
[2025-01-11] MEDS: 0.9 % Sodium Chloride Flush 3 ML SYRINGE IVFLUSH ×3 (07:47→21:02)
[2025-01-11] MEDS: Metoprolol Succinate ER 100 MG TAB.ER.24H 200 MG PO (07:48)
[2025-01-11] MEDS: NIFEdipine ER 60 MG TAB.ER.24 PO (07:49)
--- NOTE | 2025-01-11 10:19 | P.PNIM_ITS ---
Subjective Subjective Date of Service: 01/11/25 Interval History: diarrhea resolved, still with witdhrawal symptoms Physical Exam 2 Vital Signs: Vital Signs: Last Vital Signs Temp 97.3 F 01/11/25 07:50 Pulse 74 01/11/25 07:50 Resp 17 01/11/25 07:50 BP 165/87 H 01/11/25 07:50 Pulse Ox 95 01/11/25 07:50 O2 Del Method Room Air 01/11/25 07:50 O2 Flow Rate 2 01/09/25 10:00 BMI result Body Mass Index 28.7 General: AO X 3, n o acute distress, diaphoretic, tremu lous Resp: CTA bi lateral, no access ory muscles used C VS: S1,S2,RRR GI: soft, non tender, non distended Neur o: motor grossly intact, alert Psyc h: appropriate aff ect, appropriate i nsight Objective Data Active Medications Acetaminophen (Acetaminophen 325 Mg Tablet) 650 mg PO Q6H PRN PRN Reason: Pain, Mild 1-3,fever,headache Last Admin: 01/11/25 07:59 Dose: 650 mg Documented By: SIMONE Acetaminophen/Butalbital/Caffeine (Butalb/Acetamin/Caff 50/325/40 Tablet) 1 tab PO Q4H PRN PRN Reason: Headache Albuterol Sulfate (Albuterol Sulfate 90 Mcg 8 Gm Inhaler) 2 puff INHALE Q4H PRN PRN Reason: Shortness Of Breath Or Wheezing Atorvastatin Calcium (Atorvastatin Calcium 20 Mg Tablet) 20 mg PO DAILY [facility] Last Admin: 01/11/25 07:49 Dose: 20 mg Documented By: SIMONE Calcium Carbonate (Calcium Carbonate 750 Mg Tab.Chew) 750 mg PO Q4H PRN PRN Reason: Heartburn Enoxaparin Sodium (Enoxaparin Sodium 40 Mg/0.4 Ml Syringe) 40 mg SUBCUT Q24H [facility] Last Admin: 01/11/25 07:50 Dose: 40 mg Documented By: SIMONE Escitalopram Oxalate (Escitalopram Oxalate 10 Mg Tablet) 10 mg PO DAILY [facility] Last Admin: 01/11/25 07:50 Dose: 10 mg Documented By: SIMONE Fenofibrate (Fenofibrate 160 Mg Tablet) 160 mg PO DAILY [facility] Last Admin: 01/11/25 07:49 Dose: 160 mg Documented By: SIMONE Folic Acid (Folic Acid 1 Mg Tablet) 1 mg PO DAILY [facility] Last Admin: 01/11/25 07:50 Dose: 1 mg Documented By: SIMONE Gabapentin (Gabapentin 300 Mg Capsule) 600 mg PO DAILY [facility] Last Admin: 01/11/25 07:49 Dose: 600 mg Documented By: SIMONE Magnesium Hydroxide (Milk Of Magnesia 30 Ml Oral.Susp) 30 ml PO DAILY PRN PRN Reason: Constipation Melatonin (Melatonin 3 Mg Tablet) 6 mg PO BEDTIME PRN PRN Reason: Insomnia Last Admin: 01/10/25 19:50 Dose: 6 mg Documented By: NICK Metoprolol Succinate (Metoprolol Succinate Er 100 Mg Tab.Er.24h) 200 mg PO DAILY [facility]; Protocol Last Admin: 01/11/25 07:48 Dose: 200 mg Documented By: SIMONE Multivitamins/Vitamin C (Multivitamin Tablet) 1 tab PO DAILY [facility] Last Admin: 01/11/25 07:49 Dose: 1 tab Documented By: SIMONE Nifedipine (Nifedipine Er 60 Mg Tab.Er.24) 60 mg PO DAILY [facility] Last Admin: 01/11/25 07:49 Dose: 60 mg Documented By: SIMONE Nystatin (Nystatin Cream 15 Gm Tube) 1 appl TOPICAL BID [facility]; Protocol Last Admin: 01/11/25 07:56 Dose: 1 appl Documented By: SIMONE Omeprazole (Omeprazole 20 Mg Capsule.Dr) 20 mg PO DAILY@0630 [facility] Last Admin: 01/11/25 06:11 Dose: 20 mg Documented By: NICK Pharmacy Consult (Consult Rx Etoh Phenob Im/Po) 1 each MISCELLANE ONCE PRN; Protocol PRN Reason: Consult order Phenobarbital (Phenobarbital 15 Mg Tablet) 45 mg PO BID [facility]; Protocol Stop: 01/11/25 21:01 Last Admin: 01/11/25 07:50 Dose: 45 mg Documented By: SIMONE Phenobarbital (Phenobarbital 30 Mg Tablet) 30 mg PO BID [facility]; Protocol Stop: 01/13/25 21:01 Phenobarbital (Phenobarbital 30 Mg Tablet) 30 mg PO DAILY [facility]; Protocol Stop: 01/15/25 09:01 Sodium Chloride (0.9 % Sodium Chloride Flush 3 Ml Syringe) 3 ml IVFLUSH QSHIFT [facility] Last Admin: 01/11/25 07:47 Dose: 3 ml Documented By: SIMONE Thiamine HCl (Thiamine Hcl 100 Mg Tablet) 100 mg PO DAILY [facility] Last Admin: 01/11/25 07:49 Dose: 100 mg Documented By: SIMONE Labs 01/11/25 06:28 01/11/25 06:28 Labs: Laboratory Results - last 24 hr 01/10/25 01/11/25 06:10 06:28 MCV 95.1 MCH 34.5 H MCHC 36.2 H RDW 12.7 Plt Count 220 MPV 10.1 Absolute Nucleated RBC 0.000 Nucleated RBC % (auto) 0.0 Anion Gap 15 Estim Creat Clear Calc 128.5 Estimated GFR > 60 Random Glucose 91 Calcium 8.5 D Magnesium 1.9 Stl C. cayetanensis PCR Not Detected Stool Rotavirus A PCR Not Detected Stl Adenov F 40/41 PCR Not Detected Stool Astrovirus (PCR) Not Detected Stool Campylobacter PCR Not Detected Stool Cryptosporidium PCR Not Detected Stl Sh Tox Pr E STEC PCR Not Detected Stool E coli O157 PCR Not applicable Stl Enterotoxigenic E PCR Not Detected Stool EPEC (PCR) Detected A Stool EAEC (PCR) Not Detected Stl E. histolytica PCR Not Detected Stool Giardia Lamblia PCR Not Detected Stl P. shigelloides PCR Not Detected Stool Salmonella PCR Not Detected Stool Sapovirus (PCR) Not Detected Stl Shigella/EIEC PCR Not Detected St Y.enterocolitica PCR Not Detected Stool Vibrio (PCR) Not Detected Stl Vibrio cholerae PCR Not Detected Stl Norovirus GI/GII PCR Not Detected Assessment and Plan (1) Alcohol dependence: Status: Acute Plan 59M PMH hereditary hemochromatosis, etoh dependence, htn, hld, hepatic steatosis presented with seizures Alcohol dependence with withdrawal and seizure Phenobarbital, [facility] Addiction vitamin supplement Hypertension Continue metoprolol, amlodipine Hyperlipidemia Continue statin Hepatic steatosis Multifactorial-alcohol, hereditary hemochromatosis- outpatient follow up DVT prophylaxis with Lovenox Full code reason for continued hospitalization: withdrawal Quality Stroke Does the patient have a stroke diagnosis?: No VTE Prior VTE?: No VTE Risk Level:: Medical - moderate - high VTE Device Contraindication: Treatment Not Indicated VTE Drug Contraindication: N/A - Med Ordered
[2025-01-11] MEDS: Butalb/Acetamin/Caff 50/325/40 TABLET 1 TAB PO ×2 (10:52→15:24)
--- NOTE | 2025-01-11 14:31 | PC.NURSE ---
Patient on [facility] protocol. Scheduled phenobarbitol given with positive affect. Pt complaint of headache per pain scale. PRN tylenol given with no affect, PRN fioricet given with positive affect. Pt stated having increasing anxiety; Dr Perry aware. Ordered PRN ativan; given with positive affect. Continuw to monitor pt per [facility] protocol
--- NOTE | 2025-01-11 16:41 | MHC.RECOVRN ---
TW met with pt in room 444-1 to provide resources and support with AUD. Pt was sitting in bed, watching TV and agreeable to meeting. He was pleasant, calm, and engaged during interaction. Pt reports his brother just left and is a great support . He also states his brother was looking forward to reviewing the resources and supports the ACS team was sharing but states he will share them with him later. Pt states, I need to make a change I can not keep living this way. My family, especially my aunt are ready to ring my neck . Discussed options for JANICE and day structure such as attending and IOP. Also discussed and provided information on SMART recovery and therapy options. Pt expressed gratitude for all the help he has received from everyone and states, I'm happy I came here. I think thsi is just what I needed . Pt denied any further questions are concerns and was told ACS will check in again tomorrow. ACS team to follow and available if needed.
[2025-01-12] VITALS: BP 169/94; PULSE 70; RESP 17; TEMP 36.2; O2SAT 95
[2025-01-12 03:37] VITALS: BP 164/78; PULSE 69; RESP 16; TEMP 36.6; O2SAT 93
[2025-01-12] MEDS: 0.9 % Sodium Chloride Flush 3 ML SYRINGE IVFLUSH (07:33)
[2025-01-12 07:58] VITALS: BP 162/72; PULSE 76; RESP 17; TEMP 36.5; O2SAT 94
[2025-01-12 08:54] VITALS: BP 160/94; PULSE 105
[2025-01-12] MEDS: NIFEdipine ER 60 MG TAB.ER.24 PO (08:54)
[2025-01-12] MEDS: Metoprolol Succinate ER 100 MG TAB.ER.24H 200 MG PO (08:54)
--- NOTE | 2025-01-12 09:33 | P.DS_ITS ---
DS: Providers Provider Date of Service: 01/12/25 Date of admission: 01/09/25 09:38 Date of discharge: 01/12/25 Primary care physician: Luis Sandoval MD Consults: 01/09/25 11:02 Addiction Medicine Provider Routine Consulting Provider: Addiction Covering Reason for consultation: etoh DS: Diagnosis Discharge Diagnosis (1) Alcohol dependence: Status: Acute DS: Summary Hospital Course Hospital Course: from initial hpi: 59M PMH hereditary hemochromatosis, etoh dependence, htn, hld, hepatic steatosis presented with seizures. 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 In ED patient diaphoretic and tremulous given phenobarbital hospital course: Patient was admitted for alcohol dependence with withdrawal and seizure. Was treated with phenobarbital and vitamin supplements and withdrawal symptoms eventually resolved. He was seen by Addiction team who provided support. For hypertension was continued on metoprolol and amlodipine. For hyperlipidemia continue statin. For hepatic steatosis this is multifactorial due to alcohol use and hereditary hemochromatosis. He will continue to follow up with Hematology. Time Attestation Discharge Coordination Time (in mins): 34 Quality: Safe Use of Opioids Does Pt have an Active Cancer Diagnosis on the Problem List?: No Quality: Stroke Does the patient have a stroke diagnosis?: No Physical Exam Exam: Exam: General: AO X 3, no acute distress Resp: CTA bilateral, no accessory muscles used CVS: S1,S2,RRR GI: soft, non tender, non distended Neuro: motor grossly intact, alert Psych: appropriate affect, appropriate insight Vital Signs: Vital Signs: Last Vital Signs Temp 97.7 F 01/12/25 07:58 Pulse 105 H 01/12/25 08:54 Resp 17 01/12/25 07:58 BP 160/94 H 01/12/25 08:54 Pulse Ox 94 01/12/25 07:58 O2 Del Method Room Air 01/12/25 07:58 O2 Flow Rate 2 01/09/25 10:00 BMI result Body Mass Index 28.7 Discharge Plan Discharge Anticipated Discharge Date/Time: 01/12/25 09:26 Patient Disposition: Home, Self-Care Discharge Diagnosis: etoh Referrals: Luis Sandoval MD [Primary Care Provider, Internal Medicine] - 1 Week Discharge Medications: Continued gabapentin 300 mg capsule 600 mg PO DAILY fenofibrate nanocrystallized 145 mg tablet 145 mg PO DAILY acetaminophen 650 mg Tablet Extended Release 1,300 mg PO Q8H PRN (Reason: Pain) lidocaine 5 % adhesive patch,medicated 1 patch topical DAILY PRN (Reason: Pain) Rx Instructions: leave on most painful area for up to 12 hrs albuterol sulfate 90 mcg/actuation HFA aerosol inhaler 2 inh inhalation Q4H PRN (Reason: Shortness Of Breath Or Wheezing) escitalopram oxalate 10 mg tablet 10 mg PO DAILY metoprolol succinate 200 mg tablet extended release 24 hr 200 mg PO DAILY nifedipine 60 mg tablet extended release 60 mg PO DAILY thiamine HCl (vitamin B1) [Vitamin B-1] 100 mg tablet 100 mg PO DAILY folic acid 1 mg tablet 1 mg PO DAILY omeprazole 20 mg capsule,delayed release(DR/EC) 20 mg PO DAILY@0630 atorvastatin 20 mg tablet 20 mg PO DAILY Discharge Orders: Discharge Order (Routine); Ordered 01/12/25 Ordered By: Johnathon Perry Diet: Advance to usual diet Activity on Discharge: As tolerated Stand Alone Forms: Patient Portal Discharge page Print Language: Syriac Care Plan Goals: recovery Health Concerns: etoh withdrawal Plan of Treatment: avoid etoh Assessment: see above
--- NOTE | 2025-01-12 09:52 | MHC.RECOVRN ---
Met with pt in follow up. Discussed readiness for d/c and plans regarding pursuing sobriety. 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 Pt also accepted [facility] referral and appointment was made for Wednesday01/15/2025 3:15pm. Info entered in d/c summary. No further questions or concerns offered at this time.
--- NOTE | 2025-01-12 09:55 | MHC.CM.PN ---
Patient has been medically cleared for dc to home today, self care. Last IMM was addressed on 01/10/2025.
== END 2025-01-12 11:00 | disposition home or self-care (01) | DRG 897 ==
LOC: HO.ED 09:33 → HO.EDOVER 09:53 → HO.IMC 16:50
PROVIDERS: Student in an Organized Health Care Education/Training Program; Admitting Provider Internal Medicine; Emergency Provider Emergency Medicine; PCP Internal Medicine; Visit Provider Internal Medicine
DX: F10.239 Alcohol dependence with withdrawal, unspecified (principal); F17.210 Nicotine dependence, cigarettes, uncomplicated; Y90.5 Blood alcohol level of 100-119 mg/100 ml; Z71.6 Tobacco abuse counseling; I10 Essential (primary) hypertension; E78.5 Hyperlipidemia, unspecified; K70.0 Alcoholic fatty liver; E83.110 Hereditary hemochromatosis; R56.9 Unspecified convulsions; Z79.899 Other long term (current) drug therapy
CPT/HCPCS: 36415; 80048; 80053; 80076; 80307; 83540; 83735; 85025; 85027; 87493; 87507; 93005; 99285; J1650; J2560; J3360; J3411; J3475; J7120; S9485

== ENCOUNTER → 2025-01-09 08:55 | Outpatient (BNV) | payer OTHER, SELFPAY | PROVIDERS: Admitting Provider Internal Medicine; Emergency Provider Emergency Medicine; PCP Internal Medicine; Visit Provider Internal Medicine | DX: R94.31 Abnormal electrocardiogram [ECG] [EKG] (principal); F10.90 Alcohol use, unspecified, uncomplicated | CPT/HCPCS: 93010 ==

== ENCOUNTER → 2025-01-09 09:38 | Outpatient (BNV) | payer OTHER, SELFPAY | PROVIDERS: Admitting Provider Internal Medicine; Emergency Provider Emergency Medicine; PCP Internal Medicine; Visit Provider Nurse Practitioner Psychiatric/Mental Health | DX: F10.20 Alcohol dependence, uncomplicated (principal) | CPT/HCPCS: 99221 ==

== ENCOUNTER → 2025-01-09 09:38 | Outpatient (BNV) | payer OTHER, SELFPAY | PROVIDERS: Admitting Provider Internal Medicine; Emergency Provider Emergency Medicine; PCP Internal Medicine; Visit Provider Internal Medicine | DX: F10.20 Alcohol dependence, uncomplicated (principal) | CPT/HCPCS: 99223; 99232; 99239 ==

== ENCOUNTER 2025-01-15 14:57 | Outpatient (AMB) | payer OTHER, SELFPAY ==
[2025-01-15 15:10] VITALS: PULSE 86; O2SAT 96
--- NOTE | 2025-01-15 15:10 | A.OFFVISCC_ITS ---
Vital Signs 01/15/25 15:10 Height 5 ft 7 in Pulse 86 Pulse Oximetry (%) 96 Intake Visit Reasons: MAT Intake Allergies shellfish derived Allergy (Verified 01/15/25 15:15) Itching HPI Comments Details: The patient is a 60-year-old male who presents for an intake visit post inpatient stay for alcohol withdrawal. With the patient's permission his aunt is present at the visit and verbalizes concern with his presentation related to what is described as acting off. The patient reports he feels well with mild intermittent episodes of dizziness. The aunt is requesting an ammonia level, currently there is no recent lab ordered for this. The patient reports maintaining sobriety since hospital discharge and began taking acamprosate which had been prescribed previously with positive results. Review of Systems Const All systems reviewed & are unremarkable except as noted in HPI and below Physical Exam Vital Signs: Last Vital Signs Pulse 86 01/15/25 15:10 Pulse Ox 96 01/15/25 15:10 Const General: cooperative and well groomed Nutritional Appearance: average body habitus Orientation/consciousness: patient oriented x3 HEENT Head: Yes normal to inspection Ears: hearing grossly normal bilaterally Neck Neck: Yes normal visual inspection Resp Effort & Inspection: normal respiratory effort Auscultation: wheezes (mild wheezing at lower lobes ) Cardio Rate: regular rate Rhythm: regular rhythm Skin Trauma: abrasion (Bilateral knees ) Neuro General: patient oriented x3 Psych Appearance: well kempt Mental Status: mental status grossly normal Speech and movement: Slowed speech present (Psych) Affect: Blunted affect present Attitude: cooperative Thought process: Normal thought process present Thought content: Normal thought content present Insight: Fair insight present (Psych) Judgement: Fair judgement present (Psych) [facility] Medical History Alcohol dependence Hereditary hemochromatosis Torn rotator cuff Sciatic nerve disease HTN (hypertension) Surgical History Previous back surgery Social History Household Members: Family Housing: House Do you presently have visiting nurse or other home services: Yes Alcohol intake: current Alcohol intake frequency: 3 or more drinks per day Alcohol type: beer Patient Tobacco Use Status: Current everyday Tobacco user Tobacco use type: Cigarette Cigarettes Per Day: 10 Substance Use Type: Marijuana service: No Assessment & Plan Assessment & Plan (1) Alcohol use disorder, severe, dependence: Code(s): F10.20 - Alcohol dependence, uncomplicated Category: Medical Plan The plan of care is to continue on the acamprosate 333mg, two tablets TID, have labs drawn today to evaluate ammonia and LFT levels. classroom technology coach services discuss and [facility] nurse will follow up with patient to connect. Follow up with PCP on Wednesday for evaluation r/t low blood pressure and possible medication adjustment. Recommended the patient follow up today with emergency department and patient and aunt declined and reported they will monitor and wait for worsening signs/symptoms. Education provided re: if symptoms of intermttent dizziness worsen or other symptoms develop to go to nearest emergency department or call 911. Orders: Orders Ammonia Today F10.20 - Alcohol dependence, uncomplicated Liver Panel Today F10.20 - Alcohol dependence, uncomplicated AMB 14 Panel Urine Drug Screen Today F10.20 - Alcohol dependence, uncomplicated Patient Instructions: - Continue on acamprosate 333mg, two tablets TID prescribed by a previous provider. - have labs drawn today for ammonia and LFT levels. - Go to nearest emergency room or call 911 if symptoms of intermittent dizziness worsen or new symptoms develop. - Follow upp in tow weeks or sooner, if needed. MAT Intake Nursing Intake Reason for visit: Treatment of AUD Are you currently using?: No When was your last use?: 01/11/25 How much?: 12 cans beer What is your source of income?: Disability What is your current relationship status?: Single/ Current PCP: Dr Rivers Date of last visit: 01/17/25 Referral Source: [facility] [place] Substance Abuse History Substance Abuse History (includes route, frequency and quantity): Oxycodone product (prescribed in past-torn rotator cuffs), Cocaine (many year ago), Marijuana and Tobacco (daily) Age of first use: #9 daily Social History Domestic Violence concerns: no Children: 1 adult Do you have a support system?: family Current mode of transportation?: family - [place] in 2011 Where are you currently residing?: Family home with relatives in [place] LMP: na IV Drug Use Have you ever shared needles?: No Have you ever belonged to a needle exchange program?: No Do you buy needles at a pharmacy?: No Have you ever overdosed?: No Number of lifetime overdoses: 0 Have you ever been hospitalized for an overdose?: No Was Naloxone administered?: No Recovery History Have you had any periods of recovery?: Yes What is your longest time in recovery?: 3 years When was the last time you were in recovery?: [id number] Have you ever had inpatient treatment for your substance abuse disorder?: Yes Have you been in an inpatient detoxification program?: Yes Have you been in an inpatient Rehab/[place] house?: Yes Have you been in an outpatient Methadone Maintenance program?: No Have you been in an outpatient Suboxone Maintenance program?: No Have you been in an AA/NA support program?: Yes Have you had a Recovery Support Preparation Center Coordinator?: No Have you had Peer Support?: No (interested in a basketball coach) Behavioral Health History Do you have a current provider? If so, who?: no diagnosis: depression History of other addictive behavior: no History of inpatient psychiatric hospitalization? If so, how many? Most Recent? Where?: no History of self harming thoughts?: No History of homicidal or suicidal intentions?: No Medical Conditions Endocarditis?: No Skin Infection: No Seizure related to withdrawal or overdose: Yes (question as to sober or not when witnessed) Head or brain injury: No Hepatitis A (if yes, have you been treated?): No Hepatitis B (if yes, have you been treated?): No Hepatitis C (if yes, have you been treated?): No HIV (if yes, have you been treated?): No TB (if yes, have you been treated?): No Other: No Legal History History of incarceration: Yes (probation violation years ago 30 days) Currently on parole or probation: No Pending court cases: No DCF involvement: No
--- OUTSIDE RECORDS SUMMARY | 2025-01-15 15:41 | XMS_ITS | Data Portability ---
Author Organization [place] [facility], [facility] Address [address] [place] [address] Care Team Providers Care Horse Race Starter Name Role Phone BROOKLYNN GANDHI Primary Care [...] [address] [facility], [address], [facility] [address], [place], [address], 12/01/2024 10:10:16 MRI, lumbar spine, w/o contrast - mri lumbar -eval for stenosis [address] [facility] ([facility]), [address], [place], [address], 12/13/2024 16:06:36 Medication Orders None recorded. Patient TargetsNo targets recorded. Patient InstructionsNo instructions recorded. Reason for Referral None Reported. Results Created Date Observation Date Name Description Value Unit Range Abnormal Flag Note LastModifiedBy Organization Detail LastModifiedTime 11/29/19 25 11/28/2024 XR, lumba r spine , 2 view http:/ [email or web address] ?Encry pted=s hAaTro YD8dLq bEUv6g %2BXZw aYqtaq 0bqfl% 2Fg9IQ a4ajBk vP9nXo QUaueC m3YtLR FvZlgJ J8Granger HZtai3 9s5274 AC0Kla 3SEVaK mKiQtr MwF INTERFACE [facility] [address], [place], [address], 11/28/2024 15:10:47 11/29/19 25 11/28/2024 XR, lumba r spine , 2 view http:/ [email or web address] ?Encry pted=s hAaTro YD8dLq bEUv6g %2BXZw aYqtaq 0bqfl% 2Fg9IQ a4ajBk vP9nXo QUaueC m3YtLR FvZlg[facility] MIRAMAR8[facility] Hospitaltai3 1l3963 AC0Kla 3SEVaK mKiQtr MwF INTERFACE [facility] [address], [place], [address], 11/28/2024 15:10:48 12/14/19 25 12/12/2024 MRI, lumba r spine , w/o contr ast [facility] Access ion Number : [id number] Patito t Name: Thao Coello Medica l Record Number : [id number] Date of : 1964 Date of Exam: 2024 Referr ing Physic kirti: Braden Conley [address] [place] [place] [address] Exam: MR Lumbar Spine (C-) CPT 08464 Room Descri ption: [facility] 3.0T MR Lumbar Spine (C-) CPT 00184 INDICA TION: Radicu lopath y, lumbar region [...] S: There is atroph y of the quality 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 DETAIL ED [...] Electr onical ly Signed By: Debbie severino [facility] ([facility]) [address], [place], [address], 12/14/2024 11:41:31 Result Notes Documentation Provider Name and Address Organization Details Recorded Time Xr, Lumbar Spine, 2 View : [email or web address]? Encrypted=qxYfHhuER9jPgkS Uv6g%8QCScmZvyum5gwxj%2Fg 2XSr9wnRtlG1nCeVHwrsPd5Pd JFHwPikYQU1kJvBBscr33y816 5MH2Dzw8FOTjRsEsQriBlL Not Available [facility] 11/28/2024 15:10:48 Xr, Lumbar Spine, 2 View : [email or web address] Encrypted=rhCgSzeAK5yTvrR Uv6g%5QGFpyJqpnz5vsya%2Fg 3GZg9jgVbdW9uYxFIdxgBh5Lj UOIaXmhUGT8hVlXMwry57i525 7WP1Lvf2UVVyGhVxTweLyJ Not Available [facility] 11/28/2024 15:10:49 Mri, Lumbar Spine, W/o Contrast : [facility]ion Number: [id number] Patient Name: Justice Coello Date of : 1965 Date of Exam: 12-12-2024 Referring Physician: Braden Conley [address] [place] [address] Exam: MR Lumbar Spine (C-) CPT 72980 Room Description: [facility] 3.0T MR Lumbar Spine (C-) CPT 61401 INDICATION: Radiculopathy, lumbar region mri lumbar -eval for stenosis Radiculopathy, lumbar region mri lumbar -eval for stenosis TECHNIQUE: MRI of the lumbar spine was performed without intravenous contrast utilizing sagittal T1, sagittal T2, sagittal STIR, axial T1, and axial T2-weighted sequences. COMPARISON: None. FINDINGS: NUMBERING: The study assumes 5 piq-cqy-elarook lumbar type vertebral bodies. ALIGNMENT, VERTEBRAE, MARROW, [...] distribution symptoms. Electronically Signed By: Debbie yu [facility] 12/14/2024 11:41:31 Problems Name Problem SNOMED Code Status Onset Date Resolution Date Notes Provider Name and Address Organization Details Recorded Time No complaints 666053412 Active Status: 'I'; Not Available [facility] 4 09:25:26 Full thickness rotator cuff tear 781045597 Active 2016 Problem Code: M75.121; Problem Code Type: ICD-10; Status: 'A'; Not Available [facility] 4 11:59:23 Lumbar radiculopat hy 247639408 Active 2024 Juju Holguin, PILE DRIVER ENGINEER [address], [place], [address] , [facility] 5 16:11:08 Problem Notes None recorded. Medical Equipment None [...] Updated DateTime 12/26/2024 170.18 cm 29.8 kg/m2 13764.55 g CHRISTOPHER FORD [place] - [facility] 12/26/2024 10:11:19 Social History None recorded. Functional Status None recorded. Mental Status None recorded. Family History Nothing Reported. Medical History No medical history recorded. Past Encounters Encounter ID Performer Location Encounter Start Date Encounter Closed Date Diagnosis/Indication Diagnosis SNOMED-CT Code Diagnosis ICD10 Code Diagnosis Note [id number] MD JAEL William - [place] [address] [place] [address] 11/28/2024 14:07:35 12/01/2024 10:10:16 Lumbar radiculopathy 062868292 M54.16 [id number] Juju Holguin, THADDEUS [place] [address] [place] [address] 12/26/2024 09:52:43 01/05/2025 14:20:12 Lumbar radiculopathy 532640269 M54.16 Health Concerns Section Related Observation LastModified by Organization Detai ls LastModified Time None Recorded Concern Status LastModified by Organization Details LastModified Time None Recorded Advance Directives Directive None Recorded Payers Insurance Date Sequence Insurance Name Policy Number Policy Gale Covered Member ID Gale Member ID Guarantor Name 01/05/2025 1 [facility] - DOS ON OR AFTER 2022 - ONE CARE (MEDICARE REPLACEMENT/ADV ANTAGE - HMO) Justice Coello [id number] Justice Coello 02/10/2024 1 [facility]: HMO [facility] (O) Justice Coello [id number] Justice Coello Notes Date Note Type Note [...] some injection management as well ineffective. MEDICATIONS: Gztk-bly-cmcmkje medicines WORK STATUS: Medical Director/Head Team Physician IMAGING: CT scan lumbar consistent with ongoing lumbar degenerative disc disease X-RAY REPORT: X-rays ordered, obtained and reviewed at [facility]. Braden Conley MD [address], [place], [address], [place] - [facility] 11/28/2024 17:21:45 12/26/2024 text/html [...] effective. He reports JUSTIN injections x3 at [facility] within the last year with no help. Returns today for MRI review. He was supposed to see Dr. Conley, he's not sure why that appt was cancelled and he's seeing me instead. RADICULITIS: LLE lateral thigh PFMSH and ROS have been reviewed, updated, and it is located in the patient's chart. PRIOR TREATMENTS/MEDICATI ONS: JUSTIN (no help) WORK STATUS: [employer] EXAM: examination of the lumbar spineTransitions: Patient [...] surgical consult with Dr Conley Speech recognition solo truck driver software was used to create portions of this document. An attempt at proofreading has been made to minimize errors. Please call for corrections. Juju Holguin, PILE DRIVER ENGINEER [address] [facility] [address], [place], [address], [facility] - [facility] 12/26/2024 16:11:19
--- OUTSIDE RECORDS SUMMARY | 2025-01-15 15:41 | XMS_ITS | Encounter Summary ---
Author Organization [facility] Address [address] [place] [address] Care Team Providers Care Survey Compiler Name Role Phone Luis Sandoval MD Primary Care Provider [phone] Reason for Visit * Reason Onset Date Comments Hospital Follow-up 2025 Encounter Details Date Type Department Care Team ([facility] st Contact Info) Description 2025 Telephone Adult Medicine [facility] [address] [place] [phone] Luis Sandoval MD [address] [place] [address] Hospital Follow-up Social History Tobacco Use Types Packs/Day Years Used Date Smoking Tobacco: Every Day Cigarettes 1 49.5 Started: 08/01/1975 Smokeless Tobacco: Never Alcohol Use Standard Drinks/Week Comments Yes 0 (1 standard drink = 0.6 oz pur e alcohol) Sex and Gender Information Value Date Recorded Sex Assigned at Male 07/07/2024 12:14 PM EST Legal Sex Male 7:00 PM EST Gender Identity Male 07/07/2024 12:14 PM EST Sexual Orientation Straight 07/07/2024 12 :14 PM EST documented as of this encounter Progress Notes * Isabelle Santacruz RN - 2025 9:48 AM EDT Pt booked with dr sandoval 01/17 * Momo Dumont - 2025 8:45 AM EDT Hospital/ER follow up appointment needed Hospital patient was treated at: [facility] Was this only an ER visit or was the patient admitted to the hospital? Admitted to the hospital/kept overnight Date of visit if ER visit only: If patient was admitted what was the date of discharge? Reason/diagnosis for visit or stay: detox When was the patient told to follow up? 01/13/25 Was visit or stay related to an injury? If yes, what was the date of injury (DOI)? No If yes, was the injury due to: Not 3rd constitution party related documented in this encounter Plan of Treatment Upcoming Encounters Date Type Department Care Team (Late st Contact Info) Description 01/17/2025 9:30 AM EDT Office Visit Adult Medicine [address] [address] Luis Sandoval MD [address] [place] [address] documented as of this encounter Visit Diagnoses Not on filedocumented in this encounter Care Teams Survey Compiler Relationship Specialty Start Date End Date Luis Sandoval MD [address] [place] [address] PCP - General 06/14/23 documented as of this encounter
--- OUTSIDE RECORDS SUMMARY | 2025-01-15 15:41 | XMS_ITS | Clinical Summary ---
Author Organization [facility] Address [address] [place] [address] Care Team Providers Care Fee Clerk Name Role Phone Luis Sandoval MD Primary Care Provider [phone] Allergies Active Allergy Reactions Criticality Noted Date [...] different from the original. Therapeutic Phlebotomy - [facility] Problem Noted Date Diagnosed Date Stenosis, [...] age to complete this topic Care Teams Fee Clerk Relationship Specialty Start Date End Date Luis Sandoval MD [address] [place] [address] [phone] PCP - General Primary Care 06/14/23
== END 2025-01-15 16:33 | disposition home or self-care (01) ==
LOC: HO.HCC 14:57
PROVIDERS: PCP Internal Medicine; Visit Provider Clinical Nurse Specialist Psychiatric/Mental Health
DX: F10.20 Alcohol dependence, uncomplicated (principal)
CPT/HCPCS: 99204

== ENCOUNTER 2025-01-15 14:57 | Outpatient (REF) | payer OTHER, SELFPAY ==
[2025-01-15 17:05] LABS: Ammonia 43 umol/L (13-55)
[2025-01-15 17:41] LABS: Alanine Aminotransferase 36 U/L (0-40); Albumin Level 3.8 g/dL (3.5-5.0); Alkaline Phosphatase 95 U/L (39-117); Aspartate Amino Transferase 54 U/L (5-37); Total Protein 7.2 g/dL (6.5-8.0)
== END 2025-01-15 14:58 | disposition home or self-care (01) ==
LOC: HO.LAB 14:57
PROVIDERS: PCP Internal Medicine; Visit Provider Clinical Nurse Specialist Psychiatric/Mental Health
DX: F10.20 Alcohol dependence, uncomplicated (principal)
CPT/HCPCS: 36415; 80076; 82140; 99202

== ENCOUNTER 2025-01-29 14:24 | Outpatient (AMB) | payer OTHER, SELFPAY ==
--- OUTSIDE RECORDS SUMMARY | 2025-01-29 14:28 | XMS_ITS | Clinical Summary ---
Author Organization [facility] [address] [place] [address] [place] [phone] Phone Care Team Providers Care Name Plate Stamper Name Role Phone Luis Sandoval MD Primary Care Provider Allergies Active Allergy Reactions Criticality Noted Date Comments Shellfish Derived 11/01/2023 Medications acamprosate (CAMPRAL) 333 mg EC tablet Take 2 tablets (666 mg total) by mouth 3 (three) times a day. Active omeprazole (PriLOSEC) [address] capsule TAKE 1 CAPSULE BY MOUTH DAILY 90 capsule 1 11/23/19 25 Active folic acid (FOLVITE) 1 mg tablet TAKE 1 TABLET BY MOUTH DAILY 90 tablet 1 11/23/19 25 Active acetaminophen (Tylenol Extra Strength) 500 mg tablet Take 2 tablets (1,000 mg total) by mouth. 10/17/19 20 Active atorvastatin (LIPITOR) 20 mg tablet Take 1 tablet (20 mg total) by mouth 1 (one) time each day. 90 tablet 1 10/19/19 25 Active escitalopram (LEXAPRO) 10 mg tablet Take 1 tablet (10 mg total) by mouth 1 (one) time each day. 90 tablet 1 10/19/19 25 Active fenofibrate (TRICOR) 145 mg tablet Take 1 tablet (145 mg total) by mouth 1 (one) time each day. 90 tablet 1 10/19/19 25 Active gabapentin (NEURONTIN) 300 mg capsule Take 1 capsule (300 mg total) by mouth 2 (two) times a day. 180 each 1 10/19/19 25 Active metoprolol succinate (TOPROL-XL) 200 mg 24 hr tablet TAKE 1 TABLET(200 MG) BY MOUTH DAILY 90 tablet 01/13/20 25 Active NIFEdipine CC (ADALAT CC) 60 mg 24 hr tablet TAKE 1 TABLET BY MOUTH DAILY 90 tablet 01/13/20 25 Active cyclobenzaprin e (FLEXERIL) 10 mg tabletIndicati ons:Chronic midline low back pain without sciatica Take 1 tablet (10 mg total) by mouth at bedtime as needed for muscle spasms. 30 tablet 4 01/18/20 25 Active diclofenac (VOLTAREN) 1 % topical gel Apply 2 g topically 2 (two) times a day if needed (pain). 100 g 1 01/18/20 25 Active thiamine (Vitamin B-1) 100 mg tablet Take 1 tablet (100 mg total) by mouth 1 (one) time each day. 90 tablet 1 01/18/20 25 Active albuterol HFA (PROAIR HFA ; PROVENTIL HFA ; VENTOLIN HFA) 90 mcg/actuation inhaler Inhale 2 puffs by mouth every 4 (four) hours if needed for wheezing. 6.7 g 3 01/18/20 25 Active fluticasone furoate-vilant Jax (Breo Ellipta) 100-25 mcg/dose inhaler Inhale 1 puff by mouth 1 (one) time each day. 1 each 5 01/18/20 25 Active polyethylene glycol (MIRALAX) 17 gram packet Take 17 g by mouth 1 (one) time each day. 1530 g 1 01/18/20 25 Active lactulose (CHRONULAC) solution Take 10 mL (6.6667 g total) by mouth 1 (one) time each day if needed (Constipation m). 300 mL 3 01/18/20 25 Active LORazepam (ATIVAN) 0.5 mg tablet Take 1 tablet (0.5 mg total) by mouth 2 (two) times a day if needed for anxiety (Alcohol withdrawal). Max Daily Amount: 1 mg 20 tablet 01/18/20 25 Active magnesium oxide (MAG-OX) 400 mg magnesium tablet Take 1 tablet (400 mg total) by mouth 1 (one) time each day. 90 tablet 1 01/18/20 25 Active NIFEdipine CC (ADALAT CC) 60 mg 24 hr tablet TAKE 1 TABLET BY MOUTH DAILY 90 tablet 1 06/12/20 24 025 Discontinued metoprolol succinate (TOPROL-XL) 200 mg 24 hr tablet TAKE 1 TABLET(200 MG) BY MOUTH 1 TIME EACH DAY 90 tablet 10/03/19 25 025 Discontinued Vitamin B-1 100 mg tablet TAKE 1 TABLET BY MOUTH EVERY DAY 90 tablet 10/03/19 25 025 Discontinued(Re order) diclofenac (VOLTAREN) 1 % topical gel Apply 1 applicator topically. 02/29/20 24 025 Discontinued(Re order) lisinopriL (PRINIVIL,ZEST RIL) 10 mg tablet Take 1 tablet (10 mg total) by mouth 1 (one) time each day. 025 Discontinued cyclobenzaprin e (FLEXERIL) 10 mg tabletIndicati ons:Chronic midline low back pain without sciatica Take 1 tablet (10 mg total) by mouth at bedtime as needed for muscle spasms. 30 tablet 4 10/19/19 025 Discontinued(Re order) albuterol HFA (PROAIR HFA ; PROVENTIL HFA ; VENTOLIN HFA) 90 mcg/actuation inhaler Inhale 2 puffs by mouth every 4 (four) hours if needed for wheezing. 6.7 g 3 10/19/19 25 025 Discontinued(Re order) fluticasone furoate-vilant Jax (Breo Ellipta) 100-25 mcg/dose inhaler Inhale 1 puff by mouth 1 (one) time each day. 1 each 5 10/19/19 025 Discontinued(Re order) Active Problems Problem Noted Date Diagnosed Date [...] Encounters Date Type Department Care Team Description 01/22/2025 Telephone Gastroenterology - [facility] 200 [place] [address] Steffany Hernandez MD special procedure 01/17/2025 10:45 AM EDT Lab Draw [address] Hospital discharge follow-up; Alcohol dependence with withdrawal with complication (CMS/HCC V24, CMS/HCC V28); QT prolongation; Anxiety and depression; Hemochromatosis, unspecified hemochromatosis type; Wolff's esophagus without dysplasia; Chronic obstructive pulmonary disease, unspecified COPD type (CMS/HCC V24, CMS/HCC V28); Hypertriglyceridemia; Screening for colorectal cancer; Chronic midline low back pain without sciatica; Screening for prostate cancer; Primary hypertension; Alcohol use disorder; Prediabetes 01/17/2025 9:30 AM EDT Office Visit Adult Medicine [address] [phone] Luis Sandoval MD Hospital discharge follow-up (Primary Dx); Alcohol dependence with withdrawal with complication (CMS/HCC V24, CMS/HCC V28); QT prolongation; Anxiety and depression; Hemochromatosis, unspecified hemochromatosis type; Wolff's esophagus without dysplasia; Chronic obstructive pulmonary disease, unspecified COPD type (CMS/HCC V24, CMS/HCC V28); Hypertriglyceridemia; Chronic midline low back pain without sciatica; Screening for colorectal cancer; Primary hypertension 2025 Telephone Adult [address] [phone] Luis Sandoval MD Hospital Follow-up 12/11/2024 11:00 AM EDT Telemedicine Thoracic Surgery - [facility] [address] [facility] [address] [place] [address] Alanis Rob NP Lung nodule (Primary Dx) 11/21/2024 7:03 AM EDT - 11/21/2024 11:59 PM EDT Hospital Encounter [facility] CT Scan [address] [place] [id number] Lung nodule Discharge Disposition: Home or Self Care 10/30/2024 10:00 AM EDT Consult Gastroenterology - [facility] [address] [facility] [address] [place] [address] Leana Joya NP Wolff's esophagus without dysplasia (Primary Dx); History of adenomatous polyp of colon; Tobacco use 10/30/2024 Telephone Gastroenterology - [facility] [address] [facility] [address] [facility] [address] [place] [address] Leana Joya NP from Last 3 Months Surgical History Surgery Date Site/Laterality Comments LEG SURGERY PROCEDURE: HISTORICAL LEG SURGERY; COMMENT: ORIF Left Tibial Fx with hardware OTHER SURGICAL HISTORY PROCEDURE: LUMBAR SPINE FUSION, LAT TRANSVERSE ROTATOR CUFF REPAIR PROCEDURE: HISTORICAL ROTATOR CUFF REPAIR; COMMENT: BIlateral CARPAL TUNNEL RELEASE Right PROCEDURE: OK NEUROPLASTY &/TRANSPOS MEDIAN NRV CARPAL TUNNE SHOULDER SURGERY PROCEDURE:SHOULDER SURGERY BACK SURGERY PROCEDURE:BACK SURGERY HAND SURGERY PROCEDURE:HAND SURGERY Medical History Medical History Date Comments Alcoholism /alcohol abuse 02/15/2007 DX:Alc oholism /alcohol abuse; COMMENT: 02/09/07 Admitted to [facility] with alcoholic pancreatitis Depression 09/06/2018 DX:Depression 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 Hereditary hemochromatosis ([facility] V24) 019 DX:Hereditary hemochromatosis (HCC) Hx of pancreatitis 08/01/2018 DX:Hx of panc reatitis Hypertension DX:Hypertension Tobacco use 08/01/2018 DX:Tobacco use Tremor 09/06/2018 DX:Tremor Hypertriglyceridemia 09/06/2018 DX:Hypertri glyceridemia Seizure ([facility]/HCC V24, [facility]/HCC V28) 03/14/2019 DX:Seizure (HCC); COMMENT: Hospitalized 02/2019 COPD (chronic obstructive pu lmonary disease) ([facility]/HCC V24, [facility] V28) DX:COPD (chronic o bstructive pulmonary disease) ([facility]) Hypertension DX:Hypertension Family History Medical History Relation [...] Sign Reading Time Taken Comments Blood Pressure 116/72 01/17/2025 9:26 AM EDT Pulse 76 01/17/2025 9:26 AM EDT Temperature 36.1 C (96.9 F) 01/17/2025 9:26 AM EDT Respiratory Rate 16 01/17/2025 9:26 AM EDT Oxygen Saturation 95% 10/30/2024 10:06 AM EDT Inhaled Oxygen Concentration - - Weight 84.8 kg (187 lb) 01/17/2025 9:26 AM EDT Height 170.2 cm (5' 7 ) 01/17/2025 9:26 AM EDT Body Mass Index 29.29 01/17/2025 9:26 AM EDT Plan of Treatment Upcoming Encounters Date Type Department Care Team (Late st Contact Info) Description 03/20/2025 1:30 PM EDT Office Visit Adult Medicine [address] [phone] Luis Sandoval MD [address] [place] [id number] Health Maintenance Due Date Last Done Comments Hepatitis A Vaccines (1 of 2 - Risk 2-dose series) 01/14/1983 Pneumococcal Vaccine: 50+ Years (2 of 2 - PCV) 02/12/2008 02/11/2007 Zoster Vaccines (1 of 2) 01/14/2014 Colorectal Cancer Screening: Colonoscopy 05/30/2022 HIV Screening 05/30/2022 Hepatitis C Screening 05/30/2022 Medicare Annual Wellness Visit 05/30/2022 Social Influencers of Health Screening 05/30/2022 RSV Immunization Adult Patients (1 - Risk 60-74 years 1-dose series) 2024 COVID-19 Vaccine (2 - 2023- season) 2024 10/07/2020 Depression Screening 06/28/2024 Influenza Vaccine (#1) 2025 3, 03/17/2021, 03/21/2020, Additional history exists Lung Cancer Screening (Low Dose CT) 03/22/2025 03/22/2024 Hypertension/CHF/CAD Annual BMP Blood Test 01/17/2026 01/17/2025 DTaP,Tdap,and Td Vaccines (3 - Td or Tdap) 01/28/2027 01/28/2017, 06/28/1999 Cholesterol Screening (Lipid Panel) 01/17/2030 01/17/2025 HIB Vaccines Aged Out No longer eligi [...] Procedure Name Priority Date/Time Associated Diagnosis Comments ECG 12-LEAD Routine 01/17/2025 10:57 AM EDT QT prolongation CBC WITH AUTO DIFFERENTIAL Routine 01/17/2025 10:47 AM EDT Hospital discharge follow-up Alcohol dependence with withdrawal with complication (CMS/HCC V24, CMS/HCC V28) QT prolongation Anxiety and depression Hemochromatosis, unspecified hemochromatosis type Wolff's esophagus without dysplasia Chronic obstructive pulmonary disease, unspecified COPD type (CMS/HCC V24, CMS/HCC V28) Hypertriglyceridemia Screening for colorectal cancer Chronic midline low back pain without sciatica HEMOGLOBIN A1C Routine 01/17/2025 10:47 AM EDT Prediabetes LIPID PANEL WITH REFLEX TO DIRECT LDL Routine 01/17/2025 10:47 AM EDT Hypertriglyceridemia PROSTATE SPECIFIC ANTIGEN SCREEN Routine 01/17/2025 10:47 AM EDT Screening for prostate cancer CBC AND DIFFERENTIAL Routine 01/17/2025 10:47 AM EDT Hospital discharge follow-up Alcohol dependence with withdrawal with complication (CMS/HCC V24, CMS/HCC V28) QT prolongation Anxiety and depression Hemochromatosis, unspecified hemochromatosis type Wolff's esophagus without dysplasia Chronic obstructive pulmonary disease, unspecified COPD type (CMS/HCC V24, CMS/HCC V28) Hypertriglyceridemia Screening for colorectal cancer Chronic midline low back pain without sciatica COMPREHENSIVE METABOLIC PANEL Routine 01/17/2025 10:47 AM EDT Hospital discharge follow-up Alcohol dependence with withdrawal with complication (CMS/HCC V24, CMS/HCC V28) QT prolongation Anxiety and depression Hemochromatosis, unspecified hemochromatosis type Wolff's esophagus without dysplasia Chronic obstructive pulmonary disease, unspecified COPD type (CMS/HCC V24, CMS/HCC V28) Hypertriglyceridemia Screening for colorectal cancer Chronic midline low back pain without sciatica MAGNESIUM Routine 01/17/2025 10:47 AM EDT Hospital discharge follow-up Alcohol dependence with withdrawal with complication (CMS/HCC V24, CMS/HCC V28) QT prolongation Anxiety and depression Hemochromatosis, unspecified hemochromatosis type Wolff's esophagus without dysplasia Chronic obstructive pulmonary disease, unspecified COPD type (CMS/HCC V24, CMS/HCC V28) Hypertriglyceridemia Screening for colorectal cancer Chronic midline low back pain without sciatica [facility] [address] REPORT 01/04/[address] REPORT 01/04/2025 EXTERNAL XRAY REPORT 01/04/2025 EXTERNAL XRAY REPORT 01/04/2025 CT CHEST WO CONTRAST (LUNG-RADS F/U) Routine 11/21/2024 7:35 AM EDT Lung nodule CT LUNG SCREENING LOW DOSE Routine 03/22/2024 9:08 AM EDT from Last 3 Months or Most Recently Relevant to Health Maintenance Results * ECG 12 lead (01/17/2025 10:57 AM EDT) Luis Price MD - 01/17/2025 10:57 AM EDT EKG-normal sinus rhythm with a heart rate of 64. QT interval prolongation with QTc of [address]-T changes. Luis Sandoval MD ECG ORDERABLES Final Resul t * Prostate specific antigen screen (01/17/2025 10:47 AM EDT) PSA 1.82 0.00 - 4.00 ng/mL LAB CHEMISTRY METHOD 01/17/2025 4:27 PM EDT [facility] Blood Venous blood specimen / Unknown Venipuncture / Unknown 01/17/2025 10:47 AM EDT 01/17/2025 10:47 AM EDT Araceli [facility] - 01/17/2025 4:27 PM EDT The Siemens Advia Centaur Chemiluminescent Immunoassay is used. Results obtained with different assay methods or kits cannot be used interchangeably. Results cannot be interpreted as absolute evidence of the presence or absence of malignant disease. Luis Sandoval MD LAB BLOOD ORDERABLES Final Result [facility] [address] [place] [address], * (ABNORMAL) Lipid panel with reflex to direct LDL (01/17/2025 10:47 AM EDT) Pathologist [facility] Cholesterol 129 0 - 200 mg/dL LAB CHEMISTRY METHOD 01/17/2025 3:03 PM EDT [facility] Triglycerides 221(H) 0 - 150 mg/dL LAB CHEMISTRY METHOD 01/17/2025 3:03 PM EDT [facility] HDL 28(L) >=40 mg/dL LAB CHEMISTRY METHOD 01/17/2025 3:03 PM EDT [facility] LDL Calculated 57 0 - 100 mg/dL LAB CHEMISTRY METHOD 01/17/2025 3:03 PM EDT [facility] VLDL Cholesterol Delvin 44.2 mg/dL LAB CHEMISTRY METHOD 01/17/2025 3:03 PM EDT [facility] Non HDL Chol. (LDL+VLDL) 101 <145 mg/dL LAB CHEMISTRY METHOD 01/17/2025 3:03 PM EDT [facility] Chol/HDL Ratio 4.6(H) 0.0 - 4.4 LAB CHEMISTRY METHOD 01/17/2025 3:03 PM EDT [facility] Blood Venous blood specimen / Unknown Venipuncture / Unknown 01/17/2025 10:47 AM EDT 01/17/2025 10:47 AM EDT us Luis Sandoval MD LAB BLOOD ORDERABLES Final Result [facility] [address] [place] [address], * (ABNORMAL) CBC auto differential (01/17/2025 10:47 AM EDT) WBC 11.2(H) 4.8 - 10.8 K/[facility] LAB HEMETOLOGY METHOD 01/17/2025 12:34 PM EDT [facility] RBC 4.40(L) 4.50 - 5.50 M/mcL LAB HEMETOLOGY METHOD 01/17/2025 12:34 PM EDT [facility] Hemoglobin 14.5 13.5 - 17.5 g/dL LAB HEMETOLOGY METHOD 01/17/2025 12:34 PM EDT [facility] Hematocrit 43.3 42.0 - 54.0 % LAB HEMETOLOGY METHOD 01/17/2025 12:34 PM [facility] MCV 98.9(H) 79.0 - 98.0 FL LAB HEMETOLOGY METHOD 01/17/2025 12:34 PM EDT [facility] MCH 33.1(H) 27.0 - 32.0 pcg LAB HEMETOLOGY METHOD 01/17/2025 12:34 PM [facility] MCHC 33.5 32.0 - 37.0 g/dL LAB HEMETOLOGY METHOD 01/17/2025 12:34 PM [facility] RDW 12.6 11.0 - 15.0 % LAB HEMETOLOGY METHOD 01/17/2025 12:34 PM [facility] Platelets 318 130 - 400 K/mcL LAB HEMETOLOGY METHOD 01/17/2025 12:34 PM [facility] MPV 11.0 7.0 - 11.0 FL LAB HEMETOLOGY METHOD 01/17/2025 12:34 PM [facility] NRBC 0.0 <1.0 % LAB HEMETOLOGY METHOD 01/17/2025 12:34 PM [facility] NRBC Absolute 0.00 <0.10 K/mcL LAB HEMETOLOGY METHOD 01/17/2025 12:34 PM [facility] Neutrophils Relative 63.3 % LAB HEMETOLOGY METHOD [facility]/17[facility]25 12:34 [facility] Lymphocytes Relative 22.2 % LAB HEMETOLOGY METHOD 01/17/2025 12:34 PM [facility] Monocytes Relative 12.2 % LAB HEMETOLOGY METHOD 01/17/2025 12:34 PM EDT [facility] Eosinophils Relative 1.2 % LAB HEMETOLOGY METHOD 01/17/2025 12:34 PM EDT [facility] Basophils Relative 0.7 % LAB HEMETOLOGY METHOD 01/17/2025 12:34 PM EDT [facility] Immature Granulocytes Relative 0.4 % LAB HEMETOLOGY METHOD 01/17/2025 12:34 PM EDT [facility] Neutrophils Absolute 7.07(H) 1.50 - 7.00 K/mcL LAB HEMETOLOGY METHOD 01/17/2025 12:34 PM EDT [facility] Lymphocytes Absolute 2.48 1.00 - 5.00 K/mcL LAB HEMETOLOGY METHOD 01/17/2025 12:34 PM EDT [facility] Monocytes Absolute 1.36(H) 0.20 - 1.00 K/mcL LAB HEMETOLOGY METHOD 01/17/2025 12:34 PM EDT [facility] Eosinophils Absolute 0.13 0.00 - 0.50 K/mcL LAB HEMETOLOGY METHOD 01/17/2025 12:34 PM EDT [facility] Basophils Absolute 0.08 0.00 - 0.20 K/mcL LAB HEMETOLOGY METHOD 01/17/2025 12:34 PM EDT [facility] Immature Granulocytes Absolute 0.04(H) 0.00 - 0.03 K/mcL LAB HEMETOLOGY METHOD 01/17/2025 12:34 PM EDT [facility] Blood Venous blood specimen / Unknown Venipuncture / Unknown 01/17/2025 10:47 AM EDT 01/17/2025 10:47 AM EDT us Luis Sandoval MD LAB BLOOD ORDERABLES Final Result [facility] [address] [place] [address], * (ABNORMAL) Magnesium (01/17/2025 10:47 AM EDT) [facility] Magnesium 1.6(L) 1.9 - 2.6 mg/dL LAB CHEMISTRY METHOD 01/17/2025 3:02 PM EDT [facility] Blood Venous blood specimen / Unknown Venipuncture / Unknown 01/17/2025 10:47 AM EDT 01/17/2025 10:47 AM EDT Luis Sandoval MD LAB BLOOD ORDERABLES Final Result Performing Organization Address [facility]/ZIP Co de Phone Number [facility] [address] [place] [address], [place] [phone] * Hemoglobin A1c (01/17/2025 10:47 AM EDT) [facility] Hemoglobin A1C 5.9 <6.5 % LAB CHEMISTRY METHOD 01/17/2025 1:47 PM EDT [facility] Mean Bld Glu Estim. 123 mg/dL LAB CHEMISTRY METHOD 01/17/2025 1:47 PM EDT [facility] Blood Venous blood specimen / Unknown Venipuncture / Unknown 01/17/2025 10:47 AM EDT 01/17/2025 10:47 AM EDT Luis Sandoval MD LAB BLOOD ORDERABLES Final Result [facility] [address] [place] [address], [place] [phone] * (ABNORMAL) Comprehensive metabolic panel (01/17/2025 10:47 AM EDT) [facility] Sodium 134 133 - 145 mmol/L LAB CHEMISTRY METHOD 01/17/2025 3:03 PM EDT [facility] Potassium 3.7 3.5 - 5.5 mmol/L LAB CHEMISTRY METHOD 01/17/2025 3:03 PM [facility] Chloride 97 96 - 110 mmol/L LAB CHEMISTRY METHOD 01/17/2025 3:03 PM [facility] CO2 31 21 - 32 mmol/L LAB CHEMISTRY METHOD 01/17/2025 3:03 PM [facility] Anion Gap 6 3 - 11 LAB CHEMISTRY METHOD 01/17/2025 3:03 PM [facility] Glucose 72 70 - 100 mg/dL LAB CHEMISTRY METHOD 01/17/2025 3:03 PM [facility] BUN 6 5 - 25 mg/dL LAB CHEMISTRY METHOD 01/17/2025 3:03 PM [facility] Creatinine 0.62(L) 0.70 - 1.30 mg/dL LAB CHEMISTRY METHOD 01/17/2025 3:03 PM [facility] eGFR 109 >=60 mL/min/1. 73m2 LAB CHEMISTRY METHOD 01/17/2025 3:03 PM [facility] Comment:Calculation based on the Chronic Kidney Disease Epidemiology Collaboration (CKD-EPI) equation refit without adjustment for race. BUN/Creatinine Ratio 9.7 LAB CHEMISTRY METHOD 01/17/2025 3:03 PM [facility] Calcium 9.1 8.5 - 10.5 mg/dL LAB CHEMISTRY METHOD 01/17/2025 3:03 PM [facility] AST (SGOT) 47(H) 10 - 42 unit/L LAB CHEMISTRY METHOD 01/17/2025 3:03 PM [facility] ALT (SGPT) 38 10 - 60 unit/L LAB CHEMISTRY METHOD 01/17/2025 3:03 PM [facility] Alkaline Phosphatase 103 42 - 121 unit/L LAB CHEMISTRY METHOD 01/17/2025 3:03 PM [facility] Total Protein 6.5 6.0 - 8.0 g/dL LAB CHEMISTRY METHOD 01/17/2025 3:03 PM EDT [facility] Albumin 2.9(L) 3.2 - 5.0 g/dL LAB CHEMISTRY METHOD 01/17/2025 3:03 PM EDT [facility] Total Bilirubin 0.8 0.0 - 1.4 mg/dL LAB CHEMISTRY METHOD 01/17/2025 3:03 PM EDT [facility] Blood Venous blood specimen / Unknown Venipuncture / Unknown 01/17/2025 10:47 AM EDT 01/17/2025 10:47 AM EDT Luis Sandoval MD LAB BLOOD ORDERABLES Final Result [facility] [address] [place] [address], * External clinical lab (2025) Provider [facility] LAB BLOOD ORDERABLES Fin al Result * External Xray Report (01/04/2025) Only the most recent of2 resultswithin the time period is included. Anatomical Region Laterality Modality Radiographic Chastity ging Provider [facility] IMG XR PROCEDURES Final Result * External CT Report (01/04/2025) Only the most recent of2 resultswithin the time period is included. Anatomical Region Laterality Modality Computed Tomogra phy Provider [facility] IMG CT PROCEDURES Final Result * CT Chest wo Contrast (Lung-RADS F/U) [...] Signed Date: 11/21/2024 07:54 ET Workstation ID: [id number] Transcribed By: Self Edit Transcribed Date: 11/21/2024 [...] with average Hounsfield unit readings of -2. 5-1.9 cm () 07/09/2024-2.0 cm () 03/20/2024-2.0 cm. CARDIAC: The heart is not [...] PM EDT Narrative 03/22/2024 9:08 AM EDT [facility] Diagnostic Imaging Department [address] [place] [address] Patient: JUNAIDJUSTICE Sisi /Age/Sex: 1965 - 59 - M Unit#: [id number] Location/Status: [facility] [place] Mnemonic/Ordering Site: [facility] Ordering Physician: ARRON ANDREW MD CT Lung Screening Low Dose [...] months from this baseline exam. Dictating Physician: CHRISTIAN HORNE MD Electronically Signed by: CHRISTIAN HORNE MD Dic Date/Time: 03/22/24858 Sign date/Time: 03/22/24907 Procedure Note Christian Horne MD - 04/12/2024 [facility] Diagnostic Imaging Department [address] [place] [address] Patient: JUNAIDJUSTICE J /Age/Sex: 1965 - 59 - M Unit#: [id number] [facility]Ordering Site: [facility] Ordering Physician: ARRON ANDREW MD CT Lung Screening Low Dose - 03/20/24 - 6891 Report Status:Signed PROCEDURE: CT chest lung cancer [...] 3 months from thisbaseline exam. Dictating Physician: CHRISTIAN HORNE MD Electronically Signed by: CHRISTIAN HORNE MD Dic Date/Time: 03/22/24 0859 Sign date/Time: 03/22/24 0908 Arron Andrew MD IMG CT PROCEDURES Final Result from Last 3 Months or Most Recently Relevant to Health Maintenance Insurance [facility] MEDICARE Member Subscriber Plan / Payer (Ef fective 2018-Present) Name:JUSTICE COELLO Relation to Subscriber:Self Name:Justice Coello Payer ID:[id number] Group ID:[id number] Type:Not on file Address: [place] [address] [address] [address] Care Teams Name Plate Stamper Relationship Specialty Start Date End Date Luis Sandoval MD [address] [place] [id number] PCP - General 06/14/23
--- OUTSIDE RECORDS SUMMARY | 2025-01-29 14:28 | XMS_ITS | Clinical Summary ---
Author Organization [facility] Address [address] [place] [address] Care Team Providers Care Supervisor Instrument Mechanics Name Role Phone Luis Sandoval MD Primary Care Provider [phone] Allergies Active Allergy Reactions Criticality Noted Date [...] different from the original. Therapeutic Phlebotomy - [facility] Problem Noted Date Diagnosed Date Stenosis, [...] age to complete this topic Care Teams Supervisor Instrument Mechanics Relationship Specialty Start Date End Date Luis Sandoval MD [address] [place] [address] [phone] PCP - General Primary Care 06/14/23
[2025-01-29 14:33] VITALS: BP 142/82; PULSE 90; O2SAT 96; BMI 31.3
--- NOTE | 2025-01-29 14:33 | A.OFFVIS_ITS ---
Vital Signs 01/29/25 14:33 Height 5 ft 7 in Weight 200 lb BMI 31.3 BP 142/82 H Pulse 90 Pulse Oximetry (%) 96 Intake Visit Reasons: MAT Allergies shellfish derived Allergy (Verified 01/29/25 14:34) Itching HPI Comments Details: A 60-year-old male presents for a follow-up visit with aunt related to alcohol use disorder. He is alert and oriented x3, making jokes and laughing, a positive change from initial baseline 3 weeks ago. Reports abstaining from alcohol use since inpatient detox approximately 3 weeks ago continues with acamprosate 666 mg 3 times per day prescribed by primary care physician. Denies opioid use or other substances with the exception of smoking marijuana. 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 [facility] Medical History Alcohol dependence Hereditary hemochromatosis Torn rotator cuff Sciatic nerve disease HTN (hypertension) Surgical History (Updated 01/20/25 @ 00:01 by Roseline Galindo) Previous back surgery Social History Household Members: Family Housing: House Do you presently have visiting nurse or other home services: Yes Alcohol intake: current Alcohol intake frequency: 3 or more drinks per day Alcohol type: beer Patient Tobacco Use Status: Current everyday Tobacco user Tobacco use type: Cigarette Cigarettes Per Day: 10 Substance Use Type: Marijuana service: No Review of Systems Const All systems reviewed & are unremarkable except as noted in HPI and below Physical Exam Vital Signs: Last Vital Signs Pulse 90 01/29/25 14:33 BP 142/82 H 01/29/25 14:33 Pulse Ox 96 01/29/25 14:33 BMI result Body Mass Index 31.3 Const General: cooperative and well groomed Orientation/consciousness: patient oriented x3 Limitations: no limitations Neuro General: patient oriented x3 Psych Appearance: well kempt Mental Status: mental status grossly normal Speech and movement: Normal speech and movement present Affect: Animated affect present Attitude: cooperative Thought process: Normal thought process present Thought content: Normal thought content present Insight: Good insight present (Psych) Judgement: Good judgement present (Psych) Assessment & Plan Assessment & Plan (1) Alcohol use disorder, severe, in early remission: Code(s): F10.21 - Alcohol dependence, in remission Category: Medical Plan The plan of care is to continue with acamprosate as prescribed by PCP. 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 Patient Instructions: - Continue with acamprosate as ordered by PCP. - Follow up with referral source for assistant track and field coach. - Follow up in two months or sooner, if needed. - The patient verbalized understanding and agreed with plan of care. Coding Level of Care Code Est Pt Level 3 (79407) Diagnoses Alcohol use disorder, severe, in early remission F10.21
== END 2025-01-29 14:58 | disposition home or self-care (01) ==
PROVIDERS: PCP Internal Medicine; Visit Provider Clinical Nurse Specialist Psychiatric/Mental Health
DX: F10.21 Alcohol dependence, in remission (principal)
CPT/HCPCS: 99213

== ENCOUNTER → 2025-01-29 14:24 | Outpatient (BNVA) | payer OTHER, SELFPAY | PROVIDERS: PCP Internal Medicine; Visit Provider Clinical Nurse Specialist Psychiatric/Mental Health | DX: F10.21 Alcohol dependence, in remission (principal) | CPT/HCPCS: 99212 ==